=== PATIENT | male | born 1940 | race Caucasian/White ===

== ENCOUNTER 2017-05-06 12:13 | Inpatient (IN) | payer OTHER, MEDICARE ==
--- NOTE | 2017-05-06 12:37 | PDOC ---
History of Present Illness - General History Source: Patient Exam Limitations: No Limitations - History of Present Illness Initial Comments: 05/06/17 12:42 The patient is a 76 year old male with significant history of hypertension, hyperlipidemia, diet controlled diabetes, COPD, sleep apnea, atrial fibrillation several years ago, who presents to the ED complaining of approximately 1 month of intermittent palpitations with associated exertional dyspnea and lightheadedness. Today, his palpitations, shortness of breath, and lightheadedness became noticeably worse, prompting him to come to the ED for evaluation. The patient also reports left sided neck and shoulder discomfort and "numbness", which his reports has been extending to the left chest over the past month. No true chest pain, no chest pain today. No shortness of breath at rest. He also complains of chronic left lower extremity numbness which is unchanged. The patient denies any fever or chills. He denies nausea, vomiting, or diarrhea. He denies any acute visual changes, headache, or focal weakness. He denies any peripheral edema. Patient noted to be tachycardic to the 160s on evaluation. PCP: Dr. Herrera (retired) Air Brake Man: Dr. Butt Ham Sawyer: Dr. Schafer SH: Does endorse moderate alcohol consumption. States he drank coffee this morning prior to the onset of his symptoms today. NKDA <Mary Kenny - Last Filed: 05/06/17 13:58> <Pari Delacruz - Last Filed: 05/06/17 14:29> - General Chief Complaint: Palpitations Stated Complaint: PALPITATIONS Time Seen by Provider: 05/06/17 12:23 Past History <Mary Kenny - Last Filed: 05/06/17 13:58> - Past Medical History COPD: Yes Disorders: Yes (prostatic hypertrophy) HTN: Yes Hypercholesterolemia: Yes - Psycho/Social/Smoking Cessation Hx Anxiety: No Suicidal Ideation: No Smoking History: Unknown if ever smoked Have you smoked in the past 12 months: No If you are a former smoker, when did you quit?: MORE THAN 10 YEARS Information on smoking cessation initiated: No Hx Alcohol Use: No Drug/Substance Use Hx: No Substance Use Type: None <Pari Delacruz - Last Filed: 05/06/17 14:29> - Past Medical History Allergies/Adverse Reactions: Allergies Allergy/AdvReac Type Severity Reaction Status Date / Time No Known Allergies Allergy Verified 05/06/17 12:18 Home Medications: Ambulatory Orders Rosuvastatin Calcium [Crestor] 5 mg PO DAILY 05/12/15 Chlorthalidone 25 mg PO DAILY 05/06/17 Clonidine HCl 0.1 mg PO Q7D 05/06/17 Colchicine 0.6 mg PO BID 05/06/17 Doxazosin Mesylate 8 mg PO DAILY 05/06/17 Finasteride 5 mg PO DAILY 05/06/17 Finasteride 5 mg PO DAILY 05/06/17 Review of Systems - Review of Systems Able to Perform ROS?: Yes Comments:: 05/06/17 12:50 GENERAL/CONSTITUTIONAL: +Generalized malaise. No fever or chills. HEAD, EYES, EARS, NOSE AND THROAT: +"I can hear my heartbeat"x 6 months. No acutes change in vision. No ear pain or discharge. No sore throat. CARDIOVASCULAR: +Intermittent palpitations, exertional dyspnea x 1 month, lightheadedness. +L sided chest discomfort. No peripheral edema. RESPIRATORY: No cough, wheezing, or hemoptysis. GASTROINTESTINAL: No nausea, vomiting, diarrhea or constipation. GENITOURINARY: No dysuria, frequency, or change in urination. MUSCULOSKELETAL: +L neck and shoulder discomfort. +Chronic lower back pain. No muscle swelling or pain. SKIN: No rash NEUROLOGIC: +Numbness in left shoulder/chest x 1month. +chronic LLE numbness. No headache, vertigo, loss of consciousness, or change in strength. ENDOCRINE: No increased thirst. No abnormal weight change. HEMATOLOGIC/LYMPHATIC: No anemia, easy bleeding, or history of blood clots. ALLERGIC/IMMUNOLOGIC: No hives or skin allergy. <Mary Kenny - Last Filed: 05/06/17 13:58> *Physical Exam - Vital Signs Last Vital Signs Temp Pulse Resp BP Pulse Ox 98.4 F 150 H 18 152/101 100 05/06/17 12:18 05/06/17 12:18 05/06/17 12:18 05/06/17 12:18 05/06/17 12:18 - Physical Exam Comments: 05/06/17 12:53 GENERAL: Awake, alert, and fully oriented, in no acute distress HEAD: No signs of trauma EYES: PERRLA, EOMI, sclera anicteric, conjunctiva clear ENT: Auricles normal inspection, hearing grossly normal, nares patent, oropharynx clear without exudates. Moist mucosa NECK: Normal ROM, supple, no lymphadenopathy, JVD, or masses LUNGS: Lung sounds diminished at the bases. No wheezes, and no crackles HEART: Tachycardic, irregularly irregular, no murmurs, rubs or gallops ABDOMEN: Soft, obese abdomen. Nontender, normoactive bowel sounds. No guarding , no rebound. No masses EXTREMITIES: Normal range of motion, no edema. No clubbing or cyanosis. No cords, erythema, or tenderness NEUROLOGICAL: Cranial nerves II through XII grossly intact. Normal speech, normal gait. MS 5/5/ x 4 extremities. Sensation intact throughout. SKIN: Warm, Dry, normal turgor, no rashes or lesions noted. <Mary Kenny - Last Filed: 05/06/17 13:58> - Vital Signs Last Vital Signs Temp Pulse Resp BP Pulse Ox 98.4 F 150 H 18 152/101 100 05/06/17 12:18 05/06/17 12:18 05/06/17 12:18 05/06/17 12:18 05/06/17 12:18 <Pari Delacruz - Last Filed: 05/06/17 14:29> Heart Score/ECG Review - History History: Moderately suspicious - Electrocardiogram EKG: Significant ST-depression - Age Age: >/= 65 - Risk Factors Risk Factors Heart Score: Yes Hx Hypercholesterolemia, Yes Hx Hypertension, Yes Hx Diabetes Based on the list above the patient has:: >/=3 risk factors or Hx atherosclerotic disease - Troponin Troponin: </= normal limit - Score Heart Score - Total: 7 - ST and T Comment:: 05/06/17 14:28 afib at 152, st depression v3-v6, I, avl, abnl ekg <Pari Delacruz - Last Filed: 05/06/17 14:29> ED Treatment Course - LABORATORY CBC & Chemistry Diagram: 05/06/17 12:43 05/06/17 12:43 - RADIOLOGY Radiology Studies Ordered: 05/06/17 13:22 Chest x-ray, reviewed and interpreted by Dr. Manzo Radiograph Interpretation: 05/06/17 13:25 Impression: No evidence of airspace consolidation, pulmonary vascular congestion or pleural effusion. <Mary Kenny - Last Filed: 05/06/17 13:58> - LABORATORY CBC & Chemistry Diagram: 05/06/17 12:43 05/06/17 12:43 <Pari Delacruz - Last Filed: 05/06/17 14:29> Medical Decision Making - Medical Decision Making 05/06/17 12:[address] Carbajal, covering membership manager for patient's membership manager, Dr. Butt. States Dr. Butt will see the patient. 05/06/17 13:[address] Butt at [phone]. Awaiting callback. 05/06/17 13:[address] Butt who agreed to consult. Requested patient be started on Eliquis 5 BID with telemetry admission. <Mary Kenny - Last Filed: 05/06/17 13:58> - Critical Care Time Total Critical Care Time (minutes): 30 Critical Care Statement: The care of this patient involved high complexity decision making to prevent further life threatening deterioration of the patient 's condition and/or to evaluate & treat vital organ system(s) failure or risk of failure. - Medical Decision Making 05/06/17 13:10 a/p: 76yo male with afib w rvr. Given month long hx of palpitations concerns for PAF. Currently in RVR. -Will check labs, tsh, trop -cardizem iv -repeat ekg -cardiac monitoring -will discuss with cardiology -most likely will need inpt admission for further eval and workup for new onset afib 05/06/17 13:11 re-eval: HR 97. Pt currently asymptomatic. Still with afib but now with a CVR -will give PO cardizem -pt pending xray and lab results 05/06/17 14:[address] Butt requests elaquis 5mg BID Case discussed with Dr. Cardenas (covering for DR. Schafer) who will see the patient in consult Case discussed with DR. Lim (IM-hospitalist) who accepts pt to hospital. Admit under Dr. Stephenson to tele. 05/06/17 14:15 <Pari Delacruz - Last Filed: 05/06/17 14:29> *DC/Admit/Observation/Transfer - Attestations Scribe Attestion: 05/06/17 12:54 Documentation prepared by Mary Kenny, acting as medical records manager for Pari Delacruz DO. <Mary Kenny - Last Filed: 05/06/17 13:58> - Discharge Dispostion Admit: Yes - Attestations Scribe Attestion: 05/06/17 13:21 05/06/17 13:22 Physician Attestion: 05/06/17 14:27 A portion of this note was documented by scribe services under my direction. I have reviewed the details of the note, within reason, and agree with the documentation with the following case summary and management plan written by me. <Pari Delacruz - Last Filed: 05/06/17 14:29> Diagnosis at time of Disposition: Hypomagnesemia Atrial fibrillation Qualifiers: Atrial fibrillation type: unspecified Qualified Code(s): I48.91 - Unspecified atrial fibrillation - Referrals Referrals: Rudy Herrera MD [Primary Care Provider] -
[2017-05-06] MEDS ORDERED: dilTIAZem HCL 50 MG/10 ML - 10 ML VIAL IVPUSH ONE ×2 (12:39→16:13)
[2017-05-06 12:55] LABS: BASOPHIL 0.6 % (0-2.0); MCHC 34.4 g/dl (32.0-35.9); MEAN CELL VOLUME 87.3 fl (80-96); MEAN PLT VOLUME 8.3 fl (7.5-11.1); NEUTROPHILS 71.3 % (42.8-82.8); PLATELET COUNT 149 K/MM3 (134-434); RDW 13.2 % (11.9-15.9)
[2017-05-06] MEDS ORDERED: dilTIAZem HCL 30 MG TABLET (FP) PO ONE ×2 (13:08→16:03)
[2017-05-06 13:10] LABS: INR 1.18 (0.82-1.09)
[2017-05-06 13:13] LABS: ACTIVATED PTT 30.7 SECONDS (26.9-34.4)
[2017-05-06] MEDS ORDERED: dilTIAZem HCL 30 MG TABLET (FP) ONE ×2 (13:15→16:09)
[2017-05-06 13:28] LABS: ALBUMIN 3.8 g/dl (3.4-5.0); ALK PHOS 65 U/L (45-117); ANION GAP 7 (8-16); BILIRUBIN,TOTAL 0.5 mg/dL (0.2-1.0); CALCIUM 9.9 mg/dL (8.5-10.1); CO2 31 mmol/L (21-32); CPK 140 IU/L (39-308); CREATININE 0.8 mg/dL (0.7-1.3); GLUCOSE,RANDOM 181 mg/dL (74-106); MAGNESIUM 1.4 mg/dL (1.8-2.4); SGOT/AST 21 U/L (15-37); SGPT/ALT 35 U/L (12-78); TOT PROT 7.3 g/dl (6.4-8.2)
[2017-05-06] MEDS ORDERED: MAGNESIUM SULF 50% (8.12 MEQ/2 ML-1 GM VIAL) IVPB ONE (13:33)
[2017-05-06 13:36] LABS: THYROID STIMULATING HORMONE 0.43 uIU/ml (0.358-3.74); TROPONIN I 0.02 ng/ml (0.00-0.05)
[2017-05-06] MEDS ORDERED: MAGNESIUM SULF 50% (8.12 MEQ/2 ML-1 GM VIAL) ONE (13:43)
--- NOTE | 2017-05-06 14:28 | CON.CARD ---
Consult Consult Specialty:: cardio Referred by:: ER Reason for Consultation:: Afib - History of Present Illness Chief Complaint: palpitations History of Present Illness: 76 yo male presented to ER due to palpitations. noted to be in rapid Afib, given mult doses of po and iv diltiazem, and started on Eliquis. pt describes feeling his heart racing earlier this am. he also felt very sob with routine house chore (vacuuming the carpet). sat and rest, checked BP which was 100 diast, unusual for him so called my office and i advised come in. no definite heart racing feeling prior to today. has chronic pulsatile tinnutus waxes and wanes for few yrs (proven to be unrelated to any of his meds in past). has had PVC palpitations at times (skipped beats), none of late. but never rapid heart racing feeling. denies any cp/tightness/heaviness. has chronic sx of phlegm in airways as well as ears feeling clogged, with head pressure--stable/ongoing sx's. has had numbness in toes/feet for a while now, not yet worked up--recently referred to neuro but appt still pending. for few weeks he has been feeling numbness in L side of head/L shoulder and upper arm, and L axillary line--this is new. it is nonexertional, present every day pretty much. PMH: HTN HPL COPD BPH gout DM--diagnosed 2016, controlled with diet only - Alcohol/Substance Use Hx Alcohol Use: No - Smoking History Smoking history: Unknown if ever smoked Have you smoked in the past 12 months: No If you are a former smoker, when did you quit?: MORE THAN 10 YEARS Home Medications - Allergies Allergies/Adverse Reactions: Allergies Allergy/AdvReac Type Severity Reaction Status Date / Time No Known Allergies Allergy Verified 05/06/17 12:18 - Home Medications Home Medications: Ambulatory Orders Rosuvastatin Calcium [Crestor] 5 mg PO DAILY 05/12/15 Chlorthalidone 25 mg PO DAILY 05/06/17 Clonidine HCl 0.1 mg PO Q7D 05/06/17 Colchicine 0.6 mg PO BID 05/06/17 Doxazosin Mesylate 8 mg PO DAILY 05/06/17 Finasteride 5 mg PO DAILY 05/06/17 Finasteride 5 mg PO DAILY 05/06/17 Family Disease History - Family Disease History Family History: Denies (no cmp) Review of Systems - Review of Systems Constitutional: denies: Chills, Fever Eyes: denies: Eye Pain HENT: denies: Nasal Congestion Neck: denies: Stiffness Cardiovascular: denies: Edema Respiratory: denies: Orthopnea, PND Gastrointestinal: denies: Diarrhea, Rectal Bleeding Genitourinary: denies: Burning, Hematuria Musculoskeletal: denies: Muscle Pain Integumentary: denies: Rash Neurological: reports: Numbness. denies: Seizure, Syncope Endocrine: denies: Excessive Sweating Hematology/Lymphatic: denies: Excessive Bleeding Vital Signs: Vital Signs Temperature 98.4 F 05/06/17 12:18 Pulse Rate 90 05/06/17 13:04 Respiratory Rate 18 05/06/17 12:18 Blood Pressure 152/101 05/06/17 12:18 O2 Sat by Pulse Oximetry (%) 98 05/06/17 12:53 Constitutional: Yes: Well Nourished, No Distress Eyes: No: Sclera Icterus HENT: No: Nasal Congestion Neck: No: Decreased ROM Respiratory: Yes: CTA Bilaterally. No: Accessory Muscle Use, Rales, Wheezes Gastrointestinal: Yes: Normal Bowel Sounds. No: Distention, Hepatomegaly, Palpable Mass, Tenderness Cardiovascular: Yes: Pulse Irregular JVD: No Carotid Bruit: No PMI: Non-Displaced Heart Sounds: Yes: S1, S2. No: Gallop Murmur: No: Systolic Murmur, Diastolic Murmur Musculoskeletal: Yes: Other (No kyphosis) Extremities: No: Cool, Cyanosis Edema: No Peripheral Pulses: 2+ Left Carotid, 2+ Right Carotid, 2+ Left Doralis Pedis, 2+ Right Dorsalis Pedis Integumentary: No: Jaundice Neurological: Yes: Alert, Oriented (x3) Psychiatric: No: Agitated - Other Data Labs, Other Data: CBC, BMP 05/06/17 12:43 05/06/17 12:43 INR, PTT INR 1.18 (0.82-1.09) H 05/06/17 12:43 Troponin, BNP 05/06/17 12:43 Troponin I 0.02 B-Natriuretic Peptide 92.88 Troponin, BNP 05/06/17 12:43 Troponin I 0.02 B-Natriuretic Peptide 92.88 Laboratory Tests 05/06/17 05/06/17 12:43 12:43 WBC 6.0 Hgb 14.7 Plt Count 149 Sodium 135 L Potassium 3.8 D Carbon Dioxide 31 D BUN 16 D Creatinine 0.8 D AST 21 ALT 35 D Creatine Kinase 140 Troponin I 0.02 B-Natriuretic Peptide 92.88 TSH 0.43 Assessment/Plan Coronary Calcium Score 01/20: 1074, 83rd %ile MIBI 02/20 (lexiscan): no STs, no isch; nl EF; mild LVE w/o TID Echo 01/20: TDS; nl LV/EF; nl RV; nl LA; mild /AI; nl LAP (no RVSP) CXR: clear lungs/pleura ECG: tachy with HR 152 = afib vs atypical flutter with variable A:V conduction ( based on R-R intervals, regular at times); normal axis. ischemic ST depressions V3-V6, I/II/avF Afib-- -NEW DX, RAPID HR'S IN ER WITH TRANSIENT RESPONSE TO DOSES OF PO AND IV DILTIAZEM. -CHADS-VASC = 4, HENCE BENEFITS OF AC >> RISKS. CONT ELIQUIS 5MG BID -ischemic ST changes on ecg at HR 152, with significant coronary athero burden on coronary calcium score--rpt ECG at lower HR, monitor troponins. -will need nuclear stress test for risk stratification--ok as outpt if remains without angina and with negative enzymes, and ST segments normalize with HR control (repeat ecg ordered for AM) -received diltiazem 30mg po x2, 20mg IVP x2 over the past 4 hours or so in ER-- HRs improved but still suboptimal -admit to tele -unfortunately, his med s.e. history (including intolerable edema on diltiazem 240mg qd) and h/o chronic bronchitis with episodic wheezing, makes it fairly unlikely he will tolerate high doses of CCB or BB over the long-term. -will start with toprol 50 bid, add diltiazem CD 120mg qd if not controlled -if does not convert to sinus overnight, will plan HODAN-guided DCCV tomorrow Essential hypertension -WELL-DOCUMENTED W.C. HTN IN OFFICE, WITH SIGNIF ANXIETY ABOUT BP. -HE HAS LIKELY BEEN CHRONICALLY SUBOPTIMALLY CONTROLLED OUT OF OFFICE WELL-- FOR LONG TIME DID NOT DO HOME CHECKS DUE TO ANXIETY, RECENTLY HOME BP'S CONTROLLED ? DUE TO SIGNIFICANTLY IMPROVED DIET AND WT LOSS (? MACHINE ACCURATE- -NOT CHECKED). -BP MODERATELY ELEVATED HERE, LIKELY ANXIETY COMPONENT IN RAPID AFIB WITH SX'S -S.E.S SIGNIFICANTLY LIMIT MED OPTIONS HERE (PREVIOUSLY INTOLERANT OF HYDRALAZINE, AMLODIPINE, NIFEDIPINE, DILTIAZEM 240MG, BYSTOLIC 5MG, SPIRONO, EPLERENONE, LABETALOL 100MG). -URINARY FREQ AND GOUT LIMITS DIURETICS. -cont home benicar (valsartan while here), HCTZ--hold clonidine patch while observe BP trend with addition of BB +/- CCB here Edema -LE VEIN DUPLEX UNDERWHELMING FOR PLATINUM VENOUS INS'Y--1+ REFLUX ONLY -VERY SENSITIVE TO VENODILATING MEDS (MULT CCBS AND BYSTOLIC INTOLERABLE IN PAST ) COPD/Chronic bronchitis -IMPROVED ON CURRENT INHALER REGIMEN, PER DR ELLER Obstructive sleep apnea -COMPLIANT WITH CPAP; Pure hypercholesterolemia -PRIMARY PREVN; SUBCLINICAL ATHERO--COR CALCIUM SCORE HI (1074, 83RD %ILE) -CONTROLLED WITH CRESTOR 5MG QD AT HOME; CONT SAME (OR DOSE EQUIVALENT) HERE Type 2 diabetes mellitus without complication -RECENT NEW DX OF DM WITH A1C 6.7 -IMPROVED SIGNIFICANTLY WITH TLC'S--6.1 LAST.
[2017-05-06] MEDS: APIXABAN 5 MG TABLET PO SCH ×2 (14:38→21:36)
--- NOTE | 2017-05-06 15:49 | HP ---
CHIEF COMPLAINT: Palpitations and shortness of breath PCP: Previously Dr. Perdomo, Stencil Machine Operator Dr. Butt HISTORY OF PRESENT ILLNESS: Patient is a 76 yo M w/ PMH DM, HTN, HLD, COPD, EYAD, previous afib in the past comes to the ED c/o Palpitations and shortness of breath since this morning. Patient was in his baseline state of health until 1 month ago when he began to feel a "numbness and heaviness" along the left side of his body. The numbness was associated with a feeling of "pressure in his ears". This morning, the patient states that he was doing chores when he felt a sudden onset of fluttering in the chest accompanied by shortness of breath and lightheadedness. The patient took his blood pressure with a home wrist cuff which showed "a low number". The patient's new onset of symptoms prompted him to go to the ED. Patient has never had an episode like this in the past. Patient is also complaining of "numbness and tingling in the feet" Which has been present for several months. ER course was notable for: (1) Heart rate to 130 (2) Blood Pressure 122/92 (3) Patient received Cardizem 20mg IVPUSH, 30mg Cardizem PO two times. Patient' s rate responded to this medication, but then was back in the 130's (4) EKG reveals rapid afib with RVR and ST depressions Recent Travel: none PAST MEDICAL HISTORY: -see above PAST SURGICAL HISTORY: -no past surgeries Social History: Smoking: Patient smoked 2 packs per day for 50 years, quit 10 years ago Alcohol: social drinker Drugs: Family History: Mother- in her 70's due to a heart attack Father- of bladder cancer Brother- in his late 50's due to cardiac issues; he had had a valve replacement Allergies No Known Allergies Allergy (Verified 05/06/17 12:18) HOME MEDICATIONS: Home Medications Medication Instructions Recorded Rosuvastatin Calcium [Crestor] 5 mg PO DAILY 05/12/15 Chlorthalidone 25 mg PO DAILY 05/06/17 Clonidine HCl 0.1 mg PO Q7D 05/06/17 Colchicine 0.6 mg PO BID 05/06/17 Doxazosin Mesylate 8 mg PO DAILY 05/06/17 Finasteride 5 mg PO DAILY 05/06/17 Finasteride 5 mg PO DAILY 05/06/17 REVIEW OF SYSTEMS Negative except for above PHYSICAL EXAMINATION GENERAL: Awake, alert, and fully oriented, in no acute distress. HEAD: Normal with no signs of trauma. EYES: Pupils equal, round and reactive to light, extraocular movements intact, sclera anicteric, conjunctiva clear. No lid lag. NECK: Normal range of motion, supple without lymphadenopathy, JVD, or masses. LUNGS: Breath sounds equal, clear to auscultation bilaterally. No wheezes, and no crackles. No accessory muscle use. HEART: Regular rate and rhythm, normal S1 and S2 without murmur, rub or gallop. ABDOMEN: Soft, nontender, not distended, normoactive bowel sounds, no guarding, no rebound, no masses. MUSCULOSKELETAL: Normal range of motion at all joints. No bony deformities or tenderness. No CVA tenderness. UPPER EXTREMITIES: 2+ pulses, warm, well-perfused. No cyanosis. No clubbing. No peripheral edema. LOWER EXTREMITIES: 2+ pulses, warm, well-perfused. No calf tenderness. No peripheral edema. NEUROLOGICAL: Cranial nerves II-X intact. Normal speech. Gait not observed. PSYCHIATRIC: Cooperative. Good eye contact. Appropriate mood and affect. SKIN: Warm, dry, normal turgor, no rashes or lesions noted, normal capillary refill. ASSESSMENT/PLAN: 76 yo M w/ PMH DM, HTN, COPD, EYAD presents to the ED complaining of palpitations , lightheadedness. In the ED, patient was found to be in rapid afib with RVR with heart rates in the 150's and a stable blood pressure. Patient admitted to telemetry for rate and rhythm control. #Rapid a-fib with RVR -Patient received Cardizem IV and oral doses which controlled rate temporarily -cardizem GTT -Cardiology consulted: Dr. Butt; requests patient be placed on eliquis -TSH .43 -troponin negative x1, will repeat this PM -Echo in AM -CHADS VASC Score= 4 #Diabetes mellitus (uncontrolled) -HbA1c -daily sugars -diabetic diet -will hold off on insulin until A1C comes back #COPD/EYAD -Patient on Breo and Ventolin PRN at home -Spiriva daily and Nebs PRN -pulmonology consulted; Dr. Schafer -patient's son to bring his home CPAP machine to hospital #HTN -patient on chlorthalidone at home -continue home medications #HLD -continue home crestor #BPH -continue home flomax FEN -no indication for fluids at this time -monitor lytes -diabetic diet prophy -on eliquis 5mg -no indication for Gi prophylaxsis Dispo -admit to tele for rate control Problem List - Problem (1) Atrial fibrillation Code(s): I48.91 - UNSPECIFIED ATRIAL FIBRILLATION Qualifiers: Atrial fibrillation type: unspecified Qualified Code(s): I48.91 - Unspecified atrial fibrillation (2) Dependent edema Code(s): R60.9 - EDEMA, UNSPECIFIED (3) Diabetes mellitus Code(s): E11.9 - TYPE 2 DIABETES MELLITUS WITHOUT COMPLICATIONS (4) COPD (chronic obstructive pulmonary disease) Code(s): J44.9 - CHRONIC OBSTRUCTIVE PULMONARY DISEASE, UNSPECIFIED (5) EYAD (obstructive sleep apnea) Code(s): G47.33 - OBSTRUCTIVE SLEEP APNEA (ADULT) (PEDIATRIC) (6) BPH (benign prostatic hyperplasia) Code(s): N40.0 - BENIGN PROSTATIC HYPERPLASIA WITHOUT LOWER URINRY TRACT SYMP (7) HLD (hyperlipidemia) Code(s): E78.5 - HYPERLIPIDEMIA, UNSPECIFIED Visit type - Emergency Visit Emergency Visit: Yes ED Registration Date: 05/06/17 Care time: The patient presented to the Emergency Department on the above date and was hospitalized for further evaluation of their emergent condition. - New Patient This patient is new to me today: Yes Date on this admission: 05/06/17 - Critical Care Critical Care patient: No
--- NOTE | 2017-05-06 16:00 | CONSULT ---
Consultation: REQUESTING PROVIDER: Andrea CONSULT REQUEST: We have been asked to medically evaluate this patient for ( specify). HISTORY OF PRESENT ILLNESS: Pt is a 76 y/o M with PMH HTN, HLD, NIDDM, COPD, EYAD, AF who presented to the ED with sudden onset of palpitations at home. Pt has been having palpitations for the last month but states that today he suddenly felt constant and more intense palpitations unlike what he had been feeling. He denies SOB, lightheadedness, dizziness different from what he'd been experiencing previously. Pt states he has constant left sided numbness throughout his body. Pt not feeling palpitations in this moment. REVIEW OF SYSTEMS: CONSTITUTIONAL: Absent: fever, chills, diaphoresis, generalized weakness, malaise, loss of appetite, weight change HEENT: Absent: rhinorrhea, nasal congestion, throat pain, throat swelling, difficulty swallowing, mouth swelling, ear pain, eye pain, visual changes CARDIOVASCULAR: palpitations, irregular heart rate Absent: chest pain, syncope,, lightheadedness, peripheral edema RESPIRATORY: Absent: cough, shortness of breath, dyspnea with exertion, orthopnea, wheezing, stridor, hemoptysis GASTROINTESTINAL: Absent: abdominal pain, abdominal distension, nausea, vomiting, diarrhea, constipation, melena, hematochezia GENITOURINARY: Absent: dysuria, frequency, urgency, hesitancy, hematuria, flank pain, genital pain MUSCULOSKELETAL: Absent: myalgia, arthralgia, joint swelling, back pain, neck pain SKIN: Absent: rash, itching, pallor HEMATOLOGIC/IMMUNOLOGIC: Absent: easy bleeding, easy bruising, lymphadenopathy, frequent infections ENDOCRINE: Absent: unexplained weight gain, unexplained weight loss, heat intolerance, cold intolerance NEUROLOGIC: chronic L paresthesias, unchanged in current setting Absent: headache, focal weakness or , dizziness, unsteady gait, seizure, mental status changes, bladder or bowel incontinence PSYCHIATRIC: Absent: anxiety, depression, suicidal or homicidal ideation, hallucinations. PHYSICAL EXAMINATION GENERAL: Awake, alert, and fully oriented, in no acute distress. HEAD: Normal with no signs of trauma. EYES: Pupils equal, round and reactive to light, extraocular movements intact, sclera anicteric, conjunctiva clear. No lid lag. EARS, NOSE, THROAT: nares patent, oropharynx clear without exudates. Moist mucous membranes. NECK: Normal range of motion, supple without lymphadenopathy, JVD, or masses. No carotid bruits LUNGS: Slightly distant breath sounds. Breath sounds equal, clear to auscultation bilaterally. No wheezes, and no crackles. No accessory muscle use. HEART: Regular rate and rhythm, normal S1 and S2 without murmur, rub or gallop. ABDOMEN: Soft, nontender, not distended, normoactive bowel sounds, no guarding, no rebound, no masses. No hepatomegaly or splenomegaly. MUSCULOSKELETAL: Normal range of motion at all joints. No bony deformities or tenderness. No CVA tenderness. UPPER EXTREMITIES: 2+ pulses, warm, well-perfused. No cyanosis. No clubbing. Cap refill <2 seconds. No peripheral edema. LOWER EXTREMITIES: 2+ pulses, warm, well-perfused. No calf tenderness. No peripheral edema. NEUROLOGICAL: Cranial nerves II-XII intact. Normal speech. Normal gait. PSYCHIATRIC: Cooperative. Good eye contact. Appropriate mood and affect. SKIN: Warm, dry, normal turgor, no rashes or lesions noted. Active Medications Generic Name Dose Route Start Last Admin Trade Name Freq PRN Reason Stop Dose Admin Apixaban 5 mg 05/06/17 14:00 05/06/17 14:38 Eliquis - PO 5 mg BID JOSELUIS Administration ASSESSMENT/PLAN: 76M w/ PMH HTN, HLD, NIDDM, COPD, EYAD, AF who presented to ED with acute onset palpitations not associated with activity. Pt admitted for recurrence of Afib, acute onset. #Afib mgt per cardio -hx of COPD & EYAD -will likely need sleep study screening and possibly treatment for EYAD -If pt hasn't been tested for sleep apnea, will arrange for out pt testing -No bronchodilators at this time as they might precipitate fast heart rate and pt has no shortness of breath at this time #Pulm -CXR left lung base scarring -CT chest (09/2015) enlarged lymph node -Hx COPD w/ extensive smoking history -continue current management for now Dispo: We will continue to follow the patient. Thank you for this consultative opportunity. Visit type - Emergency Visit Emergency Visit: No - New Patient This patient is new to me today: No - Critical Care Critical Care patient: No
[2017-05-06] MEDS ORDERED: DILTIAZEM INJECTION 125 MG in DEXTROSE 5%-WATER - 100 ML IVPB SCH (16:15)
--- NOTE | 2017-05-06 16:51 | PN ---
Teaching Attending Note Name of Resident: Francisco Javier Antonio ATTENDING PHYSICIAN STATEMENT I saw and evaluated the patient. I reviewed the resident's note and discussed the case with the resident. I agree with the resident's findings and plan as documented. SUBJECTIVE: This is a 76-year-old man with a history of HTN, type 2 DM, COPD, EYAD, hyperlipidemia, BPH, gout who comes to the ER complaining of palpitations with SOB. He has been having palpitations and tingling of his left arm intermittently for the past month. This morning, he drank 3 espressos then started vacuuming when he felt palpitations with lightheadedness and SOB. He called Dr. Butt's office and was advised to go to the ER. OBJECTIVE: Vital Signs Period Temp Pulse Resp BP Sys/Berumen Pulse Ox Last 24 Hr 98.4 F 90-150 18 152/101 98-100 HEART: Irregularly irregular, tachycardic LUNGS: Clear ABDOMEN: Obese, soft, non-tender, non-distended, normal BS EXTREMITIES: Trace edema ASSESSMENT AND PLAN: This is a 76-year-old man with a history of HTN, type 2 DM, COPD, EYAD, hyperlipidemia, BPH, gout who presented to the ER with palpitations and SOB. 1. Atrial fibrillation with RVR - Patient given Cardizem 20 mg IVP x 2 and 30 mg PO x 2 in ER - Start Cardizem IV drip - Start Eliquis - Monitor on telemetry - Echocardiogram - Serial troponins - Cardiology consult 2. Ischemic changes on EKG - ST depressions present in V3-V6, I, II, aVF - ? rate-related - Serial troponins - Serial EKGs - Echocardiogram 3. HTN - Continue Clonidine, Chlorthalidone, Cardura 4. Hyperlipidemia - Continue Crestor 5. Type 2 DM - Diet-controlled - Fingersticks with Novolog sliding scale - Check HgbA1c 6. COPD - Stable 7. EYAD - Uses CPAP at night 8. BPH - Continue Proscar 9. History of gout - Continue Colchicine
[2017-05-06] MEDS ORDERED: METOPROLOL TARTRATE 5 MG/5 ML VIAL IVPUSH ONE (16:52)
--- NOTE | 2017-05-06 16:52 | EKG ---
Test Reason : Blood Pressure : / mmHG Vent. Rate : 152 BPM Atrial Rate : 150 BPM P-R Int : 000 ms QRS Dur : 162 ms QT Int : 294 ms P-R-T Axes : 000 042 069 degrees QTc Int : 467 ms ATRIAL FIBRILLATION WITH RAPID VENTRICULAR RESPONSE NON-SPECIFIC INTRA-VENTRICULAR CONDUCTION BLOCK ABNORMAL ECG WHEN COMPARED WITH ECG OF 29-NOV-2001 08:16, ATRIAL FIBRILLATION HAS REPLACED SINUS RHYTHM VENT. RATE HAS INCREASED BY 69 BPM QRS DURATION HAS INCREASED ST SEGMENT DEPRESSIONS IN BOTH LIMB AND PRECORDIAL LEADS COMPATIBLE WITH ISCHEMIA FOLLOW UP TRACINGS ARE RECOMMENDED. Confirmed by SAPPHIRE SEO MD ([id number]) on 05/06/2017 4:52:13 PM Referred By: Confirmed By:SAPPHIRE SEO MD
--- NOTE | 2017-05-06 17:02 | HP ---
CHIEF COMPLAINT: Shortness of breath with palpitations PCP: Dr. Smith Cardiology: Dr. Butt. HISTORY OF PRESENT ILLNESS: 76 yo M significant PMHx of HTN, HLD,DM, COPD, and EYAD presents to ED with palpitation and SOB. He states that for the past month he has had increased palpitations and SOB. Associated with numbness and heaviness for left side of body. He states that this morning he woke up and had 3 espresso drinks and started to vacuum his floors when he became light headed and felt his heart racing. He sat down in hopes that it would resolve. It did not so he called his singing waiter or waitress and subsequently presented to ER. In ER he was found to to be in rapid AFIB and started on Cardizem. He has a history of Afib in past but resolved on its own. He was not on any anticoagulation. No history of stroke or vascular disease. Denies CP,HOFFMAN,abd. pain, N/V. ER course was notable for: (1)EKG show afib with RVR rate of 130- given cardizem 20 IV and 60 PO (2)Troponin (-) x1 (3)CXR- No acute pathology Recent Travel: Denies PAST MEDICAL HISTORY: HTN, HLD,DM, COPD, EYAD, BPH and gout. PAST SURGICAL HISTORY: Cataract 2012 Social History: Smokin pack year history quit 17yrs ago Alcohol:socially Drugs: denies Family History: Allergies No Known Allergies Allergy (Verified 05/06/17 12:18) HOME MEDICATIONS: Home Medications Medication Instructions Recorded Rosuvastatin Calcium [Crestor] 5 mg PO DAILY 05/12/15 Chlorthalidone 25 mg PO DAILY 05/06/17 Clonidine HCl 0.1 mg PO Q7D 05/06/17 Colchicine 0.6 mg PO BID 05/06/17 Doxazosin Mesylate 8 mg PO DAILY 05/06/17 Finasteride 5 mg PO DAILY 05/06/17 Finasteride 5 mg PO DAILY 05/06/17 REVIEW OF SYSTEMS CONSTITUTIONAL: Absent: fever, chills, diaphoresis, generalized weakness, malaise, loss of appetite, weight change HEENT: Absent: rhinorrhea, nasal congestion, throat pain, throat swelling, difficulty swallowing, mouth swelling, ear pain, eye pain, visual changes CARDIOVASCULAR: palpitations, irregular heart rate, lightheadedness Absent: chest pain, syncope, peripheral edema RESPIRATORY: Absent: cough, shortness of breath, dyspnea with exertion, orthopnea, wheezing, stridor, hemoptysis GASTROINTESTINAL: Absent: abdominal pain, abdominal distension, nausea, vomiting, diarrhea, constipation, melena, hematochezia GENITOURINARY: Absent: dysuria, frequency, urgency, hesitancy, hematuria, flank pain, genital pain MUSCULOSKELETAL: Absent: myalgia, arthralgia, joint swelling, back pain, neck pain SKIN: Absent: rash, itching, pallor HEMATOLOGIC/IMMUNOLOGIC: Absent: easy bleeding, easy bruising, lymphadenopathy, frequent infections ENDOCRINE: Absent: unexplained weight gain, unexplained weight loss, heat intolerance, cold intolerance NEUROLOGIC: Absent: headache, focal weakness or paresthesias, dizziness, unsteady gait, seizure, mental status changes, bladder or bowel incontinence PSYCHIATRIC: Absent: anxiety, depression, suicidal or homicidal ideation, hallucinations. PHYSICAL EXAMINATION GENERAL: AAOx3 , NAD HEAD: NC/AT EYES: PERRLA, EOMI, sclera anicteric, conjunctiva clear. No lid lag. EARS, NOSE, THROAT: . Moist mucous membranes. NECK: Supple, No JVD LUNGS:CTAB. No wheezes, and no crackles. No accessory muscle use. HEART: Irregularly irregular , tachycardic , normal S1 and S2no m/g/r ABDOMEN: Soft, obese nontender, not distended, normoactive bowel sounds, no guarding, no rebound, no masses. No hepatomegaly or splenomegaly. MUSCULOSKELETAL: Normal range of motion at all joints. No bony deformities or tenderness. No CVA tenderness. UPPER EXTREMITIES: 2+ pulses, warm, well-perfused. No cyanosis. No clubbing. No peripheral edema. LOWER EXTREMITIES: 2+ pulses, warm, well-perfused. No calf tenderness. trace bilateral LE peripheral edema. NEUROLOGICAL: Cranial nerves II-XII intact. Normal speech. Normal gait. PSYCHIATRIC: Cooperative. Good eye contact. Appropriate mood and affect. SKIN: Warm, dry, normal turgor, no rashes or lesions noted, normal capillary refill. ASSESSMENT/PLAN: 76 yo M significant PMHx of HTN, HLD,DM, COPD, and EYAD admitted to telemetry for further management of new onset A-Fib with RVR. Problem List - Problem (1) Atrial fibrillation Assessment/Plan: * Admitted to telemetry. * [id number] - 4 ; started on Eliquis 5mg PO daily * Cardizem 20 IV and 60 PO given in ED; rate then continued to go up to 140's - started no cardizem drip * consulted Receiver/Laborer Dr. Butt * Troponin (-) x1 will continue to trend because initial EKG showed some st depressions in inferior lateral leads. * Echo pending to assess LV function. * TSH WNL (2) Hypomagnesemia Assessment/Plan: * Will repleat with 800mg PO * Repeat Mg in AM Visit type - Emergency Visit Emergency Visit: Yes ED Registration Date: 05/06/17 Care time: The patient presented to the Emergency Department on the above date and was hospitalized for further evaluation of their emergent condition. - New Patient This patient is new to me today: Yes Date on this admission: 05/06/17 - Critical Care Critical Care patient: No
[2017-05-06] MEDS ORDERED: METOPROLOL SUCCINATE 50 MG TAB.SR.24H (FP) ONE (17:06)
[2017-05-06] MEDS ORDERED: METOPROLOL TARTRATE 5 MG/5 ML VIAL ONE (17:06)
--- NOTE | 2017-05-06 17:09 | PN ---
Teaching Attending Note Name of Resident: Troy Pollack ATTENDING PHYSICIAN STATEMENT I saw and evaluated the patient. I reviewed the resident's note and discussed the case with the resident. I agree with the resident's findings and plan as documented. Js Mendez MD
[2017-05-06] MEDS: METOPROLOL SUCCINATE 50 MG TAB.SR.24H (FP) PO SCH ×2 (17:13→21:32)
[2017-05-06] MEDS ORDERED: FUROSEMIDE 40 MG/4 ML INJECTABLE VIAL ONE (17:32)
[2017-05-06 18:07] VITALS: BMI 33.9
[2017-05-06] MEDS ORDERED: ALBUTEROL SO4 0.083% IH SOL 2.5 MG/3 ML VIAL.NEB. NEB PRN (18:10)
[2017-05-06] MEDS: ACLIDINIUM BROMIDE 400 MCG/INH AERO.POWD IH SCH (21:28)
[2017-05-06] MEDS: ROSUVASTATIN CA 10 MG TABLET (FP) PO SCH (21:36)
[2017-05-06] MEDS ORDERED: ASPIRIN 325 MG ENTERIC COATED TABLET (FP) PO ONE (23:38)
[2017-05-06] MEDS ORDERED: HEPARIN NA (PORCINE) 5,000 UNITS/ML 1ML VIAL IVPUSH PRN ×2 (23:40)
--- NOTE | 2017-05-06 23:43 | HOSP ---
Subjective - Review of Symptoms Events since last encounter: Call placed to Hospitalist pager for elevated Troponin. Pt was admitted for Afib w/ RVR is currently rate controlled w/ Metoprolol 50 BID. First troponin was <0.02. Repeat troponin drawn 6 hours later was 3.01. Pt seen and examined. Pt states he is asymptomatic. No active chest pain. Patient was resting comfortably when notified of the elevated troponin, became mildly anxious upon receiving news. Physical Examination Vital Signs: Vital Signs Temperature 97.4 F L 05/06/17 21:37 Pulse Rate 85 05/06/17 21:37 Respiratory Rate 20 05/06/17 21:37 Blood Pressure 106/57 05/06/17 21:37 O2 Sat by Pulse Oximetry (%) 96 05/06/17 20:10 PHYSICAL EXAM: GEN: AAOx3, anxious HEENT: EOMi CV: S1, S2, irregularly irregular rhythm, regular rate LUNG: CTABL ABD: Soft, NT Hospitalist Encounter Assessment: Rising troponins, NSTEMI vs demand ischemia. RN placed call to Dr. Butt, awaiting response. Prior EKG when pt was in Afib w/ RVR showed ST depressions. Stat EKG ordered at 11:59PM. EKG reviewed. Irregularly irregular rhythm consistent with Afib. No ST or T wave changes. Repeat cardiac profile ordered in 6 hours. ASA 325mg PO loading dose given. Heparin drip was ordered, not given. Pt is anxious about the news, but aware of the plan. Update: Resident Dr. Dsouza spoke with Dr. Treviño (space operations officer for Dr. Butt). Dr. Treviño agreed with ASA loading dose. Requested continuation of Eliquis and no heparin drip. Hep drip d/c'd. Requested CKMB stat, ordered, value 13.663. Repeat cardiac profile in 6 hours. Update: Repeat Cardiac Profile shows Troponin 2.97. Both Troponin and CKMB are downtrending. Pt continues to be asymptomatic. Repeat cardiac profile ordered for 7:00AM. Visit type - Emergency Visit Emergency Visit: No - New Patient This patient is new to me today: Yes Date on this admission: 05/07/17 - Critical Care Critical Care patient: No
[2017-05-06] MEDS ORDERED: HEPARIN - 25,000 UNIT in SODIUM CHLORIDE 495 ML IV SCH (23:45)
[2017-05-07 02:44] LABS: TROPONIN I 2.97 ng/ml (0.00-0.05)
[2017-05-07 07:45] LABS: BASOPHIL 0.7 % (0-2.0); MCH 30.3 pg (25.7-33.7); MCHC 35.1 g/dl (32.0-35.9); MEAN CELL VOLUME 86.3 fl (80-96); NEUTROPHILS 53.4 % (42.8-82.8); PLATELET COUNT 181 K/MM3 (134-434); RDW 13.2 % (11.9-15.9); WHITE BLOOD COUNT 6.9 K/mm3 (4.0-10.0)
[2017-05-07 08:08] LABS: ALBUMIN 3.8 g/dl (3.4-5.0); ANION GAP 9 (8-16); BILIRUBIN,TOTAL 0.5 mg/dL (0.2-1.0); CALCIUM 9.1 mg/dL (8.5-10.1); CO2 33 mmol/L (21-32); CREATININE 0.9 mg/dL (0.7-1.3); GLUCOSE,RANDOM 108 mg/dL (74-106); MAGNESIUM 1.9 mg/dL (1.8-2.4); PHOSPHOROUS 3.5 mg/dL (2.5-4.9); SGOT/AST 30 U/L (15-37); SGPT/ALT 34 U/L (12-78)
[2017-05-07 08:09] LABS: ALK PHOS 62 U/L (45-117)
[2017-05-07] MEDS ORDERED: HYDROCHLOROTHIAZIDE 25 MG TABLET (FP) PO SCH (10:00)
[2017-05-07] MEDS ORDERED: APIXABAN 5 MG TABLET PO SCH (10:00)
[2017-05-07] MEDS ORDERED: CHLORTHALIDONE 25 MG TABLET PO SCH (10:00)
[2017-05-07] MEDS ORDERED: VALSARTAN 160 MG TABLET (UD) PO SCH (10:00)
[2017-05-07] MEDS ORDERED: PT OWN MED DRAWER 7, Y5N ONE ×2 (10:30→22:39)
[2017-05-07] MEDS: VALSARTAN 160 MG TABLET (UD) PO SCH (10:33)
[2017-05-07] MEDS: METOPROLOL SUCCINATE 50 MG TAB.SR.24H (FP) PO SCH ×2 (10:34→22:36)
[2017-05-07] MEDS: FINASTERIDE 5 MG TABLET (FP) PO SCH (10:34)
[2017-05-07] MEDS: CHLORTHALIDONE 25 MG TABLET PO SCH (10:34)
[2017-05-07] MEDS: ACLIDINIUM BROMIDE 400 MCG/INH AERO.POWD IH SCH ×2 (10:38→22:39)
--- NOTE | 2017-05-07 10:52 | PN ---
Physical Exam: SUBJECTIVE: Patient seen and examined at bedside. Pt had elevated troponins overnight and was seen by hospitalist. Did not have chest pain. EKG was abnormal , but unclear if demand ischemia vs NSTEMI. Pt has not had any shortness of breath since being in the hospital. Denies headache, cp, sob, abd pain, nausea, diaphoresis, fever. OBJECTIVE: Vital Signs Period Temp Pulse Resp BP Sys/Breumen Pulse Ox Last 24 Hr 97.4 F-98.1 F 77-121 17-20 106-124/57-100 96-99 GENERAL: The patient is awake, alert, and fully oriented, in no acute distress. HEAD: Normal with no signs of trauma. EYES: sclera anicteric, conjunctiva clear. No ptosis. ENT: oropharynx clear without exudates, moist mucous membranes. NECK: Trachea midline, full range of motion, supple. LUNGS: Breath sounds equal, clear to auscultation bilaterally, no wheezes, no crackles, no accessory muscle use. HEART: slightly distant heart sounds. Regular rate and rhythm, S1, S2 without murmur, rub or gallop. ABDOMEN: obese Soft, nontender, nondistended, normoactive bowel sounds, no guarding, no rebound, no hepatosplenomegaly, no masses. EXTREMITIES: 2+ pulses, warm, well-perfused, no edema. NEUROLOGICAL: Cranial nerves II through XII grossly intact. Normal speech, gait not observed. PSYCH: Normal mood, normal affect. SKIN: Warm, dry, normal turgor, no rashes or lesions noted Laboratory Results - last 24 hr 05/06/17 05/06/17 05/07/17 19:20 19:20 01:00 WBC RBC Hgb Hct MCV MCH MCHC RDW Plt Count MPV Neutrophils % Lymphocytes % Monocytes % Eosinophils % Basophils % Sodium Potassium Chloride Carbon Dioxide Anion Gap BUN Creatinine Creat Clearance w eGFR Random Glucose Calcium Phosphorus Magnesium Total Bilirubin AST ALT Alkaline Phosphatase Creatine Kinase 536 H Creatine Kinase Index 2.0 CK-MB (CK-2) 13.663 H 10.895 H Troponin I 3.01 H* D 2.97 H* Total Protein Albumin 05/07/17 05/07/17 05:50 05:50 WBC 6.9 RBC 5.11 Hgb 15.5 Hct 44.1 MCV 86.3 MCH 30.3 MCHC 35.1 RDW 13.2 Plt Count 181 D MPV 9.0 Neutrophils % 53.4 D Lymphocytes % 33.8 D Monocytes % 9.1 Eosinophils % 3.0 Basophils % 0.7 Sodium 137 Potassium 3.4 L Chloride 95 L Carbon Dioxide 33 H Anion Gap 9 BUN 16 Creatinine 0.9 Creat Clearance w eGFR > 60 Random Glucose 108 H D Calcium 9.1 Phosphorus 3.5 Magnesium 1.9 D Total Bilirubin 0.5 AST 30 D ALT 34 Alkaline Phosphatase 62 Creatine Kinase Creatine Kinase Index CK-MB (CK-2) Troponin I Total Protein 7.0 Albumin 3.8 Active Medications Generic Name Dose Route Start Last Admin Trade Name Freq PRN Reason Stop Dose Admin Aclidinium [place] 1 puff 05/06/17 22:00 05/07/17 10:38 Tudorza - IH 1 inh BID JOSELUIS Administration Albuterol Sulfate 1 amp 05/06/17 18:10 Ventolin 0.083% Nebulizer Soln - NEB Q4H PRN SHORT OF BREATH/WHEEZING Chlorthalidone 25 mg 05/07/17 10:00 05/07/17 10:34 [place] - PO 25 mg DAILY JOSELUIS Administration Diltiazem HCl 120 mg 05/07/17 10:45 Cardizem Cd - PO DAILY JOSELUIS Enoxaparin Sodium 100 mg 05/07/17 10:45 Lovenox - SQ Q12H JOSELUIS Finasteride 5 mg 05/07/17 10:00 05/07/17 10:34 Proscar - PO 5 mg DAILY JOSELUIS Administration Metoprolol Succinate 50 mg 05/06/17 17:00 05/07/17 10:34 Toprol Xl - PO 50 mg BID JOSELUIS Administration Rosuvastatin Calcium 10 mg 05/06/17 22:00 05/06/17 21:36 Crestor - PO 10 mg HS JOSELUIS Administration Valsartan 320 mg 05/07/17 10:00 05/07/17 10:33 Diovan - PO 320 mg DAILY JOSELUIS Administration ASSESSMENT/PLAN: 76M w/ PMH HTN, HLD, NIDDM, COPD, EYAD, AF who presented to ED with acute onset palpitations not associated with activity. Pt admitted for recurrence of Afib, acute onset. #elevated troponin -demand ischemia vs NSTEMI -EKG shows ST depressions. Possibly 2/2 fast HR vs ischemia -mgt by primary team and cardio -pt to go for cath #Afib mgt per cardio -hx of COPD & YEAD -pt has diagnosis of EYAD -No bronchodilators at this time as they might precipitate fast heart rate and pt has no shortness of breath at this time #Pulm -CXR left lung base scarring -CT chest (09/2015) enlarged lymph node -Hx COPD w/ extensive smoking history -continue current management for now Dispo: We will continue to follow the patient. Thank you for this consultative opportunity. Troy Pollack MD PGY-1 Visit type - Emergency Visit Emergency Visit: No - New Patient This patient is new to me today: No - Critical Care Critical Care patient: No - Discharge Referral Referred to [facility] Med P.C.: No
--- NOTE | 2017-05-07 11:07 | PN ---
Teaching Attending Note Name of Resident: Troy Pollack ATTENDING PHYSICIAN STATEMENT I saw and evaluated the patient. I reviewed the resident's note and discussed the case with the resident. I agree with the resident's findings and plan as documented. PULMONARY ALERT,NAD,-CP,-SOB IMP CP AFIB COPD EYAD PLAN HOLD ELIQUIS CARDIAC CATH INHALED BRONCHODILATORS CPAP RATE CONTROL DR ELLER Problem List - Problems (1) Atrial fibrillation Code(s): I48.91 - UNSPECIFIED ATRIAL FIBRILLATION Qualifiers: Atrial fibrillation type: unspecified Qualified Code(s): I48.91 - Unspecified atrial fibrillation (2) BPH (benign prostatic hyperplasia) Code(s): N40.0 - BENIGN PROSTATIC HYPERPLASIA WITHOUT LOWER URINRY TRACT SYMP (3) COPD (chronic obstructive pulmonary disease) Code(s): J44.9 - CHRONIC OBSTRUCTIVE PULMONARY DISEASE, UNSPECIFIED (4) Diabetes mellitus Code(s): E11.9 - TYPE 2 DIABETES MELLITUS WITHOUT COMPLICATIONS (5) EYAD (obstructive sleep apnea) Code(s): G47.33 - OBSTRUCTIVE SLEEP APNEA (ADULT) (PEDIATRIC)
[2017-05-07] MEDS: ENOXAPARIN NA (PORCINE) 100 MG/1 ML DISP.SYRIN SQ SCH ×2 (11:15→22:36)
--- NOTE | 2017-05-07 11:54 | PN ---
Progress Note (short form) - Note Progress Note: cc: afib with rvr s: no cp sob palps dizzy; still with rvr when walking. overnight trop became positive, no cp sxs. no cigs Current Medications Generic Name Dose Route Start Last Admin Trade Name Freq PRN Reason Stop Dose Admin Aclidinium [place] 1 puff 05/06/17 22:00 05/07/17 10:38 Tudorza - IH 1 inh BID JOSELUIS Administration Albuterol Sulfate 1 amp 05/06/17 18:10 Ventolin 0.083% Nebulizer Soln - NEB Q4H PRN SHORT OF BREATH/WHEEZING Chlorthalidone 25 mg 05/07/17 10:00 05/07/17 10:34 [place] - PO 25 mg DAILY JOSELUIS Administration Diltiazem HCl 120 mg 05/07/17 10:45 05/07/17 11:15 Cardizem Cd - PO 120 mg DAILY JOSELUIS Administration Enoxaparin Sodium 100 mg 05/07/17 10:45 05/07/17 11:15 Lovenox - SQ 100 mg BID JOSELUIS Administration Finasteride 5 mg 05/07/17 10:00 05/07/17 10:34 Proscar - PO 5 mg DAILY JOSELUIS Administration Metoprolol Succinate 50 mg 05/06/17 17:00 05/07/17 10:34 Toprol Xl - PO 50 mg BID JOSELUIS Administration Rosuvastatin Calcium 10 mg 05/06/17 22:00 05/06/17 21:36 Crestor - PO 10 mg HS JOSELUIS Administration Valsartan 320 mg 05/07/17 10:00 05/07/17 10:33 Diovan - PO 320 mg DAILY JOSELUIS Administration Vital Signs Temp 97.8 F 05/07/17 06:00 Pulse 121 H 05/07/17 06:00 Resp 20 05/07/17 06:00 BP 109/65 05/07/17 06:00 Pulse Ox 97 05/07/17 09:00 Intake & Output 05/06/17 05/06/17 05/07/17 11:59 23:59 11:59 Intake Total 240 Balance 240 Weight 220 lb 223 lb 6 oz Intake: Oral 240 Other: Voiding Method Toilet Toilet # Unmeasured Voids Void 2 3 Height 5 ft 8 in Body Mass Index (BMI) 33.9 Weight Measurement Method Standing Scale Standing Scale Weight Measurement Method Est/Stated by Patient Constitutional: Yes: Well Nourished, No Distress Eyes: No: Sclera Icterus HENT: No: Nasal Congestion Neck: No: Decreased ROM Respiratory: Yes: CTA Bilaterally. No: Accessory Muscle Use, Rales, Wheezes Gastrointestinal: Yes: Normal Bowel Sounds. No: Distention, Hepatomegaly, Palpable Mass, Tenderness Cardiovascular: Yes: Pulse Irregular JVD: No Carotid Bruit: No PMI: Non-Displaced Heart Sounds: Yes: S1, S2. No: Gallop Murmur: No: Systolic Murmur, Diastolic Murmur Extremities: No: Cool, Cyanosis Edema: No Integumentary: No: Jaundice diaphoresis Neurological: Yes: Alert, Oriented (x3) Psychiatric: No: Agitated - Other Data Labs, Other Data: Laboratory Last Values WBC 6.9 K/mm3 (4.0-10.0) 05/07/17 05:50 RBC 5.11 M/mm3 (4.00-5.60) 05/07/17 05:50 Hgb 15.5 GM/dL (11.7-16.9) 05/07/17 05:50 Hct 44.1 % (35.4-49) 05/07/17 05:50 MCV 86.3 fl (80-96) 05/07/17 05:50 MCH 30.3 pg (25.7-33.7) 05/07/17 05:50 MCHC 35.1 g/dl (32.0-35.9) 05/07/17 05:50 RDW 13.2 % (11.9-15.9) 05/07/17 05:50 Plt Count 181 K/MM3 (134-434) D 05/07/17 05:50 MPV 9.0 fl (7.5-11.1) 05/07/17 05:50 Neutrophils % 53.4 % (42.8-82.8) D 05/07/17 05:50 Lymphocytes % 33.8 % (8-40) D 05/07/17 05:50 Monocytes % 9.1 % (3.8-10.2) 05/07/17 05:50 Eosinophils % 3.0 % (0-4.5) 05/07/17 05:50 Basophils % 0.7 % (0-2.0) 05/07/17 05:50 INR 1.18 (0.82-1.09) H 05/06/17 12:43 PTT (Actin FS) 30.7 SECONDS (26.9-34.4) 05/06/17 12:43 Sodium 137 mmol/L (136-145) 05/07/17 05:50 Potassium 3.4 mmol/L (3.5-5.1) L 05/07/17 05:50 Chloride 95 mmol/L (98-107) L 05/07/17 05:50 Carbon Dioxide 33 mmol/L (21-32) H 05/07/17 05:50 Anion Gap 9 (8-16) 05/07/17 05:50 BUN 16 mg/dL (7-18) 05/07/17 05:50 Creatinine 0.9 mg/dL (0.7-1.3) 05/07/17 05:50 Creat Clearance w eGFR > 60 (>60) 05/07/17 05:50 Random Glucose 108 mg/dL (74-106) H D 05/07/17 05:50 Hemoglobin A1c % 6.3 % (4.8-6.0) H 05/06/17 12:41 Calcium 9.1 mg/dL (8.5-10.1) 05/07/17 05:50 Phosphorus 3.5 mg/dL (2.5-4.9) 05/07/17 05:50 Magnesium 1.9 mg/dL (1.8-2.4) D 05/07/17 05:50 Total Bilirubin 0.5 mg/dL (0.2-1.0) 05/07/17 05:50 AST 30 U/L (15-37) D 05/07/17 05:50 ALT 34 U/L (12-78) 05/07/17 05:50 Alkaline Phosphatase 62 U/L (45-117) 05/07/17 05:50 Creatine Kinase 536 IU/L (39-308) H 05/07/17 01:00 Creatine Kinase Index 2.0 % (0.0-5.0) 05/07/17 01:00 CK-MB (CK-2) 10.895 ng/mL (0.5-3.6) H 05/07/17 01:00 Troponin I 2.97 ng/ml (0.00-0.05) H* 05/07/17 01:00 B-Natriuretic Peptide 92.88 pg/ml (5-450) 05/06/17 12:43 Total Protein 7.0 g/dl (6.4-8.2) 05/07/17 05:50 Albumin 3.8 g/dl (3.4-5.0) 05/07/17 05:50 TSH 0.43 uIU/ml (0.358-3.74) 05/06/17 12:43 Coronary Calcium Score 01/20: 1074, 83rd %ile MIBI 02/20 (lexiscan): no STs, no isch; nl EF; mild LVE w/o TID Echo 01/20: TDS; nl LV/EF; nl RV; nl LA; mild /AI; nl LAP (no RVSP) CXR: clear lungs/pleura ECG: tachy with HR 152 = afib vs atypical flutter with variable A:V conduction ( based on R-R intervals, regular at times); normal axis. ischemic ST depressions V3-V6, I/II/avF tele: afib with rvr when walking a/p: positive trop: -mild trop elevation likely from demand ischemia due to RVR, not ACS -given his outpt high calcium score, st depressions on ecg with rvr, and mild trop elevation, will pursue cardiac cath to see if any high risk lesions are present -echo pending -cont rate control -cont bb, statin, ac -cath planned for later this week to allow eliquis to wear off, last dose was pm. Afib: -NEW DX, RAPID HR'S IN ER WITH TRANSIENT RESPONSE TO DOSES OF PO AND IV DILTIAZEM. -CHADS-VASC = 4, HENCE BENEFITS OF AC >> RISKS. CONT AC (was on eliquis but changed to lovenox now in anticipation for cath later this week) -unfortunately, his med s.e. history (including intolerable edema on diltiazem 240mg qd) and h/o chronic bronchitis with episodic wheezing, makes it fairly unlikely he will tolerate high doses of CCB or BB over the long-term. -cont toprol 50 bid, will now add diltiazem CD 120mg qd due to persistent rvr -may need dccv after cath if rate not controlled -cont tele Essential hypertension -stable on current meds COPD/Chronic bronchitis -IMPROVED ON CURRENT INHALER REGIMEN, PER DR ELLER Obstructive sleep apnea -COMPLIANT WITH CPAP; Pure hypercholesterolemia -PRIMARY PREVN; SUBCLINICAL ATHERO--COR CALCIUM SCORE HI (1074, 83RD %ILE) -CONTROLLED WITH CRESTOR 5MG QD AT HOME; CONT SAME (OR DOSE EQUIVALENT) HERE Type 2 diabetes mellitus without complication -RECENT NEW DX OF DM WITH A1C 6.7 -IMPROVED SIGNIFICANTLY WITH TLC'S--6.1 LAST.
[2017-05-07] MEDS ORDERED: POTASSIUM CHLORIDE TABS 20 MEQ TABLET.ER (FP) PO ONE (16:36)
--- NOTE | 2017-05-07 17:33 | PN ---
Teaching Attending Note Name of Resident: Francisco Javier Antonio ATTENDING PHYSICIAN STATEMENT I saw and evaluated the patient. I reviewed the resident's note and discussed the case with the resident. I agree with the resident's findings and plan as documented. SUBJECTIVE: Patient denies chest pain, SOB, palpitations. OBJECTIVE: Vital Signs Period Temp Pulse Resp BP Sys/Berumen Pulse Ox Last 24 Hr 97.4 F-98.1 F 77-121 17-20 106-139/57-89 96-99 HEART: Irregularly irregular, tachycardic LUNGS: Clear ABDOMEN: Obese, soft, non-tender, non-distended, normal BS EXTREMITIES: No edema Current Medications Generic Name Dose Route Start Last Admin Trade Name Freq PRN Reason Stop Dose Admin Aclidinium [place] 1 puff 05/06/17 22:00 05/07/17 10:38 Tudorza - IH 1 inh BID JOSELUIS Administration Albuterol Sulfate 1 amp 05/06/17 18:10 Ventolin 0.083% Nebulizer Soln - NEB Q4H PRN SHORT OF BREATH/WHEEZING Chlorthalidone 25 mg 05/07/17 10:00 05/07/17 10:34 [place] - PO 25 mg DAILY JOSELUIS Administration Diltiazem HCl 120 mg 05/07/17 10:45 05/07/17 11:15 Cardizem Cd - PO 120 mg DAILY JOSELUIS Administration Enoxaparin Sodium 100 mg 05/07/17 10:45 05/07/17 11:15 Lovenox - SQ 100 mg BID JOSELUIS Administration Finasteride 5 mg 05/07/17 10:00 05/07/17 10:34 Proscar - PO 5 mg DAILY JOSELUIS Administration Metoprolol Succinate 50 mg 05/06/17 17:00 05/07/17 10:34 Toprol Xl - PO 50 mg BID JOSELUIS Administration Rosuvastatin Calcium 10 mg 05/06/17 22:00 05/06/17 21:36 Crestor - PO 10 mg HS JOSELUIS Administration Valsartan 320 mg 05/07/17 10:00 05/07/17 10:33 Diovan - PO 320 mg DAILY JOSELUIS Administration ASSESSMENT AND PLAN: This is a 76-year-old man with a history of HTN, type 2 DM, COPD, EYAD, hyperlipidemia, BPH, gout who presented to the ER with palpitations and SOB. 1. Atrial fibrillation with RVR - Cardizem CD, Toprol XL started - Eliquis held for cardiac cath and Lovenox started - Echocardiogram shows normal LV, normal LVEF, moderate to severe MR, moderate TR, mild AR 2. Demand ischemia with troponin 3.0, ischemic changes on EKG - Continue Lovenox, Toprol XL, Crestor - Plan for cardiac cath tomorrow 3. HTN - Continue Cardizem CD, Toprol XL, Diovan, Chlorthalidone 4. Hyperlipidemia - Continue Crestor 5. Type 2 DM - Diet-controlled - HgbA1c 6.3 6. COPD - Stable - Continue Tudorza 7. EYAD - Uses CPAP at night 8. BPH - Continue Proscar 9. History of gout
--- NOTE | 2017-05-07 20:10 | PN ---
Physical Exam: SUBJECTIVE: Patient seen and examined at bedside. Patient has no new complaints. PVC's on monitor. Patient had elevated troponins overnight. Remains in a-fib. OBJECTIVE: Vital Signs Period Temp Pulse Resp BP Sys/Berumen Pulse Ox Last 24 Hr 97.4 F-97.9 F 77-121 18-20 106-139/57-81 96-97 GENERAL: The patient is awake, alert, and fully oriented, in no acute distress. HEAD: Normal with no signs of trauma. NECK: Trachea midline, full range of motion, supple. LUNGS: Breath sounds equal, clear to auscultation bilaterally, no wheezes, no crackles, no accessory muscle use. HEART: Tachycardic with irregular rhythm, S1, S2 heard without murmur, rub or gallop. ABDOMEN: Soft, nontender, nondistended, normoactive bowel sounds, no guarding, no rebound. EXTREMITIES: 2+ pulses, warm, well-perfused, no edema. NEUROLOGICAL: Cranial nerves II through X grossly intact. Normal speech, gait not observed. PSYCH: Normal mood, normal affect. SKIN: Warm, dry, normal turgor, no rashes or lesions noted Laboratory Results - last 24 hr 05/06/17 05/06/17 05/07/17 19:20 19:20 01:00 WBC RBC Hgb Hct MCV MCH MCHC RDW Plt Count MPV Neutrophils % Lymphocytes % Monocytes % Eosinophils % Basophils % Sodium Potassium Chloride Carbon Dioxide Anion Gap BUN Creatinine Creat Clearance w eGFR Random Glucose Calcium Phosphorus Magnesium Total Bilirubin AST ALT Alkaline Phosphatase Creatine Kinase 536 H Creatine Kinase Index 2.0 CK-MB (CK-2) 13.663 H 10.895 H Troponin I 3.01 H* D 2.97 H* Total Protein Albumin 05/07/17 05/07/17 05:50 05:50 WBC 6.9 RBC 5.11 Hgb 15.5 Hct 44.1 MCV 86.3 MCH 30.3 MCHC 35.1 RDW 13.2 Plt Count 181 D MPV 9.0 Neutrophils % 53.4 D Lymphocytes % 33.8 D Monocytes % 9.1 Eosinophils % 3.0 Basophils % 0.7 Sodium 137 Potassium 3.4 L Chloride 95 L Carbon Dioxide 33 H Anion Gap 9 BUN 16 Creatinine 0.9 Creat Clearance w eGFR > 60 Random Glucose 108 H D Calcium 9.1 Phosphorus 3.5 Magnesium 1.9 D Total Bilirubin 0.5 AST 30 D ALT 34 Alkaline Phosphatase 62 Creatine Kinase Creatine Kinase Index CK-MB (CK-2) Troponin I Total Protein 7.0 Albumin 3.8 Active Medications Generic Name Dose Route Start Last Admin Trade Name Freq PRN Reason Stop Dose Admin Aclidinium [place] 1 puff 05/06/17 22:00 05/07/17 10:38 Tudorza - IH 1 inh BID JOSELUIS Administration Albuterol Sulfate 1 amp 05/06/17 18:10 Ventolin 0.083% Nebulizer Soln - NEB Q4H PRN SHORT OF BREATH/WHEEZING Chlorthalidone 25 mg 05/07/17 10:00 05/07/17 10:34 [place] - PO 25 mg DAILY JOSELUIS Administration Diltiazem HCl 120 mg 05/07/17 10:45 05/07/17 11:15 Cardizem Cd - PO 120 mg DAILY JOSELUIS Administration Enoxaparin Sodium 100 mg 05/07/17 10:45 05/07/17 11:15 Lovenox - SQ 100 mg BID JOSELUIS Administration Finasteride 5 mg 05/07/17 10:00 05/07/17 10:34 Proscar - PO 5 mg DAILY JOSELUIS Administration Metoprolol Succinate 50 mg 05/06/17 17:00 05/07/17 10:34 Toprol Xl - PO 50 mg BID JOSELUIS Administration Rosuvastatin Calcium 10 mg 05/06/17 22:00 05/06/17 21:36 Crestor - PO 10 mg HS JOSELUIS Administration Valsartan 320 mg 05/07/17 10:00 05/07/17 10:33 Diovan - PO 320 mg DAILY JOSELUIS Administration ASSESSMENT/PLAN: 76 yo M w/ PMH DM, HTN, COPD, EYAD presents to the ED complaining of palpitations , lightheadedness. Patient admitted to telemetry for rate and rhythm control of afib w/ RVR. #Rapid a-fib with RVR -cardizem GTT d/c by cardiology -cardiology: Patient for transfer to [place] for cardiac cath in AM following positive tropes overnight -eliquis 5mg held today; switched to lovenox in anticipation of cath -toprolol xl 50 mg BID -cardizen 120mg PO daily -troponin 3.01 -> 2.97 -Echo shows 50% ejection fraction and moderate mitral regurg -CHADS VASC Score= 4 #Diabetes mellitus -HbA1c 6.5 -daily sugars -diabetic diet #COPD/EYAD -Patient on Breo and Ventolin PRN at home -Spiriva daily and Nebs PRN -pulmonology consulted; Dr. Schafer -patient's son to bring his home CPAP machine to hospital #HTN- controlled -chlorthalidone 25mg -valsartan 320mg -continue home medications #HLD -continue home crestor #BPH -continue home flomax FEN -no indication for fluids at this time -monitor lytes -diabetic diet prophy -on lovenox 100 SQ BID -no indication for Gi prophylaxsis Dispo -For transfer to [place] tomorrow for cardiac catheterization. Problem List - Problems (1) Atrial fibrillation Code(s): I48.91 - UNSPECIFIED ATRIAL FIBRILLATION Qualifiers: Atrial fibrillation type: unspecified Qualified Code(s): I48.91 - Unspecified atrial fibrillation (2) Dependent edema Code(s): R60.9 - EDEMA, UNSPECIFIED (3) Diabetes mellitus Code(s): E11.9 - TYPE 2 DIABETES MELLITUS WITHOUT COMPLICATIONS (4) COPD (chronic obstructive pulmonary disease) Code(s): J44.9 - CHRONIC OBSTRUCTIVE PULMONARY DISEASE, UNSPECIFIED (5) EYAD (obstructive sleep apnea) Code(s): G47.33 - OBSTRUCTIVE SLEEP APNEA (ADULT) (PEDIATRIC) (6) BPH (benign prostatic hyperplasia) Code(s): N40.0 - BENIGN PROSTATIC HYPERPLASIA WITHOUT LOWER URINRY TRACT SYMP (7) HLD (hyperlipidemia) Code(s): E78.5 - HYPERLIPIDEMIA, UNSPECIFIED Visit type - Emergency Visit Emergency Visit: Yes ED Registration Date: 05/06/17 Care time: The patient presented to the Emergency Department on the above date and was hospitalized for further evaluation of their emergent condition. - New Patient This patient is new to me today: No - Critical Care Critical Care patient: No
[2017-05-07] MEDS: ROSUVASTATIN CA 10 MG TABLET (FP) PO SCH (22:36)
[2017-05-08 08:10] LABS: MCH 30.2 pg (25.7-33.7); MCHC 34.7 g/dl (32.0-35.9); MEAN PLT VOLUME 8.6 fl (7.5-11.1); PLATELET COUNT 184 K/MM3 (134-434); RDW 13.2 % (11.9-15.9); WHITE BLOOD COUNT 6.7 K/mm3 (4.0-10.0)
[2017-05-08 08:55] LABS: ANION GAP 8 (8-16); CALCIUM 9.4 mg/dL (8.5-10.1); CO2 31 mmol/L (21-32); GLUCOSE,RANDOM 117 mg/dL (74-106)
[2017-05-08 09:12] LABS: CPK 301 IU/L (39-308); CREATININE 0.9 mg/dL (0.7-1.3)
[2017-05-08 09:29] LABS: TROPONIN I 0.85 ng/ml (0.00-0.05)
[2017-05-08] MEDS: ACLIDINIUM BROMIDE 400 MCG/INH AERO.POWD IH SCH (10:16)
[2017-05-08] MEDS: FINASTERIDE 5 MG TABLET (FP) PO SCH (10:18)
[2017-05-08] MEDS: VALSARTAN 160 MG TABLET (UD) PO SCH (10:18)
[2017-05-08] MEDS: METOPROLOL SUCCINATE 50 MG TAB.SR.24H (FP) PO SCH (10:18)
[2017-05-08] MEDS: ENOXAPARIN NA (PORCINE) 100 MG/1 ML DISP.SYRIN SQ SCH (10:19)
[2017-05-08] MEDS ORDERED: PT OWN MED DRAWER 7, Y5N ONE (10:23)
[2017-05-08] MEDS: CHLORTHALIDONE 25 MG TABLET PO SCH (10:26)
--- NOTE | 2017-05-08 10:33 | PN ---
Progress Note (short form) - Note Progress Note: cc: afib with rvr s: no cp sob palps dizzy; HR improved. no cigs Current Medications Generic Name Dose Route Start Last Admin Trade Name Freq PRN Reason Stop Dose Admin Aclidinium [place] 1 puff 05/06/17 22:00 05/08/17 10:16 Tudorza - IH 1 inh BID JOSELUIS Administration Albuterol Sulfate 1 amp 05/06/17 18:10 Ventolin 0.083% Nebulizer Soln - NEB Q4H PRN SHORT OF BREATH/WHEEZING Chlorthalidone 25 mg 05/07/17 10:00 05/08/17 10:26 [place] - PO 25 mg DAILY JOSELUIS Administration Diltiazem HCl 120 mg 05/07/17 10:45 05/08/17 10:20 Cardizem Cd - PO 120 mg DAILY JOSELUIS Administration Enoxaparin Sodium 100 mg 05/07/17 10:45 05/08/17 10:19 Lovenox - SQ 100 mg BID JOSELUIS Administration Finasteride 5 mg 05/07/17 10:00 05/08/17 10:18 Proscar - PO 5 mg DAILY JOSELUIS Administration Metoprolol Succinate 50 mg 05/06/17 17:00 05/08/17 10:18 Toprol Xl - PO 50 mg BID JOSELUIS Administration Rosuvastatin Calcium 10 mg 05/06/17 22:00 05/07/17 22:36 Crestor - PO 10 mg HS JOSELUIS Administration Valsartan 320 mg 05/07/17 10:00 05/08/17 10:18 Diovan - PO 320 mg DAILY JOSELUIS Administration Vital Signs Temp 97.8 F 05/07/17 21:00 Pulse 85 05/08/17 05:00 Resp 18 05/08/17 05:00 BP 118/63 05/08/17 05:00 Pulse Ox 97 05/07/17 21:00 Intake & Output 05/07/17 05/07/17 05/08/17 11:59 23:59 11:59 Intake Total 480 Balance 480 Weight 223 lb 6 oz 224 lb 6.4 oz Intake: Oral 480 Other: Voiding Method Toilet Toilet # Unmeasured Voids Void 3 2 1 Weight Measurement Method Standing Scale Standing Scale Constitutional: Yes: Well Nourished, No Distress Eyes: No: Sclera Icterus HENT: No: Nasal Congestion Neck: No: Decreased ROM Respiratory: Yes: CTA Bilaterally. No: Accessory Muscle Use, Rales, Wheezes Gastrointestinal: Yes: Normal Bowel Sounds. No: Distention, Hepatomegaly, Palpable Mass, Tenderness Cardiovascular: Yes: Pulse Irregular JVD: No Carotid Bruit: No PMI: Non-Displaced Heart Sounds: Yes: S1, S2. No: Gallop Murmur: No: Systolic Murmur, Diastolic Murmur Extremities: No: Cool, Cyanosis Edema: No Integumentary: No: Jaundice diaphoresis Neurological: Yes: Alert, Oriented (x3) Psychiatric: No: Agitated - Other Data Labs, Other Data: Laboratory Last Values WBC 6.7 K/mm3 (4.0-10.0) 05/08/17 06:10 RBC 5.11 M/mm3 (4.00-5.60) 05/08/17 06:10 Hgb 15.4 GM/dL (11.7-16.9) 05/08/17 06:10 Hct 44.5 % (35.4-49) 05/08/17 06:10 MCV 87.0 fl (80-96) 05/08/17 06:10 MCH 30.2 pg (25.7-33.7) 05/08/17 06:10 MCHC 34.7 g/dl (32.0-35.9) 05/08/17 06:10 RDW 13.2 % (11.9-15.9) 05/08/17 06:10 Plt Count 184 K/MM3 (134-434) 05/08/17 06:10 MPV 8.6 fl (7.5-11.1) 05/08/17 06:10 Neutrophils % 53.4 % (42.8-82.8) D 05/07/17 05:50 Lymphocytes % 33.8 % (8-40) D 05/07/17 05:50 Monocytes % 9.1 % (3.8-10.2) 05/07/17 05:50 Eosinophils % 3.0 % (0-4.5) 05/07/17 05:50 Basophils % 0.7 % (0-2.0) 05/07/17 05:50 INR 1.18 (0.82-1.09) H 05/06/17 12:43 PTT (Actin FS) 38.9 SECONDS (26.9-34.4) H 05/08/17 06:10 Sodium 135 mmol/L (136-145) L 05/08/17 06:10 Potassium 4.0 mmol/L (3.5-5.1) 05/08/17 06:10 Chloride 96 mmol/L (98-107) L 05/08/17 06:10 Carbon Dioxide 31 mmol/L (21-32) 05/08/17 06:10 Anion Gap 8 (8-16) 05/08/17 06:10 BUN 22 mg/dL (7-18) H D 05/08/17 06:10 Creatinine 0.9 mg/dL (0.7-1.3) 05/08/17 06:10 Creat Clearance w eGFR > 60 (>60) 05/07/17 05:50 Random Glucose 117 mg/dL (74-106) H 05/08/17 06:10 Hemoglobin A1c % 6.3 % (4.8-6.0) H 05/06/17 12:41 Calcium 9.4 mg/dL (8.5-10.1) 05/08/17 06:10 Phosphorus 3.5 mg/dL (2.5-4.9) 05/07/17 05:50 Magnesium 1.9 mg/dL (1.8-2.4) D 05/07/17 05:50 Total Bilirubin 0.5 mg/dL (0.2-1.0) 05/07/17 05:50 AST 30 U/L (15-37) D 05/07/17 05:50 ALT 34 U/L (12-78) 05/07/17 05:50 Alkaline Phosphatase 62 U/L (45-117) 05/07/17 05:50 Creatine Kinase 301 IU/L (39-308) 05/08/17 06:10 Creatine Kinase Index 2.0 % (0.0-5.0) 05/07/17 01:00 CK-MB (CK-2) 10.895 ng/mL (0.5-3.6) H 05/07/17 01:00 Troponin I 0.85 ng/ml (0.00-0.05) H* D 05/08/17 06:10 B-Natriuretic Peptide 92.88 pg/ml (5-450) 05/06/17 12:43 Total Protein 7.0 g/dl (6.4-8.2) 05/07/17 05:50 Albumin 3.8 g/dl (3.4-5.0) 05/07/17 05:50 TSH 0.43 uIU/ml (0.358-3.74) 05/06/17 12:43 Coronary Calcium Score 01/20: 1074, 83rd %ile MIBI 02/20 (lexiscan): no STs, no isch; nl EF; mild LVE w/o TID Echo 01/20: TDS; nl LV/EF; nl RV; nl LA; mild /AI; nl LAP (no RVSP) CXR: clear lungs/pleura ECG: tachy with HR 152 = afib vs atypical flutter with variable A:V conduction ( based on R-R intervals, regular at times); normal axis. ischemic ST depressions V3-V6, I/II/avF tele: afib, rate acceptable echo 04/2017: tds, nl lv, rv tds, mod-sev mr, mod tr, mild ar, nl rvsp, mild ao root dil a/p: positive trop: -mild trop elevation likely from demand ischemia due to RVR, not ACS -given his outpt high calcium score, st depressions on ecg with rvr, and mild trop elevation, will pursue cardiac cath to see if any high risk lesions are present -echo w/o WMAs -cont rate control -cont bb, statin, ac -cath planned for today/tomorrow to allow eliquis to wear off, last dose was pm. Afib: -NEW DX, RAPID HR'S IN ER WITH TRANSIENT RESPONSE TO DOSES OF PO AND IV DILTIAZEM. -CHADS-VASC = 4, HENCE BENEFITS OF AC >> RISKS. CONT AC (was on eliquis but changed to lovenox now in anticipation for cath this week) -unfortunately, his med s.e. history (including intolerable edema on diltiazem 240mg qd) and h/o chronic bronchitis with episodic wheezing, makes it fairly unlikely he will tolerate high doses of CCB or BB over the long-term. -on current toprol 50 bid and dilt 120 qd his HR is better controlled and he has no palps. Cont same for now. Could consider outpt dccv if became symptomatic or rate fast or couldn't tolerate meds. MR: -possibly seemed worse due to afib/rvr. No clinical chf. Can repeat echo as outpt to monitor. Essential hypertension -stable on current meds COPD/Chronic bronchitis -IMPROVED ON CURRENT INHALER REGIMEN, PER DR ELLER Obstructive sleep apnea -COMPLIANT WITH CPAP; Pure hypercholesterolemia -PRIMARY PREVN; SUBCLINICAL ATHERO--COR CALCIUM SCORE HI (1074, 83RD %ILE) -CONTROLLED WITH CRESTOR 5MG QD AT HOME; CONT SAME (OR DOSE EQUIVALENT) HERE Type 2 diabetes mellitus without complication -RECENT NEW DX OF DM WITH A1C 6.7 -IMPROVED SIGNIFICANTLY WITH TLC'S--6.1 LAST.
--- NOTE | 2017-05-08 11:29 | EKG ---
Test Reason : Blood Pressure : / mmHG Vent. Rate : 101 BPM Atrial Rate : 312 BPM P-R Int : 000 ms QRS Dur : 098 ms QT Int : 340 ms P-R-T Axes : 000 041 005 degrees QTc Int : 440 ms ATRIAL FIBRILLATION WITH RAPID VENTRICULAR RESPONSE WITH PREMATURE VENTRICULAR OR ABERRANTLY CONDUCTED COMPLEXES NONSPECIFIC ST ABNORMALITY ABNORMAL ECG WHEN COMPARED WITH ECG OF 06-MAY-2017 23:59, NO SIGNIFICANT CHANGE WAS FOUND Confirmed by AGSTON VERA, CHERYL ([id number]) on 05/08/2017 11:29:19 AM Referred By: MARTIN GRECO Confirmed By:CHERYL FELDMAN MD
--- NOTE | 2017-05-08 11:31 | EKG ---
Test Reason : Blood Pressure : / mmHG Vent. Rate : 082 BPM Atrial Rate : 277 BPM P-R Int : 000 ms QRS Dur : 090 ms QT Int : 370 ms P-R-T Axes : 000 026 017 degrees QTc Int : 432 ms ATRIAL FIBRILLATION ABNORMAL ECG WHEN COMPARED WITH ECG OF 06-MAY-2017 12:18, VENT. RATE HAS DECREASED BY 70 BPM QRS DURATION HAS DECREASED ST NO LONGER DEPRESSED IN INFERIOR LEADS ST NO LONGER DEPRESSED IN LATERAL LEADS NONSPECIFIC T WAVE ABNORMALITY NO LONGER EVIDENT IN LATERAL LEADS Confirmed by CHERYL FELDMAN MD ([id number]) on 05/08/2017 11:31:22 AM Referred By: Confirmed By:CHERYL FELDMAN MD
--- NOTE | 2017-05-08 13:05 | PN ---
Progress Note, Physician History of Present Illness: pulmonary alert,no distress,-sob,-cp - Current Medication List Current Medications: Active Medications Aclidinium Cameron (Tudorza -) 1 puff IH BID [facility] Last Admin: 05/08/17 10:16 Dose: 1 inh Albuterol Sulfate (Ventolin 0.083% Nebulizer Soln -) 1 amp NEB Q4H PRN PRN Reason: SHORT OF BREATH/WHEEZING Chlorthalidone (Hygroton -) 25 mg PO DAILY [facility] Last Admin: 05/08/17 10:26 Dose: 25 mg Diltiazem HCl (Cardizem Cd -) 120 mg PO DAILY [facility] Last Admin: 05/08/17 10:20 Dose: 120 mg Enoxaparin Sodium (Lovenox -) 100 mg SQ BID [facility] Last Admin: 05/08/17 10:19 Dose: 100 mg Finasteride (Proscar -) 5 mg PO DAILY [facility] Last Admin: 05/08/17 10:18 Dose: 5 mg Metoprolol Succinate (Toprol Xl -) 50 mg PO BID [facility] Last Admin: 05/08/17 10:18 Dose: 50 mg Rosuvastatin Calcium (Crestor -) 10 mg PO HS [facility] Last Admin: 05/07/17 22:36 Dose: 10 mg Valsartan (Diovan -) 320 mg PO DAILY [facility] Last Admin: 05/08/17 10:18 Dose: 320 mg - Objective Vital Signs: Vital Signs Temperature 97.8 F 05/07/17 21:00 Pulse Rate 85 05/08/17 05:00 Respiratory Rate 18 05/08/17 05:00 Blood Pressure 118/63 05/08/17 05:00 O2 Sat by Pulse Oximetry (%) 97 05/07/17 21:00 Constitutional: Yes: Well Nourished, Calm Eyes: Yes: WNL HENT: Yes: WNL Neck: Yes: WNL Cardiovascular: Yes: Pulse Irregular, S1, S2 Respiratory: Yes: CTA Bilaterally Gastrointestinal: Yes: Normal Bowel Sounds, Soft Extremities: Yes: WNL Edema: No Labs: CBC, BMP 05/08/17 06:10 05/08/17 06:10 INR, PTT INR 1.18 (0.82-1.09) H 05/06/17 12:43 Problem List - Problems (1) Atrial fibrillation Code(s): I48.91 - UNSPECIFIED ATRIAL FIBRILLATION Qualifiers: Atrial fibrillation type: unspecified Qualified Code(s): I48.91 - Unspecified atrial fibrillation (2) BPH (benign prostatic hyperplasia) Code(s): N40.0 - BENIGN PROSTATIC HYPERPLASIA WITHOUT LOWER URINRY TRACT SYMP (3) COPD (chronic obstructive pulmonary disease) Code(s): J44.9 - CHRONIC OBSTRUCTIVE PULMONARY DISEASE, UNSPECIFIED (4) Diabetes mellitus Code(s): E11.9 - TYPE 2 DIABETES MELLITUS WITHOUT COMPLICATIONS (5) EYAD (obstructive sleep apnea) Code(s): G47.33 - OBSTRUCTIVE SLEEP APNEA (ADULT) (PEDIATRIC) Assessment/Plan IMP CP AFIB COPD EYAD PLAN HOLD ELIQUIS CARDIAC CATH PER CARDIOLOGY INHALED BRONCHODILATORS CPAP RATE CONTROL DR ELLER Problem List - Problems (1) Atrial fibrillation Code(s): I48.91 - UNSPECIFIED ATRIAL FIBRILLATION Qualifiers: Atrial fibrillation type: unspecified Qualified Code(s): I48.91 - Unspecified atrial fibrillation (2) BPH (benign prostatic hyperplasia) Code(s): N40.0 - BENIGN PROSTATIC HYPERPLASIA WITHOUT LOWER URINRY TRACT SYMP (3) COPD (chronic obstructive pulmonary disease) Code(s): J44.9 - CHRONIC OBSTRUCTIVE PULMONARY DISEASE, UNSPECIFIED (4) Diabetes mellitus Code(s): E11.9 - TYPE 2 DIABETES MELLITUS WITHOUT COMPLICATIONS (5) EYAD (obstructive sleep apnea) Code(s): G47.33 - OBSTRUCTIVE SLEEP APNEA (ADULT) (PEDIATRIC)
--- NOTE | 2017-05-08 15:03 | PN ---
Teaching Attending Note Name of Resident: Francisco Javier Antonio ATTENDING PHYSICIAN STATEMENT I saw and evaluated the patient. I reviewed the resident's note and discussed the case with the resident. I agree with the resident's findings and plan as documented. SUBJECTIVE: No chest pain, SOB. OBJECTIVE: Vital Signs Period Temp Pulse Resp BP Sys/Berumen Pulse Ox Last 24 Hr 97.8 F-98.0 F 85-93 18-18 103-138/42-79 97 HEART: Irregularly irregular LUNGS: Clear ABDOMEN: Obese, soft, non-tender, non-distended, normal BS EXTREMITIES: No edema Current Medications Generic Name Dose Route Start Last Admin Trade Name Freq PRN Reason Stop Dose Admin Aclidinium [place] 1 puff 05/06/17 22:00 05/08/17 10:16 Tudorza - IH 1 inh BID JOSELUIS Administration Albuterol Sulfate 1 amp 05/06/17 18:10 Ventolin 0.083% Nebulizer Soln - NEB Q4H PRN SHORT OF BREATH/WHEEZING Chlorthalidone 25 mg 05/07/17 10:00 05/08/17 10:26 Hygroton - PO 25 mg DAILY JOSELUIS Administration Diltiazem HCl 120 mg 05/07/17 10:45 05/08/17 10:20 Cardizem Cd - PO 120 mg DAILY JOSELUIS Administration Enoxaparin Sodium 100 mg 05/07/17 10:45 05/08/17 10:19 Lovenox - SQ 100 mg BID JOSELUIS Administration Finasteride 5 mg 05/07/17 10:00 05/08/17 10:18 Proscar - PO 5 mg DAILY JOSELUIS Administration Metoprolol Succinate 50 mg 05/06/17 17:00 05/08/17 10:18 Toprol Xl - PO 50 mg BID JOSELUIS Administration Rosuvastatin Calcium 10 mg 05/06/17 22:00 05/07/17 22:36 Crestor - PO 10 mg HS JOSELUIS Administration Valsartan 320 mg 05/07/17 10:00 05/08/17 10:18 Diovan - PO 320 mg DAILY JOSELUIS Administration ASSESSMENT AND PLAN: This is a 76-year-old man with a history of HTN, type 2 DM, COPD, EYAD, hyperlipidemia, BPH, gout who presented to the ER with palpitations and SOB. 1. Atrial fibrillation with RVR - Rate controlled with Cardizem CD, Toprol XL - Continue Lovenox - Echocardiogram shows normal LV, normal LVEF, moderate to severe MR, moderate TR, mild AR 2. Demand ischemia with troponin 3.0, ischemic changes on EKG - Continue Lovenox, Toprol XL, Crestor - Plan for cardiac cath 3. HTN - Continue Cardizem CD, Toprol XL, Diovan, Chlorthalidone 4. Hyperlipidemia - Continue Crestor 5. Type 2 DM - Diet-controlled - HgbA1c 6.3 6. COPD - Stable - Continue Tudorza 7. EYAD - Uses CPAP at night 8. BPH - Continue Proscar 9. History of gout
[2017-05-08 15:12] VITALS: BP 137/89; PULSE 63; TEMP 98.1
--- NOTE | 2017-05-08 18:24 | DS ---
Physical Exam: SUBJECTIVE: Patient seen and examined. No new complaints. No events on the monitor. Patient is for transfer to [place] for cardiac cath. OBJECTIVE: Vital Signs Period Temp Pulse Resp BP Sys/Berumen Pulse Ox Last 24 Hr 97.8 F-98.1 F 63-93 18-18 106-138/42-89 97-98 PHYSICAL EXAM GENERAL: The patient is awake, alert, and fully oriented, in no acute distress. HEAD: Normal with no signs of trauma. NECK: Trachea midline, full range of motion, supple. LUNGS: Breath sounds equal, clear to auscultation bilaterally, no wheezes, no crackles, no accessory muscle use. HEART: Regular rate and rhythm, S1, S2 without murmur, rub or gallop. ABDOMEN: Soft, nontender, nondistended, normoactive bowel sounds, no guarding, no rebound. EXTREMITIES: 2+ pulses, warm, well-perfused, no edema. NEUROLOGICAL: Cranial nerves II through X grossly intact. Normal speech, gait not observed. PSYCH: Normal mood, normal affect. SKIN: Warm, dry, normal turgor, no rashes or lesions noted. LABS Laboratory Results - last 24 hr 05/08/17 05/08/17 05/08/17 06:10 06:10 06:10 WBC 6.7 RBC 5.11 Hgb 15.4 Hct 44.5 MCV 87.0 MCH 30.2 MCHC 34.7 RDW 13.2 Plt Count 184 MPV 8.6 PTT (Actin FS) 38.9 H Sodium 135 L Potassium 4.0 Chloride 96 L Carbon Dioxide 31 Anion Gap 8 BUN 22 H D Creatinine 0.9 Random Glucose 117 H Calcium 9.4 Creatine Kinase 301 Creatine Kinase Index 1.5 CK-MB (CK-2) 4.643 H Troponin I 0.85 H* D HOSPITAL COURSE: Date of Admission:05/06/17 The patient is a 76 yo m with a PMH DM (diet controlled), HTN, COPD who presents to the ED complaining of an episode of palpitations, shortness of breath and lightheadedness. In the ED, the patient was found to be in afib with RVR on the monitor which was later confirmed by ECG. The patient states that he had episodes of a-fib in the past, but never had any symptoms from it. The patient was admitted to telemetry and rate controlled with Cardizem and Metoprolol. The patient was also placed on anticoagulation with Eliquis. Dr. Butt with cardiology was consulted and Dr. Schafer with Pulmonology was consulted. The patient's hospital stay was complicated by a positive Troponin peaking at 3.01. Cardiology belived that this was secondary to demand ischemia vs CAD. They elected to have the patient transferred to [place] for cardiac catheterization and further treatment. Date of Discharge: 05/08/17 Minutes to complete discharge: 40 Discharge Summary Reason For Visit: ATRIAL FIBRILLATION Condition: Improved - Instructions Diet, Activity, Other Instructions: Patient has been transferred. Referrals: Rudy Herrera MD [Primary Care Provider] - Romario Butt MD [Staff Physician] - Beck Mendez MD [Staff Physician] - Disposition: TRANSFER ACUTE CARE/OTHER HOSP - Home Medications Comprehensive Discharge Medication List: Ambulatory Orders Rosuvastatin Calcium [Crestor] 5 mg PO DAILY 05/12/15 Chlorthalidone 25 mg PO DAILY 05/06/17 Clonidine HCl 0.1 mg PO Q7D 05/06/17 Colchicine 0.6 mg PO BID 05/06/17 Doxazosin Mesylate 8 mg PO DAILY 05/06/17 Finasteride 5 mg PO DAILY 05/06/17 Problem List - Problems (1) Atrial fibrillation Code(s): I48.91 - UNSPECIFIED ATRIAL FIBRILLATION Qualifiers: Atrial fibrillation type: unspecified Qualified Code(s): I48.91 - Unspecified atrial fibrillation (2) Dependent edema Code(s): R60.9 - EDEMA, UNSPECIFIED (3) Diabetes mellitus Code(s): E11.9 - TYPE 2 DIABETES MELLITUS WITHOUT COMPLICATIONS (4) COPD (chronic obstructive pulmonary disease) Code(s): J44.9 - CHRONIC OBSTRUCTIVE PULMONARY DISEASE, UNSPECIFIED (5) EYAD (obstructive sleep apnea) Code(s): G47.33 - OBSTRUCTIVE SLEEP APNEA (ADULT) (PEDIATRIC) (6) BPH (benign prostatic hyperplasia) Code(s): N40.0 - BENIGN PROSTATIC HYPERPLASIA WITHOUT LOWER URINRY TRACT SYMP (7) HLD (hyperlipidemia) Code(s): E78.5 - HYPERLIPIDEMIA, UNSPECIFIED This patient is new to me today: No Emergency Visit: Yes ED Registration Date: 05/06/17 Care time: The patient presented to the Emergency Department on the above date and was hospitalized for further evaluation of their emergent condition. Critical Care patient: No - Discharge Referral Referred to [facility] No
[2017-05-13] MEDS ORDERED: cloNIDine-TTS 0.1 MG/24 HRS PATCH.TDWK TD SCH (10:00)
== END 2017-05-08 17:12 | disposition short-term general hospital (02) | DRG 309 ==
LOC: JER 12:13 → JERBED 14:14 → J4W 18:54
PROVIDERS: ADMIT Internal Medicine; ATTEND Internal Medicine
DX: I48.91 Unspecified atrial fibrillation (principal); I24.8 Other forms of acute ischemic heart disease; E11.65 Type 2 diabetes mellitus with hyperglycemia; I10 Essential (primary) hypertension; J44.9 Chronic obstructive pulmonary disease, unspecified; E78.00 Pure hypercholesterolemia, unspecified; G47.33 Obstructive sleep apnea (adult) (pediatric); Z99.89 Dependence on other enabling machines and devices; Z87.891 Personal history of nicotine dependence; N40.0 Benign prostatic hyperplasia without lower urinary tract symptoms; E83.42 Hypomagnesemia; M10.9 Gout, unspecified
CPT/HCPCS: 36415; 70450-TC; 71010-TC; 80048; 80053; 82553; 83036; 83735; 83880; 84100; 84443; 84484; 85025; 85027; 85610; 85730; 93005; 93010; 93306-TC; 99285-25

== ENCOUNTER 2017-06-21 18:49 | Inpatient (IN) | payer OTHER, MEDICARE ==
--- NOTE | 2017-06-21 19:08 | PDOC ---
History of Present Illness - General History Source: Patient Exam Limitations: No Limitations <Bella Leon - Last Filed: 06/21/17 21:50> <Shahram Rothman - Last Filed: 06/22/17 01:45> - General Chief Complaint: Irregular Heart Beat Stated Complaint: PALPITATIONS Time Seen by Provider: 06/21/17 19:07 - History of Present Illness Initial Comments: 06/21/17 20:24 The patient is a 76 year old male living with his son, with significant history of hypertension, hyperlipidemia, diet controlled diabetes, COPD, sleep apnea, atrial fibrillation several years ago, who presents to the ED with palpitations that began today. Pt has a hx of irregular heartbeat and is followed by his Snaker Tractor Driver, Dr. Butt. He states that the palpitations came on today as he was sitting down watching TV. The palpitations were accompanied by shortness of breath, but he denies any experiencing any diaphoresis or lightheadedness. The pts son was not home at the time so the pt called an ambulance and was transported over to the ED for further evaluation. Pt reports that he is compliant with his all his medications. Pt received his nighttime dose of diltiazem while in the ambulance (takes 30 mg 3x a day). The patient denies any chest pain. He denies any fever, chills, nausea, vomiting , diarrhea, or abdominal pain. PCP: Dr. Herrera Snaker Tractor Driver: Dr. Butt Circulation Crew Leader: Dr. Schafer Social Hx: former cigarette smoker, drinks 1 glass of scotch a day but denies having any alcohol in the past couple of days. (Bella Leon) Past History <Bella Leon - Last Filed: 06/21/17 21:50> - Past Medical History Cardiac Disorders: Yes (atrial fibrillation) COPD: Yes Diabetes: Yes Disorders: Yes (prostatic hypertrophy) HTN: Yes Hypercholesterolemia: Yes - Suicide/Smoking/Psychosocial Hx Smoking History: Former smoker Have you smoked in the past 12 months: No If you are a former smoker, when did you quit?: MORE THAN 10 YEARS Information on smoking cessation initiated: No Hx Alcohol Use: No Drug/Substance Use Hx: No Substance Use Type: None <Shahram Rothman - Last Filed: 06/22/17 01:45> - Past Medical History Allergies/Adverse Reactions: Allergies Allergy/AdvReac Type Severity Reaction Status Date / Time No Known Allergies Allergy Verified 05/06/17 12:18 Home Medications: Ambulatory Orders Rosuvastatin Calcium [Crestor] 5 mg PO DAILY 05/12/15 Colchicine 0.6 mg PO BID 05/06/17 Doxazosin Mesylate 8 mg PO DAILY 05/06/17 Finasteride 5 mg PO DAILY 05/06/17 Albuterol Sulfate [Proair Respiclick] 90 mcg IH QID 06/21/17 Apixaban [Eliquis] 5 mg PO BID 06/21/17 Chlorthalidone 25 mg PO DAILY 06/21/17 Clonidine HCl [Clonidine HCl ER] 0.1 mg PO ASDIR 06/21/17 Diltiazem [Cardizem -] 30 mg PO TID 06/21/17 Fluticasone/Vilanterol [Breo Ellipta 100-25 Mcg INH] 1 each IH DAILY 06/21/17 Ipratropium/Albuterol Sulfate [Iprat-Albut 0.5-3(2.5) mg/3 ml] 3 ml IH DAILY Metoprolol Succinate [Toprol Xl] 50 mg PO BID 06/21/17 Olmesartan Medoxomil [Benicar (Nf)] 40 mg PO DAILY 06/21/17 Review of Systems - Review of Systems Able to Perform ROS?: Yes <Bella Leon - Last Filed: 06/21/17 21:50> <Shahram Rothman - Last Filed: 06/22/17 01:45> - Review of Systems Comments:: 06/21/17 20:26 CONSTITUTIONAL: No fever, no chills, no fatigue EYES: No visual changes ENT: No ear pain, no sore throat CARDIOVASCULAR: (+)palpitations. No chest pain. RESPIRATORY: (+)SOB. No cough. GI: No abdominal pain, no nausea, no vomiting, no constipation, no diarrhea GENITOURINARY: No dysuria, no frequency, no hematuria MUSKULOSKELETAL: No backpain, no joint pain, no myalgias SKIN: No rash NEURO: No headache (Bella Leon) *Physical Exam <Bella Leon - Last Filed: 06/21/17 21:50> <Shahram Rothman - Last Filed: 06/22/17 01:45> - Vital Signs Last Vital Signs Temp Pulse Resp BP Pulse Ox 97.6 F 82 16 128/72 95 06/21/17 18:58 06/21/17 23:26 06/21/17 18:58 06/21/17 23:26 06/21/17 18:58 - Physical Exam Comments: 06/21/17 20:28 CONSTITUTIONAL: Well-appearing; well-nourished; in no apparent distress. Obese. HEAD: Normocephalic; atraumatic EYES: PERRL; EOM intact ENMT: External appears normal; normal oropharynx NECK: Supple; non-tender; no cervical lymphadenopathy CARD: (+)Irregularly irregular. Normal S1, S2; no murmurs, rubs, or gallops RESP: Normal chest excursion with respiration; breath sounds clear and equal bilaterally; no wheezes, rhonchi, or rales ABD: Soft, non-distended; non-tender; no palpable organomegaly, no palpable hernias EXT: Normal ROM in all four extremities; non-tender to palpation; distal pulses intact SKIN: Warm, dry, no rash NEURO: No focal neurological deficiencies. (Bella Leon) ED Treatment Course - LABORATORY CBC & Chemistry Diagram: 06/21/17 19:35 06/21/17 19:35 <Bella Leon - Last Filed: 06/21/17 21:50> - LABORATORY CBC & Chemistry Diagram: 06/21/17 19:35 06/21/17 19:35 <Shahram Rothman - Last Filed: 06/22/17 01:45> - ADDITIONAL ORDERS Additional order review: Laboratory Results 06/22/17 06/21/17 06/21/17 00:36 19:35 19:35 PT with INR 14.40 H INR 1.27 H Sodium 141 Potassium 4.0 Chloride 101 Carbon Dioxide 34 H Anion Gap 6 L BUN 32 H D Creatinine 1.1 D Creat Clearance w eGFR > 60 Random Glucose 153 H D Calcium 9.0 Magnesium 2.0 Total Bilirubin 0.3 D AST 20 D ALT 31 Alkaline Phosphatase 56 Creatine Kinase 177 141 Troponin I 0.95 H* D 0.06 H D Total Protein 7.0 Albumin 3.7 06/21/17 19:35 RBC 4.61 MCV 88.6 MCHC 34.3 RDW 13.1 MPV 8.7 Neutrophils % 60.6 Lymphocytes % 27.6 Monocytes % 8.4 Eosinophils % 2.5 Basophils % 0.9 - RADIOLOGY Radiology Studies Ordered: Category Date Time Status CHEST X-RAY PORTABLE* [RAD] Stat Radiology 06/21/17 19:22 Taken - Medications Given in the ED: ED Medications Discontinued Medications Generic Name Dose Route Start Last Admin Trade Name Daphne PRN Reason Stop Dose Admin Aspirin 162 mg 06/22/17 01:36 06/22/17 01:44 Asa - PO 06/22/17 01:37 162 mg ONCE ONE Administration Diltiazem HCl 30 mg 06/21/17 19:29 06/21/17 19:38 Cardizem - PO 06/21/17 19:30 30 mg ONCE ONE Administration Sodium Chloride 500 mls @ 500 mls/hr 06/21/17 21:34 06/21/17 22:00 Normal Saline - IV 06/21/17 22:33 500 mls/hr ASDIR STA Administration Medical Decision Making <Bella Leon - Last Filed: 06/21/17 21:50> <Shahram Rothman - Last Filed: 06/22/17 01:45> - Medical Decision Making 06/21/17 21:50 Dr. Treviño was paged and notified via phone service. (Bella Leon) 06/21/17 22:12 Patient is well-appearing 76-year-old male with history of A. fib on aliquots, hypertension, diabetes who presented to the ER with palpitations likely related to atrial fibrillation with rapid ventricular response. Patient had received 20 were grams of IV Cardizem by EMS with resolution of palpitations and tachycardia. On initial evaluation, patient appears in no distress; heart rate is noted to vary between 90 and 105. EKG reveals atrial fibrillation with infrequent PVCs. No evidence of acute ischemia is noted. Chest x-ray reveals no evidence of infiltrate or effusion. Borderline cardiomegaly is noted. Will rule out LA with serial cardiac enzymes. Discussed the case with Dr. Treviño of cardiology. He agrees with the plan of discharge of serial cardiac enzymes show a downward trend. I do not suspect PE or ACS at this time. 06/22/17 01:36 Patient reassessed. Patient is resting comfortably. Patient's pain free. Heart rate is noted to be between 95 and 102. Second set of cardiac enzymes reveals increasing CPK 177 and troponin of 0.95 consistent with acute non-ST elevation myocardial infarction. We'll administer aspirin. We'll admit to telemetry with cardiology consultation. (Shahram Rothman) *DC/Admit/Observation/Transfer <Bella Leon - Last Filed: 06/21/17 21:50> - Discharge Dispostion Admit: Yes <Shahram Rothman - Last Filed: 06/22/17 01:45> Diagnosis at time of Disposition: Atrial fibrillation with rapid ventricular response Acute myocardial infarction Qualifiers: Myocardial infarction ST status: non-ST elevation myocardial infarction Qualified Code(s): I21.4 - Non-ST elevation (NSTEMI) myocardial infarction; I21.4 - Non-ST elevation (NSTEMI) myocardial infarction; I21.4 - Non-ST elevation (NSTEMI) myocardial infarction; I21.4 - Non-ST elevation (NSTEMI) myocardial infarction - Discharge Dispostion Condition at time of disposition: Fair - Attestations Physician Attestion: 06/21/17 22:12 The documentation was prepared by the scribe under my direct supervision. I have reviewed the documentation which correctly represents the findings, medical decision-making and critical action taken by me. (Shahram Rothman)
[2017-06-21] MEDS ORDERED: dilTIAZem HCL 30 MG TABLET (FP) PO ONE (19:29)
[2017-06-21] MEDS ORDERED: dilTIAZem HCL 30 MG TABLET (FP) ONE (19:33)
[2017-06-21 19:42] LABS: BASOPHIL 0.9 % (0-2.0); EOSINOPHIL 2.5 % (0-4.5); MCH 30.4 pg (25.7-33.7); MCHC 34.3 g/dl (32.0-35.9); MEAN CELL VOLUME 88.6 fl (80-96); MEAN PLT VOLUME 8.7 fl (7.5-11.1); NEUTROPHILS 60.6 % (42.8-82.8); PLATELET COUNT 169 K/MM3 (134-434); RDW 13.1 % (11.9-15.9); WHITE BLOOD COUNT 5.7 K/mm3 (4.0-10.0)
[2017-06-21 20:06] LABS: INR 1.27 (0.82-1.09); PROTHROMBIN TIME (PATIENT) 14.4 SEC (9.98-11.88)
[2017-06-21 20:16] LABS: ALBUMIN 3.7 g/dl (3.4-5.0); ANION GAP 6 (8-16); BILIRUBIN,TOTAL 0.3 mg/dL (0.2-1.0); CO2 34 mmol/L (21-32); CREATININE 1.1 mg/dL (0.7-1.3); GLUCOSE,RANDOM 153 mg/dL (74-106); SGOT/AST 20 U/L (15-37); SGPT/ALT 31 U/L (12-78)
[2017-06-21 20:19] LABS: ALK PHOS 56 U/L (45-117); CPK 141 IU/L (39-308); TROPONIN I 0.06 ng/ml (0.00-0.05)
[2017-06-21] MEDS ORDERED: SODIUM CHLORIDE 500 ML IV STA (21:34)
[2017-06-22 01:27] LABS: TROPONIN I 0.95 ng/ml (0.00-0.05)
[2017-06-22] MEDS ORDERED: ASPIRIN 81 MG CHEWABLE TABLETS PO ONE (01:36)
[2017-06-22] MEDS ORDERED: ASPIRIN 81 MG CHEWABLE TABLETS ONE (01:42)
[2017-06-22] MEDS ORDERED: PATIENT'S OWN MEDICATION (NON-FORMULARY) (Clonidine Hcl [Clonidine Hcl Er] 0.1 MG) PO SCH (03:00)
[2017-06-22] MEDS ORDERED: VALSARTAN 160 MG TABLET (UD) PO SCH (03:30)
[2017-06-22 03:33] VITALS: BMI 36.1
--- NOTE | 2017-06-22 03:47 | HP ---
CHIEF COMPLAINT: palpitations PCP: Dr Cardenas HISTORY OF PRESENT ILLNESS: The patient is a 76 yo m w/ PMH HTN, HLD, afib who comes into the ED c/o palpitations that began today. The patient states he was lying down at home watching TV when he began to feel a sudden onset of "his heart beating fast" as well as shortness of breath and a sense of anxiety. Upon feeling this, the patient called 911 and was brought to the ED for evaluation. Patient denies chest pain, nausea or vomiting. ER course was notable for: (1) troponin .6 -> .95 (2) (3) Recent Travel: none PAST MEDICAL HISTORY: COPD diet controlled DM sleep apnea PAST SURGICAL HISTORY: none Social History: Smoking: smoked 2ppd x 50 years, quit 10 years ago Alcohol: social drinker Drugs: denies Family History: Mother- in her 70's due to a heart attack Father- of bladder cancer Brother- in his late 50's due to cardiac issues; he had had a valve replacement Allergies No Known Allergies Allergy (Verified 05/06/17 12:18) HOME MEDICATIONS: Home Medications Medication Instructions Recorded Rosuvastatin Calcium [Crestor] 5 mg PO DAILY 05/12/15 Colchicine 0.6 mg PO BID 05/06/17 Doxazosin Mesylate 8 mg PO DAILY 05/06/17 Finasteride 5 mg PO DAILY 05/06/17 Albuterol Sulfate [Proair 90 mcg IH QID 06/21/17 Respiclick] Apixaban [Eliquis] 5 mg PO BID 06/21/17 Chlorthalidone 25 mg PO DAILY 06/21/17 Clonidine HCl [Clonidine HCl ER] 0.1 mg PO ASDIR 06/21/17 Diltiazem [Cardizem -] 30 mg PO TID 06/21/17 Fluticasone/Vilanterol [Breo 1 each IH DAILY 06/21/17 Ellipta 100-25 Mcg INH] Ipratropium/Albuterol Sulfate 3 ml IH DAILY 06/21/17 [Iprat-Albut 0.5-3(2.5) mg/3 ml] Metoprolol Succinate [Toprol Xl] 50 mg PO BID 06/21/17 Olmesartan Medoxomil [Benicar (Nf)] 40 mg PO DAILY 06/21/17 REVIEW OF SYSTEMS CONSTITUTIONAL: Absent: fever, chills, diaphoresis, generalized weakness, malaise, loss of appetite, weight change HEENT: Absent: rhinorrhea, nasal congestion, throat pain, throat swelling, difficulty swallowing, mouth swelling, ear pain, eye pain, visual changes CARDIOVASCULAR: Absent: chest pain, syncope, irregular heart rate, lightheadedness, peripheral edema RESPIRATORY: Absent: cough, dyspnea with exertion, orthopnea, wheezing, stridor, hemoptysis GASTROINTESTINAL: Absent: abdominal pain, abdominal distension, nausea, vomiting, diarrhea, constipation, melena, hematochezia GENITOURINARY: Absent: dysuria, frequency, urgency, hesitancy, hematuria, flank pain, genital pain MUSCULOSKELETAL: Absent: myalgia, arthralgia, joint swelling, back pain, neck pain SKIN: Absent: rash, itching, pallor HEMATOLOGIC/IMMUNOLOGIC: Absent: easy bleeding, easy bruising, lymphadenopathy, frequent infections ENDOCRINE: Absent: unexplained weight gain, unexplained weight loss, heat intolerance, cold intolerance NEUROLOGIC: Absent: headache, focal weakness or paresthesias, dizziness, unsteady gait, seizure, mental status changes, bladder or bowel incontinence PSYCHIATRIC: Absent: depression, suicidal or homicidal ideation, hallucinations. PHYSICAL EXAMINATION Vital Signs - 24 hr 06/22/17 06/22/17 02:36 03:02 Temperature 97.5 F L Pulse Rate 91 H Pulse Rate [ 99 H Apical] Respiratory 19 19 Rate Blood Pressure 123/72 Blood Pressure 143/86 [Right Arm] O2 Sat by Pulse 94 L 96 Oximetry (%) GENERAL: Awake, alert, and fully oriented, in no acute distress. HEAD: Normal with no signs of trauma. EYES: extraocular movements intact, sclera anicteric, conjunctiva clear. No lid lag. NECK: Normal range of motion, supple without lymphadenopathy, JVD, or masses. LUNGS: Breath sounds equal, clear to auscultation bilaterally. No wheezes, and no crackles. No accessory muscle use. HEART: irregularly irregular, normal S1 and S2 without murmur, rub or gallop. ABDOMEN: Soft, nontender, not distended, normoactive bowel sounds, no guarding, no rebound, no masses. UPPER EXTREMITIES: 2+ pulses, warm, well-perfused. No cyanosis. No clubbing. No peripheral edema. LOWER EXTREMITIES: 2+ pulses, warm, well-perfused. No calf tenderness. No peripheral edema. NEUROLOGICAL: Cranial nerves II-X intact. Normal speech. gait observed. PSYCHIATRIC: Cooperative. Good eye contact. Appropriate mood and affect. SKIN: Warm, dry, normal turgor, no rashes or lesions noted, normal capillary refill. ASSESSMENT/PLAN: The patient is a 76 yo m w/ PMH afib, HTN, HLD who comes into the ED c/o palpitations. Found to have elevated troponins in the ED and was admitted for NSTEMI. #NSTEMI -cardiology aware, will see the patient in the AM -c/w home eliquis -c/w home toprolol -c/w home cardizem -load patient w/ 180mg brillina, then 90mg daily -ASA 325mg -TSH -utox -echo -rpt EKG in AM -f/u cardio recs -trend tropes #HTN -c/w home toprolol, cardizem #Diabetes mellitus -monitor sugar through BMPs -in add BGM/ISS if remains uncontrolled #COPD/EYAD -Patient on Breo and Ventolin PRN at home -Spiriva daily #HLD -continue home crestor #BPH -continue home flomax #FEN -no fluids indicated -monitor lytes -diabetic diet #prophylaxsis -SCDs -no gi prophy indicated #dispo -admitted to tele for NSTEMI Visit type - Emergency Visit Emergency Visit: Yes ED Registration Date: 06/22/17 Care time: The patient presented to the Emergency Department on the above date and was hospitalized for further evaluation of their emergent condition. - New Patient This patient is new to me today: Yes Date on this admission: 06/22/17 - Critical Care Critical Care patient: No
--- NOTE | 2017-06-22 05:57 | PN ---
Teaching Attending Note Name of Resident: Francisco Javier Antonio ATTENDING PHYSICIAN STATEMENT I saw and evaluated the patient. Chart, data, and imaging reviewed. I reviewed the resident's note and discussed the case with the resident. I agree with the resident's findings and plan as documented with modifications below. SUBJECTIVE: 76 year old male living with his son, with significant history of hypertension, hyperlipidemia, diet controlled diabetes, COPD, sleep apnea, atrial fibrillation several years ago, presented to the ED c/o palpitations which started last night when he was watching TV. Palpitations were associated with shortness of breath but patient denied any chest pain. PCP: Dr. Herrera Registered Sales Assistant: Dr. Butt Chip Silo Tender: Dr. Schafer OBJECTIVE: Last Vital Signs Temp Pulse Resp BP Pulse Ox 97.7 F 88 18 148/75 96 06/22/17 05:31 06/22/17 05:31 06/22/17 05:31 06/22/17 05:31 06/22/17 03:02 General -appears comfortable, NAD, nontoxic HEENT - no sinus tenderness, moist oral mucosa Neck -supple, no masses CV -s1+s2+ irregularly irregular rhythm, no murmurs Chest - CTA b/l Abdomen- soft, nt, BS+ ext - no pedal edema skin - no rashes Abnormal Lab Results 06/21/17 06/21/17 06/22/17 19:35 19:35 00:36 PT with INR 14.40 H INR 1.27 H Carbon Dioxide 34 H Anion Gap 6 L BUN 32 H D Random Glucose 153 H D Creatine Kinase Index 6.3 H* CK-MB (CK-2) 11.158 H Troponin I 0.06 H D 0.95 H* D EKG - Afib w/ PVCs. Normal rate. CXR- wnl ASSESSMENT AND PLAN: #NSTEMI vs troponin leak 2/2 arrthymia (most likely A fib w/ RVR). Troponin has increased from 0.06 to 0.95. EKG showing afib with/ PVCs. -Admit to telemetry -trend troponin -repeat EKG -transthoracic echo -TSH -cardiology consult -load with ASA 324mg stat and then 81mg daily -load with ticagrelor 180 mg stat and then 90mg daily -already on anticoagulation with apixaban 5mg bid -restart diltiazem for rate control restart medications for other chronic medical problems (please refer to resident note for details) #Diet -2g Na, low fat diet #DVT ppx -on Eliquis
[2017-06-22] MEDS ORDERED: TICAGRELOR 90 MG TABLET PO ONE ×2 (06:00→06:15)
[2017-06-22] MEDS ORDERED: dilTIAZem HCL 30 MG TABLET (FP) PO SCH (06:00)
[2017-06-22 07:39] LABS: BASOPHIL 0.9 % (0-2.0); EOSINOPHIL 3.4 % (0-4.5); MCHC 34.2 g/dl (32.0-35.9); MEAN CELL VOLUME 87.6 fl (80-96); MEAN PLT VOLUME 8.3 fl (7.5-11.1); NEUTROPHILS 55.3 % (42.8-82.8); PLATELET COUNT 154 K/MM3 (134-434); RDW 13.6 % (11.9-15.9); WHITE BLOOD COUNT 5.2 K/mm3 (4.0-10.0)
[2017-06-22 07:58] LABS: ALBUMIN 3.4 g/dl (3.4-5.0); ANION GAP 8 (8-16); CO2 31 mmol/L (21-32); GLUCOSE,RANDOM 134 mg/dL (74-106); MAGNESIUM 1.9 mg/dL (1.8-2.4); PHOSPHOROUS 2.8 mg/dL (2.5-4.9); SGOT/AST 25 U/L (15-37); SGPT/ALT 29 U/L (12-78)
[2017-06-22 08:00] LABS: ALK PHOS 52 U/L (45-117); BILIRUBIN,TOTAL 0.6 mg/dL (0.2-1.0); CREATININE 0.8 mg/dL (0.7-1.3); TOT PROT 6.6 g/dl (6.4-8.2)
[2017-06-22 08:43] LABS: THYROID STIMULATING HORMONE 0.89 uIU/ml (0.358-3.74)
[2017-06-22 08:50] LABS: TROPONIN I 1.55 ng/ml (0.00-0.05)
[2017-06-22] MEDS ORDERED: PT OWN MED DRAWER 7, Y5N ONE ×2 (09:39→13:50)
[2017-06-22] MEDS: ROSUVASTATIN CA 10 MG TABLET (FP) PO SCH (09:41)
[2017-06-22] MEDS: VALSARTAN 160 MG TABLET (UD) PO SCH (09:41)
[2017-06-22] MEDS: COLCHICINE 0.6 MG TABLET (FP) PO SCH ×2 (09:41→21:25)
[2017-06-22] MEDS: CHLORTHALIDONE 25 MG TABLET PO SCH (09:42)
[2017-06-22] MEDS: FINASTERIDE 5 MG TABLET (FP) PO SCH (09:42)
[2017-06-22] MEDS: APIXABAN 5 MG TABLET PO SCH ×2 (09:42→21:25)
--- NOTE | 2017-06-22 09:59 | CON.CARD ---
Cardiology Consult (text) - Consultation Consultation Note: Consult Consult Specialty:: cardio Referred by:: ER Reason for Consultation:: Afib - History of Present Illness Chief Complaint: palpitations History of Present Illness: 76 yo male presented to ER due to palpitations. Pt has hx afib diagnosed 04/2017 when presented similarly with palps and rvr. Was rate controlled then and discharged and went back into sr on own then. While outpt has had recurrence of afib with rvr and meds have been titrated up. Was on dilt 30 tid and toprol 50 bid but then yesterday was sitting watching tv and started having palps (heart racing). He called ems and was in afib with rvr and brought to ER. Given iv dilt and hr improved and palps resolved. No cp , sob, dizzy, loc, pnd, orthopnea, le edema. Now he has no palps at rest but when he walks his hr increases to 120s-130s and he has palps. Sees dr lara for cardio. PMH: CAD (no pci) HTN HPL COPD BPH gout DM--diagnosed 2016, controlled with diet only - Alcohol/Substance Use Hx Alcohol Use: No - Smoking History Have you smoked in the past 12 months: No If you are a former smoker, when did you quit?: MORE THAN 10 YEARS Home Medications - Allergies Allergies/Adverse Reactions: Allergies Allergy/AdvReac Type Severity Reaction Status Date / Time No Known Allergies Allergy Verified 05/06/17 12:18 - Home Medications Home Medications: Ambulatory Orders Home Medications Medication Instructions Recorded Rosuvastatin Calcium [Crestor] 5 mg PO DAILY 05/12/15 Colchicine 0.6 mg PO BID 05/06/17 Doxazosin Mesylate 8 mg PO DAILY 05/06/17 Finasteride 5 mg PO DAILY 05/06/17 Albuterol Sulfate [Proair 90 mcg IH QID 06/21/17 Respiclick] Apixaban [Eliquis] 5 mg PO BID 06/21/17 Chlorthalidone 25 mg PO DAILY 06/21/17 Clonidine HCl [Clonidine HCl ER] 0.1 mg PO ASDIR 06/21/17 Diltiazem [Cardizem -] 30 mg PO TID 06/21/17 Fluticasone/Vilanterol [Breo 1 each IH DAILY 06/21/17 Ellipta 100-25 Mcg INH] Ipratropium/Albuterol Sulfate 3 ml IH DAILY 06/21/17 [Iprat-Albut 0.5-3(2.5) mg/3 ml] Metoprolol Succinate [Toprol Xl] 50 mg PO BID 06/21/17 Olmesartan Medoxomil [Benicar (Nf)] 40 mg PO DAILY 06/21/17 Family Disease History - Family Disease History Family History: Denies (no cmp) Review of Systems - Review of Systems Constitutional: denies: Chills, Fever Eyes: denies: Eye Pain HENT: denies: Nasal Congestion Neck: denies: Stiffness Cardiovascular: denies: Edema Respiratory: denies: Orthopnea, PND Gastrointestinal: denies: Diarrhea, Rectal Bleeding Genitourinary: denies: Burning, Hematuria Musculoskeletal: denies: Muscle Pain Integumentary: denies: Rash Neurological: denies: Seizure, Syncope Endocrine: denies: Excessive Sweating Hematology/Lymphatic: denies: Excessive Bleeding Vital Signs: Vital Signs Period Temp Pulse Resp BP Sys/Berumen Pulse Ox Last 24 Hr 97.5 F-97.7 F 82-102 16-20 121-148/67-86 94-96 Constitutional: Yes: Well Nourished, No Distress Eyes: No: Sclera Icterus HENT: No: Nasal Congestion Neck: No: Decreased ROM Respiratory: Yes: CTA Bilaterally. No: Accessory Muscle Use, Rales, Wheezes Gastrointestinal: Yes: Normal Bowel Sounds. No: Distention, Hepatomegaly, Palpable Mass, Tenderness Cardiovascular: Yes: Pulse Irregular JVD: No Carotid Bruit: No PMI: Non-Displaced Heart Sounds: Yes: S1, S2. No: Gallop Murmur: No: Systolic Murmur, Diastolic Murmur Musculoskeletal: Yes: Other (No kyphosis) Extremities: No: Cool, Cyanosis Edema: No Peripheral Pulses: 2+ Left Carotid, 2+ Right Carotid, 2+ Left Doralis Pedis, 2+ Right Dorsalis Pedis Integumentary: No: Jaundice Neurological: Yes: Alert, Oriented (x3) Psychiatric: No: Agitated - Other Data Labs, Other Data: Laboratory Last Values WBC 5.2 K/mm3 (4.0-10.0) 06/22/17 06:40 RBC 4.74 M/mm3 (4.00-5.60) 06/22/17 06:40 Hgb 14.2 GM/dL (11.7-16.9) 06/22/17 06:40 Hct 41.5 % (35.4-49) 06/22/17 06:40 MCV 87.6 fl (80-96) 06/22/17 06:40 MCH 30.0 pg (25.7-33.7) 06/22/17 06:40 MCHC 34.2 g/dl (32.0-35.9) 06/22/17 06:40 RDW 13.6 % (11.9-15.9) 06/22/17 06:40 Plt Count 154 K/MM3 (134-434) 06/22/17 06:40 MPV 8.3 fl (7.5-11.1) 06/22/17 06:40 Neutrophils % 55.3 % (42.8-82.8) 06/22/17 06:40 Lymphocytes % 31.7 % (8-40) 06/22/17 06:40 Monocytes % 8.7 % (3.8-10.2) 06/22/17 06:40 Eosinophils % 3.4 % (0-4.5) 06/22/17 06:40 Basophils % 0.9 % (0-2.0) 06/22/17 06:40 PT with INR 14.40 SEC (9.98-11.88) H 06/21/17 19:35 INR 1.27 (0.82-1.09) H 06/21/17 19:35 Sodium 140 mmol/L (136-145) 06/22/17 06:40 Potassium 3.7 mmol/L (3.5-5.1) 06/22/17 06:40 Chloride 101 mmol/L (98-107) 06/22/17 06:40 Carbon Dioxide 31 mmol/L (21-32) 06/22/17 06:40 Anion Gap 8 (8-16) 06/22/17 06:40 BUN 25 mg/dL (7-18) H D 06/22/17 06:40 Creatinine 0.8 mg/dL (0.7-1.3) D 06/22/17 06:40 Creat Clearance w eGFR > 60 (>60) 06/22/17 06:40 Random Glucose 134 mg/dL (74-106) H 06/22/17 06:40 Calcium 9.0 mg/dL (8.5-10.1) 06/22/17 06:40 Phosphorus 2.8 mg/dL (2.5-4.9) 06/22/17 06:40 Magnesium 1.9 mg/dL (1.8-2.4) 06/22/17 06:40 Total Bilirubin 0.6 mg/dL (0.2-1.0) D 06/22/17 06:40 AST 25 U/L (15-37) D 06/22/17 06:40 ALT 29 U/L (12-78) 06/22/17 06:40 Alkaline Phosphatase 52 U/L (45-117) 06/22/17 06:40 Creatine Kinase 183 IU/L (39-308) 06/22/17 06:40 Creatine Kinase Index 6.3 % (0.0-5.0) H* 06/22/17 00:36 CK-MB (CK-2) 11.158 ng/mL (0.5-3.6) H 06/22/17 00:36 Troponin I 1.55 ng/ml (0.00-0.05) H* D 06/22/17 06:40 Total Protein 6.6 g/dl (6.4-8.2) 06/22/17 06:40 Albumin 3.4 g/dl (3.4-5.0) 06/22/17 06:40 TSH 0.89 uIU/ml (0.358-3.74) D 06/22/17 06:40 MIBI 02/20 (lexiscan): no STs, no isch; nl EF; mild LVE w/o TID Echo 01/20: TDS; nl LV/EF; nl RV; nl LA; mild /AI; nl LAP (no RVSP) echo 04/2017: tds; nl lv, rv tds, mod-sev mr, mod tr, nl rvsp, mild ar, mild ao root dil CXR: clear lungs ecg 06/22/17: afib, vr 90s, pvc/aberrancy, no ischemic changes a/p: positive trop, hx cad: -mild trop elevation with nl ck, most likely from demand ischemia due to RVR, not ACS. Continue to trend ce's for now. -had similar presentation 04/2017 with similarly elevated trops. Was attributed to demand ischemia then. 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 -for now will cont to improve rate control -cont bb, arb, statin, ac -check echo for wma's pAfib: -Pt has hx pafib diagnosed 04/2017 when presented similarly with palps and rvr. Was rate controlled then and discharged and went back into sr on own then. While outpt has had recurrence of afib with rvr and meds have been titrated up. Was on dilt 30 tid and toprol 50 bid but again had afib with rvr leading to this admit. -currently hr controlled at rest but elevated with minimal activity so will cont dilt 30 tid (unable to tolerate higher due to le edema) but will increase toprol from 50 bid to 75 bid. Cont to monitor hr on tele. Next step would be to increase toprol to 100 bid if tolerates (no wheezing) or add digoxin. -CHADS-VASC = 4, HENCE BENEFITS OF AC >> RISKS. CONT AC with eliquis. MR: -possibly seemed worse due to afib/rvr at time of echo. No clinical chf. Can repeat echo when HR improved to monitor. Essential hypertension -cont home meds COPD/Chronic bronchitis -IMPROVED ON CURRENT INHALER REGIMEN, PER DR ELLER Obstructive sleep apnea -COMPLIANT WITH CPAP Pure hypercholesterolemia -cont statin
[2017-06-22] MEDS ORDERED: PATIENT'S OWN MEDICATION (NON-FORMULARY) (Albuterol Sulfate [Proair Respiclick] 90 MCG) IH SCH (10:00)
[2017-06-22] MEDS ORDERED: METOPROLOL SUCCINATE 50 MG TAB.SR.24H (FP) PO SCH ×2 (10:00→22:00)
[2017-06-22] MEDS ORDERED: DOXAZOSIN MESYLATE 8 MG TABLET PO SCH (10:00)
[2017-06-22] MEDS ORDERED: ASPIRIN 325 MG TABLET PO SCH (10:00)
[2017-06-22] MEDS ORDERED: cloNIDine-TTS 0.1 MG/24 HRS PATCH.TDWK TD SCH ×2 (10:00→16:15)
[2017-06-22] MEDS: ALBUTEROL SO4 2.5/IPRATROPIUM 0.5 INH SOL 3 ML VIAL.NEB. NEB SCH (10:55)
--- NOTE | 2017-06-22 11:01 | EKG ---
Test Reason : Blood Pressure : / mmHG Vent. Rate : 091 BPM Atrial Rate : 115 BPM P-R Int : 000 ms QRS Dur : 094 ms QT Int : 350 ms P-R-T Axes : 000 039 -05 degrees QTc Int : 430 ms ATRIAL FIBRILLATION WITH PREMATURE VENTRICULAR OR ABERRANTLY CONDUCTED COMPLEXES NONSPECIFIC ST ABNORMALITY ABNORMAL ECG WHEN COMPARED WITH ECG OF 21-JUN-2017 18:56, T WAVE INVERSION NO LONGER EVIDENT IN INFERIOR LEADS Confirmed by DENZEL FISCHER MD ([id number]) on 06/22/2017 11:01:10 AM Referred By: Confirmed By:DENZEL FISCHER MD
--- NOTE | 2017-06-22 11:04 | EKG ---
Test Reason : Blood Pressure : / mmHG Vent. Rate : 098 BPM Atrial Rate : 093 BPM P-R Int : 000 ms QRS Dur : 092 ms QT Int : 338 ms P-R-T Axes : 000 039 -34 degrees QTc Int : 431 ms ATRIAL FIBRILLATION WITH PREMATURE VENTRICULAR OR ABERRANTLY CONDUCTED COMPLEXES CANNOT RULE OUT INFERIOR INFARCT , AGE UNDETERMINED ABNORMAL ECG WHEN COMPARED WITH ECG OF 07-MAY-2017 09:30, ST NOW DEPRESSED IN ANTEROLATERAL LEADS T WAVE INVERSION NOW EVIDENT IN INFERIOR LEADS Confirmed by DENZEL FISCHER MD ([id number]) on 06/22/2017 11:04:04 AM Referred By: Confirmed By:DENZEL FISCHER MD
--- NOTE | 2017-06-22 12:42 | PN ---
Physical Exam: SUBJECTIVE: Patient seen and examined. He denies chest pain. He has palpitations while ambulating when his HR is noted to increase. OBJECTIVE: Vital Signs Period Temp Pulse Resp BP Sys/Berumen Pulse Ox Last 24 Hr 97.5 F-98.3 F 88-105 18-20 123-148/67-86 94-97 GENERAL: The patient is awake, alert, and fully oriented, in no acute distress. LUNGS: Breath sounds equal, clear to auscultation bilaterally, no wheezes, no crackles, no accessory muscle use. HEART: Irregularly irregular. ABDOMEN: Obese, soft, nontender, nondistended, normoactive bowel sounds, no guarding, no rebound, no hepatosplenomegaly, no masses. EXTREMITIES: 2+ pulses, warm, well-perfused, no edema. Laboratory Results - last 24 hr 06/22/17 06/22/17 06/22/17 06:40 06:40 06:40 WBC 5.2 RBC 4.74 Hgb 14.2 Hct 41.5 MCV 87.6 MCH 30.0 MCHC 34.2 RDW 13.6 Plt Count 154 MPV 8.3 Neutrophils % 55.3 Lymphocytes % 31.7 Monocytes % 8.7 Eosinophils % 3.4 Basophils % 0.9 Sodium 140 Potassium 3.7 Chloride 101 Carbon Dioxide 31 Anion Gap 8 BUN 25 H D Creatinine 0.8 D Creat Clearance w eGFR > 60 Random Glucose 134 H Calcium 9.0 Phosphorus 2.8 Magnesium 1.9 Total Bilirubin 0.6 D AST 25 D ALT 29 Alkaline Phosphatase 52 Creatine Kinase 183 Creatine Kinase Index 7.2 H* CK-MB (CK-2) 13.185 H Troponin I 1.55 H* D Total Protein 6.6 Albumin 3.4 TSH 0.89 D Active Medications Generic Name Dose Route Start Last Admin Trade Name Freq PRN Reason Stop Dose Admin Albuterol/Ipratropium 1 amp 06/22/17 10:00 06/22/17 10:55 Duoneb - NEB 1 amp DAILY JOSELUIS Administration Apixaban 5 mg 06/22/17 10:00 06/22/17 09:42 Eliquis - PO 5 mg BID JOSELUIS Administration Chlorthalidone 25 mg 06/22/17 10:00 06/22/17 09:42 Hygroton - PO 25 mg DAILY JOSELUIS Administration Clonidine HCl 0.1 mg 06/22/17 10:00 Catapres Tts Patch - TD Q7D@1000 [facility] Colchicine 0.6 mg 06/22/17 10:00 06/22/17 09:41 Colcrys - PO 0.6 mg BID JOSELUIS Administration Diltiazem HCl 30 mg 06/22/17 06:00 06/22/17 05:30 Cardizem - PO 30 mg TID JOSELUIS Administration Doxazosin Mesylate 8 mg 06/22/17 10:00 Cardura - PO DAILY [facility] Finasteride 5 mg 06/22/17 10:00 06/22/17 09:42 Proscar - PO 5 mg DAILY JOSELUIS Administration Metoprolol Succinate 25 mg 06/22/17 09:57 Toprol Xl - PO 06/22/17 09:58 ONCE ONE Metoprolol Succinate 75 mg 06/22/17 22:00 Toprol Xl - PO BID [facility] Non-Formulary Medication 1 each 06/22/17 10:00 Fluticasone/Vilanterol [Breo Ellipta 100-25 Mcg Inh] IH DAILY [facility] Non-Formulary Medication 90 mcg 06/22/17 10:00 Albuterol Sulfate [Proair Respiclick] IH QID JOSELUIS Rosuvastatin Calcium 5 mg 06/22/17 10:00 06/22/17 09:41 Crestor - PO 5 mg DAILY JOSELUIS Administration Ticagrelor 180 mg 06/22/17 06:15 Brilinta - PO 06/22/17 06:16 ONCE ONE Valsartan 320 mg 06/22/17 10:00 06/22/17 09:41 Diovan - PO 320 mg DAILY [facility] Administration ASSESSMENT/PLAN: This is a 76-year-old man with a history of PAF, CAD, HTN, type 2 DM, COPD, EYAD , hyperlipidemia, BPH, gout who presented to the ER with palpitations and SOB. 1. Paroxysmal atrial fibrillation with RVR - Continue Cardizem CD, Eliquis - Toprol XL increased 2. Demand ischemia secondary to RVR - Troponin increasing - continue to monitor - Brilinta started - Continue Toprol XL, Crestor - Echocardiogram 3. CAD - Medical management - Continue Toprol XL, Brilinta, Crestor 4. HTN - Continue Cardizem CD, Toprol XL, Diovan, Chlorthalidone, Catapres patch 5. Hyperlipidemia - Continue Crestor 6. Type 2 DM - Diet-controlled 7. COPD - Stable - Continue Breo Ellipta, Albuterol, DuoNeb 8. EYAD - Uses CPAP at night 9. BPH - Continue Proscar, Cardura 10. History of gout - Continue Colchicine Visit type - Emergency Visit Emergency Visit: Yes ED Registration Date: 06/22/17 Care time: The patient presented to the Emergency Department on the above date and was hospitalized for further evaluation of their emergent condition. - New Patient This patient is new to me today: Yes Date on this admission: 06/22/17 - Critical Care Critical Care patient: No - Discharge Referral Referred to [facility] Med P.C.: No
[2017-06-22] MEDS ORDERED: METOPROLOL SUCCINATE 25 MG TAB.SR.24H (FP) PO ONE (13:00)
[2017-06-22] MEDS: dilTIAZem HCL 30 MG TABLET (FP) PO SCH ×2 (14:30→21:25)
[2017-06-22 14:55] LABS: TROPONIN I 2.08 ng/ml (0.00-0.05)
[2017-06-22 15:13] LABS: URINE MARIJUANA THC NEGATIVE ng/ml (CUTOFF=50)
[2017-06-22] MEDS: METOPROLOL SUCCINATE 50 MG TAB.SR.24H (FP) PO SCH (21:25)
[2017-06-23] MEDS: dilTIAZem HCL 30 MG TABLET (FP) PO SCH ×3 (05:37→22:32)
[2017-06-23 08:03] LABS: TROPONIN I 0.9 ng/ml (0.00-0.05)
--- NOTE | 2017-06-23 08:50 | PN ---
Progress Note, Physician Chief Complaint: palpitations, sob History of Present Illness: developed palpitations and sob at rest watching TV at home. noted to be in AF here, HR 90s-100s in ER. HR rises to 120s when gets up to use bathroom--at those times he feels palpitations and sob but no longer feeling it at rest. toprol 50 bid incr'd to 75 bid here. never had cp/pressure, etc. no wheezing or incr chronic bronchitis congestion he reports he has had decr ET with sob requiring rest when cleaning his house for 6-12 mo or so, maybe more--stable. this happens every time consistently, even when in sinus as outpt and when not feeling palpitations no presyncope/syncope PMH: PAF CAD HTN EYAD COPD/chronic bronchitis - Current Medication List Current Medications: Active Medications Albuterol/Ipratropium (Duoneb -) 1 amp NEB DAILY [facility] Last Admin: 06/22/17 10:55 Dose: 1 amp Apixaban (Eliquis -) 5 mg PO BID [facility] Last Admin: 06/22/17 21:25 Dose: 5 mg Chlorthalidone (Hygroton -) 25 mg PO DAILY [facility] Last Admin: 06/22/17 09:42 Dose: 25 mg Clonidine HCl (Catapres Tts Patch -) 0.1 mg TD Q7D@1000 [facility] Last Admin: 06/22/17 16:48 Dose: 0.1 mg Colchicine (Colcrys -) 0.6 mg PO BID [facility] Last Admin: 06/22/17 21:25 Dose: 0.6 mg Diltiazem HCl (Cardizem -) 30 mg PO TID [facility] Last Admin: 06/23/17 05:37 Dose: 30 mg Doxazosin Mesylate (Cardura -) 8 mg PO DAILY [facility] Finasteride (Proscar -) 5 mg PO DAILY [facility] Last Admin: 06/22/17 09:42 Dose: 5 mg Metoprolol Succinate (Toprol Xl -) 75 mg PO BID [facility] Last Admin: 06/22/17 21:25 Dose: 75 mg Non-Formulary Medication (Fluticasone/Vilanterol [Breo Ellipta 100-25 Mcg Inh]) 1 each IH DAILY [facility] Last Admin: 06/22/17 18:43 Dose: Not Given Non-Formulary Medication (Albuterol Sulfate [Proair Respiclick]) 90 mcg IH QID [facility] Rosuvastatin Calcium (Crestor -) 5 mg PO DAILY [facility] Last Admin: 06/22/17 09:41 Dose: 5 mg Ticagrelor (Brilinta -) 180 mg PO ONCE ONE Stop: 06/22/17 06:16 Valsartan (Diovan -) 320 mg PO DAILY [facility] Last Admin: 06/22/17 09:41 Dose: 320 mg - Objective Vital Signs: Vital Signs Temperature 97.4 F L 06/23/17 05:39 Pulse Rate 90 06/23/17 05:39 Respiratory Rate 18 06/23/17 05:39 Blood Pressure 114/71 06/23/17 05:39 O2 Sat by Pulse Oximetry (%) 97 06/22/17 20:51 Constitutional: Yes: No Distress, Calm Eyes: No: Sclera Icterus HENT: No: Nasal Congestion Cardiovascular: Yes: Pulse Irregular, S1, S2, Other (PMI non diplaced). No: Gallop, Murmur Respiratory: Yes: CTA Bilaterally (decr sounds diffusely). No: Accessory Muscle Use, Rales, Wheezes Gastrointestinal: Yes: Normal Bowel Sounds, Soft. No: Tenderness Musculoskeletal: Yes: Other (No kyphosis) Extremities: No: Cold Edema: No Integumentary: No: Jaundice Neurological: Yes: Alert, Oriented (x3) Psychiatric: No: Agitated Labs: CBC, BMP 06/22/17 06:40 06/22/17 06:40 INR, PTT INR 1.27 (0.82-1.09) H 06/21/17 19:35 - ....Imaging EKG: Other (tele: AF 80s-90s, up to 120s briefly at times) Assessment/Plan MIBI 02/20 (lexiscan): no STs, no isch; nl EF; mild LVE w/o TID Echo 01/20: TDS; nl LV/EF; nl RV; nl LA; mild /AI; nl LAP (no RVSP) echo 04/2017: tds; nl lv, rv tds, mod-sev mr, mod tr, nl rvsp, mild ar, mild ao root dil CXR: clear lungs ecg 06/22/17: afib, vr 90s, pvc/aberrancy, no ischemic changes a/p: Type II OR (NSTEMI), hx cad: -peak trop here 2 -had similar presentation 04/2017 with trop to >3 then, clinical picture clearly c/w demand ischemia at that time. 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 -remains with no angina as outpt or currently, no concerning ischemic ECG changes -likely demand ischemia again this time with Type II OR (note: though max HR here 90s-100s, he has been 120s at rest in office recently, and suspect HR was higher at home prior to EMS giving diltiazem) -given the signif trop rise without marked rapid HR this time, and the fact that he has had similar (or faster) HRs noted mult times as outpt, i am concerned he is repeatedly infarcting his inferior wall and may develop LV dysfunction with med mgmt trial of AF as outpt. -he also now clearly reports a new MONTALVO with decr ET from usual copd baseline, and the consistency of this sx even when he is in sinus rhythm suggests it may be due to myocardial ischemia -i rec'd we revascularize his RCA system to minimize risk of hemody signif OR or LV dysfunction, and try to optimize his functional status/sx's which is of paramount importance to him--pt agreeable; will arrange transfer to [place] cath today or tomorrow -cont AF control as doing -cont bb, arb, statin, ac pAfib: -new pafib diagnosed 04/2017 when presented similarly with palps and rvr (to 150s ). 2 self-limited episodes in hospital then, and then again recurred at home but converted with addition of toprol 50 bid (diltiazem CD 120 reduced to 30 tid due to intolerable edema (which he has had with ccb's in past for htn tx)). -again here with highly symptomatic afib. -hr controlled at rest but elevated to 120s with minimal activity--toprol incr' d to 75 bid, continued dilt 30 tid (note: has not had signif wheezing hx with his copd, which is mainly chronic bronchitis with mucous) -he no longer has sx's at rest, only when HR goes up--of note, there have been no rapid HRs yet on tele this am so 75 bid may be helping. -for now, i suggest incr toprol to 100 bid and add digoxin given pt strongly desires to be free of sx's and back to baseline functional status, and he strongly prefers to defer anti-arrhythmics or ablation if can control sx's with AVN blockers alone (i disc'd with him again here in hosp) -observe tele with ambulation, and sx's on above regimen (if s.e. to toprol 100 bid will go back down to 75 bid) -if symptomatic AF continues once fully revascularized on the above med regimen , will refer to EP for sotalol/dofetalide vs ablation options -CHADS-VASC = 4, HENCE BENEFITS OF AC >> RISKS. CONT AC with ti. MR: -no signif MR on recent office study or on repeat echo in [place]. no murmur --suspect mod-severe MR reported on echo was likely due to very rapid AF then resulting in visual overestimation EYAD: -pt very compliant with home cpap, continuing here as well Essential hypertension -cont home meds COPD/Chronic bronchitis -IMPROVED ON CURRENT INHALER REGIMEN, PER DR ELLER Obstructive sleep apnea -COMPLIANT WITH CPAP Pure hypercholesterolemia -cont statin
[2017-06-23] MEDS: ROSUVASTATIN CA 10 MG TABLET (FP) PO SCH (09:34)
[2017-06-23] MEDS: COLCHICINE 0.6 MG TABLET (FP) PO SCH ×2 (09:34→22:32)
[2017-06-23] MEDS: DOXAZOSIN MESYLATE 4 MG TABLET PO SCH (09:34)
[2017-06-23] MEDS: CHLORTHALIDONE 25 MG TABLET PO SCH (09:36)
[2017-06-23] MEDS: APIXABAN 5 MG TABLET PO SCH (09:36)
[2017-06-23] MEDS: VALSARTAN 160 MG TABLET (UD) PO SCH (09:36)
[2017-06-23] MEDS: FINASTERIDE 5 MG TABLET (FP) PO SCH (09:36)
[2017-06-23] MEDS: METOPROLOL SUCCINATE 50 MG TAB.SR.24H (FP) PO SCH ×2 (09:38→22:32)
[2017-06-23] MEDS ORDERED: TICAGRELOR 60 MG TABLET PO SCH (10:00)
[2017-06-23] MEDS: ALBUTEROL SO4 2.5/IPRATROPIUM 0.5 INH SOL 3 ML VIAL.NEB. NEB SCH (10:35)
--- NOTE | 2017-06-23 12:26 | PN ---
Progress Note (short form) - Note Progress Note: PULMONARY CONSULTATION DICTATED 06/23/17 IMP AFIB WITH RVR DYSPNEA SECONDARY TO ABOVE + TROPONINS LIKELY DEMAND ISCHEMIA ASHD COPD EYAD HTN GOUT BPH DM PLAN RATE CONTROL PER CARDIOLOGY INHALED BRONCHODILATORS PRN CPAP AT NIGHT CARDIAC CATH PER CARDIOLOGY Problem List - Problems (1) Atrial fibrillation with rapid ventricular response Code(s): I48.91 - UNSPECIFIED ATRIAL FIBRILLATION (2) BPH (benign prostatic hyperplasia) Code(s): N40.0 - BENIGN PROSTATIC HYPERPLASIA WITHOUT LOWER URINRY TRACT SYMP (3) COPD (chronic obstructive pulmonary disease) Code(s): J44.9 - CHRONIC OBSTRUCTIVE PULMONARY DISEASE, UNSPECIFIED (4) Dependent edema Code(s): R60.9 - EDEMA, UNSPECIFIED (5) Diabetes mellitus Code(s): E11.9 - TYPE 2 DIABETES MELLITUS WITHOUT COMPLICATIONS (6) EYAD (obstructive sleep apnea) Code(s): G47.33 - OBSTRUCTIVE SLEEP APNEA (ADULT) (PEDIATRIC) (7) Troponin level elevated Code(s): R74.8 - ABNORMAL LEVELS OF OTHER SERUM ENZYMES
[2017-06-23] MEDS ORDERED: METOPROLOL SUCCINATE 25 MG TAB.SR.24H (FP) PO ONE (12:30)
[2017-06-23] MEDS ORDERED: DIGOXIN 0.25 MG TABLET (FP) PO ONE (12:30)
--- NOTE | 2017-06-23 15:12 | PN ---
Physical Exam: SUBJECTIVE: Patient seen and examined at bedside. Patient states that he experiences palpitations with minimal exertion such as getting up to go to the bathroom. afib with pvcs on tele. OBJECTIVE: Vital Signs Period Temp Pulse Resp BP Sys/Berumen Pulse Ox Last 24 Hr 97.4 F-97.7 F 82-101 18-20 102-154/51-73 94-97 GENERAL: The patient is awake, alert, and fully oriented, in no acute distress. HEAD: Normal with no signs of trauma. EYES: extraocular movements intact, sclera anicteric, conjunctiva clear. No ptosis. ENT: Ears normal, nares patent, oropharynx clear without exudates, moist mucous membranes. NECK: Trachea midline, full range of motion, supple. LUNGS: Breath sounds equal, clear to auscultation bilaterally, no wheezes, no crackles, no accessory muscle use. HEART: irregularly irregular rhythm, normal rate, S1, S2 without murmur, rub or gallop. ABDOMEN: Soft, nontender, nondistended, normoactive bowel sounds, no guarding, no rebound. EXTREMITIES: 2+ pulses, warm, well-perfused, no edema. NEUROLOGICAL: Cranial nerves II through X grossly intact. Normal speech, gait not observed. PSYCH: Normal mood, normal affect. SKIN: Warm, dry, normal turgor, no rashes or lesions noted Laboratory Results - last 24 hr 06/22/17 06/22/17 06/22/17 13:49 14:05 16:19 POC Glucometer 156 Creatine Kinase 170 Creatine Kinase Index 6.2 H* CK-MB (CK-2) 10.702 H Troponin I 2.08 H* Opiates Screen Negative Methadone Screen Negative Barbiturate Screen Negative Phencyclidine Screen Negative Ur Amphetamines Screen Negative MDMA (Ecstasy) Screen Negative Benzodiazepines Screen Negative Cocaine Screen Negative U Marijuana (THC) Screen Negative 06/22/17 06/23/17 20:20 06:25 POC Glucometer Creatine Kinase 108 Creatine Kinase Index CK-MB (CK-2) Troponin I 1.55 H* 0.90 H* D Opiates Screen Methadone Screen Barbiturate Screen Phencyclidine Screen Ur Amphetamines Screen MDMA (Ecstasy) Screen Benzodiazepines Screen Cocaine Screen U Marijuana (THC) Screen Active Medications Generic Name Dose Route Start Last Admin Trade Name Freq PRN Reason Stop Dose Admin Albuterol/Ipratropium 1 amp 06/22/17 10:00 06/23/17 10:35 Duoneb - NEB 1 amp DAILY JOSELUIS Administration Chlorthalidone 25 mg 06/22/17 10:00 06/23/17 09:36 Hygroton - PO 25 mg DAILY JOSELUIS Administration Clonidine HCl 0.1 mg 06/22/17 16:15 06/22/17 16:48 Catapres Tts Patch - TD 0.1 mg Q7D@1000 JOSELUIS Administration Colchicine 0.6 mg 06/22/17 10:00 06/23/17 09:34 Colcrys - PO 0.6 mg BID JOSELUIS Administration Digoxin 0.125 mg 06/24/17 10:00 Lanoxin - PO DAILY JOSELUIS Diltiazem HCl 30 mg 06/22/17 13:34 06/23/17 13:24 Cardizem - PO 30 mg TID JOSELUIS Administration Doxazosin Mesylate 8 mg 06/22/17 13:05 06/23/17 09:34 Cardura - PO 8 mg DAILY JOSELUIS Administration Finasteride 5 mg 06/22/17 10:00 06/23/17 09:36 Proscar - PO 5 mg DAILY JOSELUIS Administration Metoprolol Succinate 100 mg 06/23/17 22:00 Toprol Xl - PO BID [facility] Non-Formulary Medication 1 each 06/22/17 10:00 06/23/17 09:39 Fluticasone/Vilanterol [Breo Ellipta 100-25 Mcg Inh] IH Not Given DAILY [facility] Non-Formulary Medication 90 mcg 06/22/17 10:00 Albuterol Sulfate [Proair Respiclick] IH QID [facility] Rosuvastatin Calcium 5 mg 06/22/17 10:00 06/23/17 09:34 Crestor - PO 5 mg DAILY JOSELUIS Administration Ticagrelor 180 mg 06/22/17 06:15 Brilinta - PO 06/22/17 06:16 ONCE ONE Valsartan 320 mg 06/22/17 10:00 06/23/17 09:36 Diovan - PO 320 mg DAILY JOSELUIS Administration ASSESSMENT/PLAN: The patient is a 76 yo m w/ PMH afib, HTN, HLD who comes into the ED c/o palpitations. Found to have elevated troponins in the ED and was admitted for NSTEMI. #NSTEMI -pt for transfer to [place] for cath tomorrow -d/c home eliquis 5mg; will administer last dose this AM for cath tomorrow. -toprolol 100mg PO BID -cardizem 30mg PO TID -TSH WNL -utox negative -f/u echo -rpt EKG in AM shows a fib w/ PVCs -trop peak at 2 documented -added digoxin .125mg #HTN -c/w toprolol, cardizem -chlorthalidone 25mg PO daily #Diabetes mellitus -monitor sugar through BMPs -in add BGM/ISS if uncontrolled #COPD/EYAD -Patient on Breo and Ventolin PRN at home -Spiriva daily #HLD -continue home crestor 5mg HS #BPH -continue home flomax #FEN -no fluids indicated -monitor lytes -diabetic diet #prophylaxsis -SCDs -no gi prophy indicated #dispo -admitted to tele for NSTEMI -patient for transfer to [place] for cath Visit type - Emergency Visit Emergency Visit: Yes ED Registration Date: 06/22/17 Care time: The patient presented to the Emergency Department on the above date and was hospitalized for further evaluation of their emergent condition. - New Patient This patient is new to me today: No - Critical Care Critical Care patient: No
--- NOTE | 2017-06-23 16:50 | CONS ---
DATE OF CONSULTATION: 06/23/2017 PULMONARY CONSULTATION REFERRING PHYSICIAN: Saroj Townsend M.D. HISTORY OF PRESENT ILLNESS: The patient is a 76-year-old white male with no previous hospitalizations or office followup. Past medical history of atrial fibrillation diagnosed in 04/2017. History of COPD, obstructive sleep apnea on CPAP. Hypertension, hyperlipidemia, diabetes controlled with diet, gout, BPH, admitted to [facility] with a complaint of shortness of breath and palpitations and chest heaviness. Patient apparently was at home sitting watching TV when he started having palpitations. He also complains of chest heaviness and shortness of breath. He called EMS. EMS noted the patient was found to be in atrial fibrillation with fast ventricular response. He was sent to the emergency room as above. In the ER, he was given IV diltiazem. Heart rate and palpitations improved. Patient denies any fevers, weight loss, night sweats, nausea, hemoptysis. Denies any chest pain. He has history smoking years ago. There is no history of occupational exposure to chemicals or fumes. Of note is patient is to be transferred today for cardiac catheterization at , with possible stent placement to RCA. Of note is he underwent a cardiac catheterization in April which revealed some mild obstruction in the RCA, 50% to 60% in some areas, and 90% occlusion. The patient denies any history of DVT or PE in the past. PAST MEDICAL HISTORY: Again includes atrial fibrillation, ASHD, hypertension, hyperlipidemia, COPD, BPH, gout, diabetes diet-controlled. REVIEW OF SYSTEMS: No orthopnea, no PND. Positive palpitations. Positive chest heaviness. No nausea, no vomiting, no diaphoresis, no abdominal pain. Positive mild lower extremity edema. CURRENT MEDICATIONS: Include Breo, Ellipta, albuterol, Cardura, Diovan, Colcrys, DuoNeb, Toprol XL, Cardizem, Lanoxin, Catapres, Crestor, Brilinta, Proscar, and . PHYSICAL EXAMINATION: General: The patient is a well-developed, well-nourished male awake, alert, in no acute distress. Vital signs: He is afebrile. Heart rate is 82. Blood pressure is 139/72, respiratory rate is 20, O2 saturation is 97% on room air. HEENT: Head is normocephalic, atraumatic. Neck: Supple. Heart: Regular. S1, S2. Chest: Clear. Abdomen: Soft. Bowel sounds positive. Extremities: No cyanosis, edema. LABORATORY: WBC 5.2, hemoglobin 14.2, hematocrit 41.5, platelet count of 154,000, INR is 1.27. Troponin 1.55, currently 0.9. Chemistries: BUN 25, creatinine 0.8. IMPRESSION: 1. Rapid atrial fibrillation. Dyspnea secondary to rapid atrial fibrillation. 2. Likely demand ischemia. Positive troponins, likely due to demand ischemia. 3. Atherosclerotic heart disease . 4. Chronic obstructive pulmonary disease. 5. Obstructive sleep apnea. 6. Hypertension. 7. Diabetes, diet controlled. 8. Gout. PLAN: Continue rate control as per cardiology. Inhaled bronchodilators p.r.n. Cardiac catheterization, cardiology. KELLI ELLER M.D. [id number]
--- NOTE | 2017-06-23 18:23 | PN ---
Teaching Attending Note Name of Resident: Francisco Javier Antonio ATTENDING PHYSICIAN STATEMENT I saw and evaluated the patient. I reviewed the resident's note and discussed the case with the resident. I agree with the resident's findings and plan as documented. SUBJECTIVE: OBJECTIVE: Vital Signs Period Temp Pulse Resp BP Sys/Berumen Pulse Ox Last 24 Hr 97.4 F-98.9 F 82-101 18-20 97-139/49-73 94-97 Current Medications Generic Name Dose Route Start Last Admin Trade Name Freq PRN Reason Stop Dose Admin Albuterol/Ipratropium 1 amp 06/22/17 10:00 06/23/17 10:35 Duoneb - NEB 1 amp DAILY JOSELUIS Administration Chlorthalidone 25 mg 06/22/17 10:00 06/23/17 09:36 Hygroton - PO 25 mg DAILY JOSELUIS Administration Clonidine HCl 0.1 mg 06/22/17 16:15 06/22/17 16:48 Catapres Tts Patch - TD 0.1 mg Q7D@1000 JOSELUIS Administration Colchicine 0.6 mg 06/22/17 10:00 06/23/17 09:34 Colcrys - PO 0.6 mg BID JOSELUIS Administration Digoxin 0.125 mg 06/24/17 10:00 Lanoxin - PO DAILY JOSELUIS Diltiazem HCl 30 mg 06/22/17 13:34 06/23/17 13:24 Cardizem - PO 30 mg TID JOSELUIS Administration Doxazosin Mesylate 8 mg 06/22/17 13:05 06/23/17 09:34 Cardura - PO 8 mg DAILY JOSELUIS Administration Finasteride 5 mg 06/22/17 10:00 06/23/17 09:36 Proscar - PO 5 mg DAILY JOSELUIS Administration Metoprolol Succinate 100 mg 06/23/17 22:00 Toprol Xl - PO BID JOSELUIS Non-Formulary Medication 1 each 06/22/17 10:00 06/23/17 09:39 Fluticasone/Vilanterol [Breo Ellipta 100-25 Mcg Inh] IH Not Given DAILY JOSELUIS Non-Formulary Medication 90 mcg 06/22/17 10:00 Albuterol Sulfate [Proair Respiclick] IH QID JOSELUIS Rosuvastatin Calcium 5 mg 06/22/17 10:00 06/23/17 09:34 Crestor - PO 5 mg DAILY JOSELUIS Administration Ticagrelor 180 mg 06/22/17 06:15 Brilinta - PO 06/22/17 06:16 ONCE ONE Valsartan 320 mg 06/22/17 10:00 06/23/17 09:36 Diovan - PO 320 mg DAILY JOSELUIS Administration ASSESSMENT AND PLAN:
[2017-06-24] MEDS: dilTIAZem HCL 30 MG TABLET (FP) PO SCH (05:25)
--- NOTE | 2017-06-24 09:54 | PN ---
Progress Note (short form) - Note Progress Note: CC: S: Digoxin added yesterday, first dose this am. Toprol increased to 100 mg bid yesterday PMH: PAF CAD HTN EYAD COPD/chronic bronchitis Current Medications Albuterol/Ipratropium (Duoneb -) 1 amp NEB DAILY [facility] Last Admin: 06/23/17 10:35 Dose: 1 amp Chlorthalidone (Hygroton -) 25 mg PO DAILY [facility] Last Admin: 06/23/17 09:36 Dose: 25 mg Clonidine HCl (Catapres Tts Patch -) 0.1 mg TD Q7D@1000 [facility] Last Admin: 06/22/17 16:48 Dose: 0.1 mg Colchicine (Colcrys -) 0.6 mg PO BID [facility] Last Admin: 06/23/17 22:32 Dose: 0.6 mg Digoxin (Lanoxin -) 0.125 mg PO DAILY [facility] Diltiazem HCl (Cardizem -) 30 mg PO TID [facility] Last Admin: 06/24/17 05:25 Dose: 30 mg Doxazosin Mesylate (Cardura -) 8 mg PO DAILY [facility] Last Admin: 06/23/17 09:34 Dose: 8 mg Finasteride (Proscar -) 5 mg PO DAILY [facility] Last Admin: 06/23/17 09:36 Dose: 5 mg Metoprolol Succinate (Toprol Xl -) 100 mg PO BID [facility] Last Admin: 06/23/17 22:32 Dose: 100 mg Non-Formulary Medication (Fluticasone/Vilanterol [Breo Ellipta 100-25 Mcg Inh]) 1 each IH DAILY [facility] Last Admin: 06/23/17 09:39 Dose: Not Given Non-Formulary Medication (Albuterol Sulfate [Proair Respiclick]) 90 mcg IH QID [facility] Rosuvastatin Calcium (Crestor -) 5 mg PO DAILY [facility] Last Admin: 06/23/17 09:34 Dose: 5 mg Ticagrelor (Brilinta -) 180 mg PO ONCE ONE Stop: 06/22/17 06:16 Valsartan (Diovan -) 320 mg PO DAILY [facility] Last Admin: 06/23/17 09:36 Dose: 320 mg Vital Signs - 24 hr 06/23/17 06/23/17 06/23/17 10:00 10:20 13:21 Temperature 97.7 F Pulse Rate 101 H 82 89 Respiratory 20 Rate Blood Pressure 139/73 O2 Sat by Pulse 97 Oximetry (%) 06/23/17 06/23/17 06/23/17 13:48 15:10 18:00 Temperature 97.6 F 98.9 F 97.8 F Pulse Rate 89 96 H 92 H Respiratory 20 20 20 Rate Blood Pressure 102/51 97/49 131/62 O2 Sat by Pulse Oximetry (%) 06/23/17 06/23/17 06/24/17 21:00 22:35 02:00 Temperature 98.3 F 98.0 F Pulse Rate 99 H 89 Respiratory 16 16 16 Rate Blood Pressure 124/59 108/78 O2 Sat by Pulse 98 Oximetry (%) 06/24/17 05:25 Temperature 97.9 F Pulse Rate 91 H Respiratory 20 Rate Blood Pressure 133/68 O2 Sat by Pulse Oximetry (%) Intake & Output 06/22/17 06/23/17 06/24/17 06/25/17 07:59 07:59 07:59 07:59 Intake Total 500 320 Output Total 200 625 500 Balance -200 -125 -180 Weight 230 lb 6.4 oz Constitutional: Yes: No Distress, Calm Eyes: No: Sclera Icterus HENT: No: Nasal Congestion Cardiovascular: Yes: Pulse Irregular, S1, S2, Other (PMI non diplaced). No: Gallop, Murmur Respiratory: Yes: CTA Bilaterally (decr sounds diffusely). No: Accessory Muscle Use, Rales, Wheezes Gastrointestinal: Yes: Normal Bowel Sounds, Soft. No: Tenderness Musculoskeletal: Yes: Other (No kyphosis) Extremities: No: Cold Edema: No Integumentary: No: Jaundice Neurological: Yes: Alert, Oriented (x3) Psychiatric: No: Agitated Labs: no CBC, BMP - ....Imaging EKG: Other (tele: AF 80s-90s, up to 120s briefly at times) Assessment/Plan MIBI 02/20 (lexiscan): no STs, no isch; nl EF; mild LVE w/o TID Echo 01/20: TDS; nl LV/EF; nl RV; nl LA; mild /AI; nl LAP (no RVSP) echo 04/2017: tds; nl lv, rv tds, mod-sev mr, mod tr, nl rvsp, mild ar, mild ao root dil CXR: clear lungs ecg 06/22/17: afib, vr 90s, pvc/aberrancy, no ischemic changes a/p: - 06/24 transfer to [facility] today for cath. Holding eliquis for cath. Type II UT (NSTEMI), hx cad: -peak trop here 2 -had similar presentation 04/2017 with trop to >3 then, clinical picture clearly c/w demand ischemia at that time. 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 -remains with no angina as outpt or currently, no concerning ischemic ECG changes -likely demand ischemia again this time with Type II UT (note: though max HR here 90s-100s, he has been 120s at rest in office recently, and suspect HR was higher at home prior to EMS giving diltiazem) -given the signif trop rise without marked rapid HR this time, and the fact that he has had similar (or faster) HRs noted mult times as outpt, i am concerned he is repeatedly infarcting his inferior wall and may develop LV dysfunction with med mgmt trial of AF as outpt. -he also now clearly reports a new MONTALVO with decr ET from usual copd baseline, and the consistency of this sx even when he is in sinus rhythm suggests it may be due to myocardial ischemia -i rec'd we revascularize his RCA system to minimize risk of hemody signif UT or LV dysfunction, and try to optimize his functional status/sx's which is of paramount importance to him--pt agreeable; will arrange transfer to [place] for cath today or tomorrow -cont AF control as doing -cont bb, arb, statin, ac pAfib: -new pafib diagnosed 04/2017 when presented similarly with palps and rvr (to 150s ). 2 self-limited episodes in hospital then, and then again recurred at home but converted with addition of toprol 50 bid (diltiazem CD 120 reduced to 30 tid due to intolerable edema (which he has had with ccb's in past for htn tx)). -again here with highly symptomatic afib. -hr controlled at rest but elevated to 120s with minimal activity--toprol incr' d to 75 bid, continued dilt 30 tid (note: has not had signif wheezing hx with his copd, which is mainly chronic bronchitis with mucous) -he no longer has sx's at rest, only when HR goes up--of note, there have been no rapid HRs yet on tele this am so 75 bid may be helping. -for now, i suggest incr toprol to 100 bid and add digoxin given pt strongly desires to be free of sx's and back to baseline functional status, and he strongly prefers to defer anti-arrhythmics or ablation if can control sx's with AVN blockers alone (i disc'd with him again here in hosp) -observe tele with ambulation, and sx's on above regimen (if s.e. to toprol 100 bid will go back down to 75 bid) -if symptomatic AF continues once fully revascularized on the above med regimen , will refer to EP for sotalol/dofetalide vs ablation options -CHADS-VASC = 4, HENCE BENEFITS OF AC >> RISKS. CONT AC with eliquis. MR: -no signif MR on recent office study or on repeat echo in [place]. no murmur --suspect mod-severe MR reported on echo was likely due to very rapid AF then resulting in visual overestimation EYAD: -pt very compliant with home cpap, continuing here as well Essential hypertension -cont home meds COPD/Chronic bronchitis -IMPROVED ON CURRENT INHALER REGIMEN, PER DR ELLER Obstructive sleep apnea -COMPLIANT WITH CPAP Pure hypercholesterolemia -cont statin
[2017-06-24] MEDS ORDERED: DIGOXIN 0.125 MG TABLET (FP) PO SCH (10:00)
[2017-06-24] MEDS: VALSARTAN 160 MG TABLET (UD) PO SCH (10:13)
[2017-06-24] MEDS: COLCHICINE 0.6 MG TABLET (FP) PO SCH (10:13)
[2017-06-24] MEDS: DOXAZOSIN MESYLATE 4 MG TABLET PO SCH (10:13)
[2017-06-24] MEDS: METOPROLOL SUCCINATE 50 MG TAB.SR.24H (FP) PO SCH (10:13)
[2017-06-24] MEDS: CHLORTHALIDONE 25 MG TABLET PO SCH (10:13)
[2017-06-24] MEDS: FINASTERIDE 5 MG TABLET (FP) PO SCH (10:13)
[2017-06-24] MEDS: ROSUVASTATIN CA 10 MG TABLET (FP) PO SCH (10:13)
[2017-06-24] MEDS ORDERED: PT OWN MED DRAWER 7, Y5N ONE ×2 (11:20→12:17)
--- NOTE | 2017-06-24 12:34 | PN ---
Progress Note, Physician History of Present Illness: PULMONARY ALERT,COMFORTABLE AT REST +MONTALVO,-CP - Current Medication List Current Medications: Active Medications Albuterol/Ipratropium (Duoneb -) 1 amp NEB DAILY [facility] Last Admin: 06/23/17 10:35 Dose: 1 amp Chlorthalidone (Hygroton -) 25 mg PO DAILY [facility] Last Admin: 06/24/17 10:13 Dose: 25 mg Clonidine HCl (Catapres Tts Patch -) 0.1 mg TD Q7D@1000 [facility] Last Admin: 06/22/17 16:48 Dose: 0.1 mg Colchicine (Colcrys -) 0.6 mg PO BID [facility] Last Admin: 06/24/17 10:13 Dose: 0.6 mg Digoxin (Lanoxin -) 0.125 mg PO DAILY [facility] Last Admin: 06/24/17 10:14 Dose: 0.125 mg Diltiazem HCl (Cardizem -) 60 mg PO TID [facility] Doxazosin Mesylate (Cardura -) 8 mg PO DAILY [facility] Last Admin: 06/24/17 10:13 Dose: 8 mg Finasteride (Proscar -) 5 mg PO DAILY [facility] Last Admin: 06/24/17 10:13 Dose: 5 mg Metoprolol Succinate (Toprol Xl -) 100 mg PO BID [facility] Last Admin: 06/24/17 10:13 Dose: 100 mg Non-Formulary Medication (Fluticasone/Vilanterol [Breo Ellipta 100-25 Mcg Inh]) 1 each IH DAILY [facility] Last Admin: 06/24/17 11:56 Dose: Not Given Non-Formulary Medication (Albuterol Sulfate [Proair Respiclick]) 90 mcg IH QID [facility] Rosuvastatin Calcium (Crestor -) 5 mg PO DAILY [facility] Last Admin: 06/24/17 10:13 Dose: 5 mg Ticagrelor (Brilinta -) 180 mg PO ONCE ONE Stop: 06/22/17 06:16 Valsartan (Diovan -) 320 mg PO DAILY [facility] Last Admin: 06/24/17 10:13 Dose: 320 mg - Objective Vital Signs: Vital Signs Temperature 97.9 F 06/24/17 05:25 Pulse Rate 96 H 06/24/17 10:14 Respiratory Rate 20 06/24/17 05:25 Blood Pressure 133/68 06/24/17 05:25 O2 Sat by Pulse Oximetry (%) 98 06/23/17 21:00 Constitutional: Yes: Well Nourished, Calm Eyes: Yes: WNL HENT: Yes: WNL Neck: Yes: WNL Cardiovascular: Yes: Pulse Irregular, S1, S2 Respiratory: Yes: CTA Bilaterally Gastrointestinal: Yes: Normal Bowel Sounds, Soft Extremities: Yes: WNL Edema: No Labs: CBC, BMP Problem List - Problems (1) Atrial fibrillation with rapid ventricular response Code(s): I48.91 - UNSPECIFIED ATRIAL FIBRILLATION (2) BPH (benign prostatic hyperplasia) Code(s): N40.0 - BENIGN PROSTATIC HYPERPLASIA WITHOUT LOWER URINRY TRACT SYMP (3) COPD (chronic obstructive pulmonary disease) Code(s): J44.9 - CHRONIC OBSTRUCTIVE PULMONARY DISEASE, UNSPECIFIED (4) Dependent edema Code(s): R60.9 - EDEMA, UNSPECIFIED (5) Diabetes mellitus Code(s): E11.9 - TYPE 2 DIABETES MELLITUS WITHOUT COMPLICATIONS (6) EYAD (obstructive sleep apnea) Code(s): G47.33 - OBSTRUCTIVE SLEEP APNEA (ADULT) (PEDIATRIC) (7) Troponin level elevated Code(s): R74.8 - ABNORMAL LEVELS OF OTHER SERUM ENZYMES Assessment/Plan IMP AFIB WITH RVR DYSPNEA SECONDARY TO ABOVE + TROPONINS LIKELY DEMAND ISCHEMIA ASHD COPD EYAD HTN GOUT BPH DM PLAN RATE CONTROL PER CARDIOLOGY INHALED BRONCHODILATORS PRN CPAP AT NIGHT CARDIAC CATH PER CARDIOLOGY Problem List - Problems (1) Atrial fibrillation with rapid ventricular response Code(s): I48.91 - UNSPECIFIED ATRIAL FIBRILLATION (2) BPH (benign prostatic hyperplasia) Code(s): N40.0 - BENIGN PROSTATIC HYPERPLASIA WITHOUT LOWER URINRY TRACT SYMP (3) COPD (chronic obstructive pulmonary disease) Code(s): J44.9 - CHRONIC OBSTRUCTIVE PULMONARY DISEASE, UNSPECIFIED (4) Dependent edema Code(s): R60.9 - EDEMA, UNSPECIFIED (5) Diabetes mellitus Code(s): E11.9 - TYPE 2 DIABETES MELLITUS WITHOUT COMPLICATIONS (6) EYAD (obstructive sleep apnea) Code(s): G47.33 - OBSTRUCTIVE SLEEP APNEA (ADULT) (PEDIATRIC) (7) Troponin level elevated Code(s): R74.8 - ABNORMAL LEVELS OF OTHER SERUM ENZYMES
[2017-06-24] MEDS ORDERED: dilTIAZem HCL 60 MG TABLET (FP) PO SCH (14:00)
--- NOTE | 2017-06-24 14:24 | PN ---
Teaching Attending Note Name of Resident: Francisco Javier Antonio ATTENDING PHYSICIAN STATEMENT I saw and evaluated the patient. I reviewed the resident's note and discussed the case with the resident. I agree with the resident's findings and plan as documented. SUBJECTIVE:c/o SOB on exertion which resolved with rest. denies Cp, fever, chills, cough, N/V/C/D OBJECTIVE: Last Vital Signs Temp Pulse Resp BP Pulse Ox 98.3 F 96 H 20 123/64 96 06/24/17 09:00 06/24/17 10:14 06/24/17 09:00 06/24/17 09:00 06/24/17 09:00 General NAD CV S1 S2 irregular, tachy no chest wall tenderness Lungs CTA B/L no wheezing/rales/rhonchi Extremities trace pitting edema ASSESSMENT AND PLAN: 76yo M with PMH afib, HTN, and dyslipidemia presented to the ER with palpitations 1. Afib with RVR- HR improved. Troponin peaked at 2.08. likely demand ischemia. plan for cardiac cath as this is 2nd episode and possibility of re-infarcting. awaiting transfer to [facility]. on ti romero on hold for pending procedure. Cardio on board. cont current management
[2017-06-24 15:11] VITALS: BP 108/56; PULSE 112; TEMP 97.8
--- NOTE | 2017-06-24 20:49 | DS ---
Physical Exam: SUBJECTIVE: Patient seen and examined at bedside. Patient continues to feel palpitations on any exertion. Patient is for transfer to [place] for cardiac cath. OBJECTIVE: Vital Signs Period Temp Pulse Resp BP Sys/Berumen Pulse Ox Last 24 Hr 97.8 F-98.3 F 89-115 16-20 108-133/56-78 96-98 PHYSICAL EXAM GENERAL: The patient is awake, alert, and fully oriented, in no acute distress. HEAD: Normal with no signs of trauma. EYES: extraocular movements intact, sclera anicteric, conjunctiva clear. NECK: Trachea midline, full range of motion, supple. LUNGS: Breath sounds equal, clear to auscultation bilaterally, no wheezes, no crackles, no accessory muscle use. HEART: irregularly irregular rhythm with regular rate, S1, S2 without murmur, rub or gallop. ABDOMEN: Soft, nontender, nondistended, normoactive bowel sounds, no guarding, no rebound. EXTREMITIES: 2+ pulses, warm, well-perfused, trace edema at ankles. NEUROLOGICAL: Cranial nerves II through X grossly intact. Normal speech, gait not observed. PSYCH: Normal mood, normal affect. SKIN: Warm, dry, normal turgor, no rashes or lesions noted. LABS HOSPITAL COURSE: Date of Admission:06/22/17 The patient is a 76 yo m w/ PMH HLD, afib, diet controlled DM who comes into the ED c/o palpitations for the past 1 day. In the ED, he was found to be in afib w/ PVCs and a troponin of .6. The troponinemia increased to .95 and he was admitted for afib w/RVR and to rule out an NSTEMI. Cardiology was consulted. The patient was treated with aspirin, brillinta, cardizem, digoxin, cardura and metoprolol. His troponins were documented to peak at 2. Repeat EKG showed Afib with PVCs. An echo was WNL. The patient was transferred to [place] for elective cardiac catheterization and placement of stents. He was advised to follow up with his primary care doctor as well as his trust vault clerk upon discharge. Date of Discharge: 06/24/17 Minutes to complete discharge: 20 Discharge Summary Reason For Visit: ACUTE MYOCARDIAL INFARCTION Condition: Improved - Instructions Diet, Activity, Other Instructions: You were admitted for the treatment of your atrial fibrillation. You are being transferred to [place] for further care of this condition. Please pay close attention to the instructions you receive from this new hospital as they may change some of your medications on discharge. You should follow up with your primary care physician within one week of discharge. You should also follow up with your trust vault clerk within one week of discharge. If you begin to feel shortness of breath, palpitations, chest pain or tightness in the chest or if any of your symptoms get worse, please call your doctor or return to the ED. Referrals: Beck Mendez MD [Staff Physician] - Romario Butt MD [Staff Physician] - Disposition: TRANSFER ACUTE CARE/OTHER HOSP - Home Medications Comprehensive Discharge Medication List: Ambulatory Orders Rosuvastatin Calcium [Crestor] 5 mg PO DAILY 05/12/15 Colchicine 0.6 mg PO BID 05/06/17 Doxazosin Mesylate 8 mg PO DAILY 05/06/17 Finasteride 5 mg PO DAILY 05/06/17 Albuterol Sulfate [Proair Respiclick] 90 mcg IH QID 06/21/17 Apixaban [Eliquis] 5 mg PO BID 06/21/17 Chlorthalidone 25 mg PO DAILY 06/21/17 Fluticasone/Vilanterol [Breo Ellipta 100-25 Mcg INH] 1 each IH DAILY 06/21/17 Ipratropium/Albuterol Sulfate [Iprat-Albut 0.5-3(2.5) mg/3 ml] 3 ml IH DAILY Olmesartan Medoxomil [Benicar -] 40 mg PO DAILY 06/21/17 Clonidine Patch [Catapres Tts Patch -] 0.1 mg TD Q7D@1000 patch 06/24/17 Digoxin [Lanoxin -] 0.125 mg PO DAILY tablet 06/24/17 Diltiazem [Cardizem -] 60 mg PO TID tablet 06/24/17 Metoprolol Succinate [Toprol XL -] 100 mg PO BID tab 06/24/17 This patient is new to me today: No Emergency Visit: Yes ED Registration Date: 06/22/17 Care time: The patient presented to the Emergency Department on the above date and was hospitalized for further evaluation of their emergent condition. Critical Care patient: No - Discharge Referral Referred to [facility] No
== END 2017-06-24 16:40 | disposition short-term general hospital (02) | DRG 282 ==
LOC: JER 18:49 → JERBED 06-22 01:45 → J4S 06-22 03:02
PROVIDERS: ADMIT Internal Medicine; ATTEND Internal Medicine
DX: I21.A1 Myocardial infarction type 2 (principal); I10 Essential (primary) hypertension; E11.9 Type 2 diabetes mellitus without complications; J44.9 Chronic obstructive pulmonary disease, unspecified; E78.5 Hyperlipidemia, unspecified; G47.33 Obstructive sleep apnea (adult) (pediatric); N40.0 Benign prostatic hyperplasia without lower urinary tract symptoms; M10.9 Gout, unspecified; I25.10 Atherosclerotic heart disease of native coronary artery without angina pectoris; J42 Unspecified chronic bronchitis; I48.0 Paroxysmal atrial fibrillation; E66.9 Obesity, unspecified; Z68.36 Body mass index [BMI] 36.0-36.9, adult
CPT/HCPCS: 36415; 71010-TC; 80053; 80307; 82550; 82553; 83735; 84100; 84443; 84484; 85025; 85610; 93005; 93010; 93306-TC; 94640; 99285-25

== ENCOUNTER 2019-01-03 11:55 | Emergency (ER) | payer OTHER, MEDICARE ==
[2019-01-03 12:02] VITALS: BP 137/72; PULSE 88; TEMP 98.7; BMI 34.9
[2019-01-03] MEDS ORDERED: DEXAMETHASONE SOD PHOSPHATE 10 MG/1 ML VIAL ONE ×2 (12:14→12:31)
[2019-01-03] MEDS ORDERED: DEXAMETHASONE SOD PHOSPHATE 10 MG/1 ML VIAL IM ONE (12:20)
--- NOTE | 2019-01-03 12:25 | PDOC ---
History of Present Illness - General Chief Complaint: Pain Stated Complaint: LEG PAIN, BACK PAIN Time Seen by Provider: 01/03/19 11:59 History Source: Patient Exam Limitations: No Limitations - History of Present Illness Initial Comments: 01/03/19 12:20 78 y/o male with leg pain bilaterally for several weeks. Patient was unable to get up this morning. Notices that when he walks he needs to stop due to the pain. No weakness. Numbness due to his diabetic neuropathy. No recent fall or trauma. taking Advil. No chest pain or SOB. Feels fine at rest. Patient on blood thinners and also states he noticed no swelling. Mild back pain thinks it might be sciatica. Patient denies dysuria or hematuria. No recent procedures or incontinence. No fever or chills. 01/03/19 12:29 Timing/Duration: intermittent Severity: mild Past History - Past Medical History Allergies/Adverse Reactions: Allergies Allergy/AdvReac Type Severity Reaction Status Date / Time No Known Allergies Allergy Verified 01/03/19 11:58 Home Medications: Ambulatory Orders Rosuvastatin Calcium [Crestor] 5 mg PO DAILY 05/12/15 Colchicine 0.6 mg PO BID 05/06/17 Doxazosin Mesylate 8 mg PO DAILY 05/06/17 Finasteride 5 mg PO DAILY 05/06/17 Apixaban [Eliquis] 5 mg PO BID 06/21/17 Chlorthalidone 25 mg PO DAILY 06/21/17 Ipratropium/Albuterol Sulfate [Iprat-Albut 0.5-3(2.5) mg/3 ml] 3 ml IH DAILY Olmesartan Medoxomil [Benicar -] 40 mg PO DAILY 06/21/17 Diltiazem [Cardizem -] 60 mg PO TID tablet 06/24/17 Metoprolol Succinate [Toprol XL -] 100 mg PO BID tab 06/24/17 Clopidogrel Bisulfate [Plavix] 75 mg PO DAILY 03/04/18 Digoxin [Lanoxin -] 0.125 mg PO HS 03/04/18 Gabapentin 300 mg PO HS 03/04/18 Fluticasone/Vilanterol [Breo Ellipta 200-25 Mcg INH] 1 each IH DAILY 03/05/18 Methylprednisolone [Medrol Dose Gigi] 4 mg PO ASDIR #21 tablet 01/03/19 Anemia: No Asthma: No Cancer: No Cardiac Disorders: Yes (atrial fibrillation-ablation) CVA: No COPD: Yes CHF: (in 2017) Dementia: No Diabetes: Yes GI Disorders: No Disorders: Yes (prostatic hypertrophy) HTN: Yes Hypercholesterolemia: Yes Liver Disease: No Seizures: No Thyroid Disease: No Other medical history: herniated disk - Surgical History Cardiac Surgery: Yes (stent 2017(6mos ago?)) - Suicide/Smoking/Psychosocial Hx Smoking History: Former smoker Have you smoked in the past 12 months: No If you are a former smoker, when did you quit?: MORE THAN 15 YEARS Information on smoking cessation initiated: No Hx Alcohol Use: (social) Drug/Substance Use Hx: No Substance Use Type: Alcohol Hx Substance Use Treatment: No Review of Systems - Review of Systems Able to Perform ROS?: Yes Is the patient limited Burundian proficient: No Constitutional: No: Chills, Fever Respiratory: No: Cough, Shortness of Breath Cardiac (ROS): No: Chest Pain, Edema, Chest Tightness ABD/GI: No: Nausea, Vomiting : No: Dysuria Musculoskeletal: Yes: Back Pain All Other Systems: Reviewed and Negative *Physical Exam - Vital Signs Last Vital Signs Temp Pulse Resp BP Pulse Ox 98.7 F 88 16 137/72 98 01/03/19 11:55 01/03/19 11:55 01/03/19 11:55 01/03/19 11:55 01/03/19 11:55 - Physical Exam General Appearance: Yes: Nourished, Appropriately Dressed. No: Apparent Distress HEENT: positive: EOMI, LIZBET, Normal ENT Inspection, Normal Voice, Symmetrical Neck: positive: Trachea midline, Normal Thyroid, Supple. negative: Tender, Rigid Respiratory/Chest: positive: Lungs Clear, Normal Breath Sounds. negative: Chest Tender, Respiratory Distress Cardiovascular: positive: Regular Rhythm, Regular Rate, S1, S2. negative: Edema , JVD, Murmur Vascular Pulses: Femoral (R): 4+, Femoral (L): 4+, Carotid (R): 4+, Carotid (L) : 4+, Dorsalis-Pedis (R): 4+, Doralis-Pedis (L): 4+ Gastrointestinal/Abdominal: positive: Normal Bowel Sounds, Flat, Soft. negative : Tender, Organomegaly, Pulsatile Mass Lymphatic: negative: Adenopathy, Tenderness, Other Musculoskeletal: positive: Normal Inspection. negative: CVA Tenderness, Vertebral Tenderness (no spinous process tenderness, full ROM, no paravertebral muscle tenderness b/l) Extremity: positive: Normal Capillary Refill, Normal Inspection, Normal Range of Motion. negative: Pedal Edema, Swelling, Calf Tenderness, Erythema Integumentary: positive: Normal Color, Dry, Warm Neurologic: positive: pbx mechanic II-XII NML intact, Fully Oriented, Alert, Normal Mood/ Affect (strength 5+/5 b/l in UE and LE, no focal deficits noted), Normal Response, Motor Strength 5/5 ED Treatment Course - ADDITIONAL ORDERS Additional order review: 01/03/19 12:23 Patient appears to have stenosis or claudication with neuropathy Decadron 10 mg IM Will treat with Medrol dose pack and to monitor sugar Needs MRI as out patient Pt is in agreement with plan 01/03/19 12:27 *DC/Admit/Observation/Transfer Diagnosis at time of Disposition: Diabetic neuropathy Qualifiers: Diabetes mellitus type: type 2 Diabetes mellitus complication detail: with other neurological complication Qualified Code(s): E11.49 - Type 2 diabetes mellitus with other diabetic neurological complication - Discharge Dispostion Disposition: HOME Condition at time of disposition: Stable Decision to Admit order: No - Referrals Referrals: Beck Mendez MD [Primary Care Provider] - - Patient Instructions Printed Discharge Instructions: DI for Diabetic Neuropathy Additional Instructions: Medrol dose pack as directed Tylenol, rest MRI as out patient of lower back to r/o stenosis Monitor your sugar on the Medrol dose pack If worsen return to ER - Post Discharge Activity
== END 2019-01-03 12:50 | disposition home or self-care (01) ==
LOC: FER 11:55
PROC: 3E023GC Introduction of Other Therapeutic Substance into Muscle, Percutaneous Approach (ICD-10-PCS; principal; 2019-01-03)
DX: E11.49 Type 2 diabetes mellitus with other diabetic neurological complication (principal); I10 Essential (primary) hypertension; I50.9 Heart failure, unspecified; E78.00 Pure hypercholesterolemia, unspecified; I48.91 Unspecified atrial fibrillation; Z87.891 Personal history of nicotine dependence
CPT/HCPCS: 96372; 99283-25; J1100

== ENCOUNTER 2019-02-18 08:08 | Emergency (ER) | payer OTHER, MEDICARE | END 2019-02-18 08:44 | disposition home or self-care (01) | LOC: FER 08:08 ==

== ENCOUNTER 2019-03-07 07:24 | Emergency (ER) | payer OTHER, MEDICARE ==
[2019-03-07 07:30] VITALS: BP 128/74; PULSE 75; TEMP 98.8; BMI 34.4
[2019-03-07] MEDS ORDERED: MECLIZINE HCL 25 MG TABLET (FP) PO ONE (07:52)
[2019-03-07] MEDS ORDERED: ALBUTEROL SO4 2.5/IPRATROPIUM 0.5 INH SOL 3 ML VIAL.NEB. NEB ONE ×2 (07:54→07:58)
[2019-03-07] MEDS ORDERED: MECLIZINE HCL 25 MG TABLET (FP) ONE (07:58)
--- NOTE | 2019-03-07 08:02 | PDOC ---
History of Present Illness - General Chief Complaint: Cold Symptoms Stated Complaint: COUGH/CONGESTION Time Seen by Provider: 03/07/19 07:35 History Source: Patient Exam Limitations: No Limitations - History of Present Illness Initial Comments: 03/07/19 07:56 78 yo male h/o afib htn hld DM CAD prior smoker who comes c/o feelign like he cant breath and congestion. pt states he has been told he has seasonal allergies , and has had facal pressure and fullness with cough for several weeks. cough is now productive of yellow sputum. was on steroids previously for short course. does use inhalers from time to time. he also c/o feeling diizziness, vertigo. pt states it is worse with turning and rolling over. no imbalance, no weakness . in addition, he c/o pain in his right foot, after accidently set something on it. he is on eloquis. and has hd brusing and pain in the ankle. follows with Dr Schafer, and Dr Chairez who he has seen recntly. no f/c no leg swelling. no chest pain. Past History - Past Medical History Allergies/Adverse Reactions: Allergies Allergy/AdvReac Type Severity Reaction Status Date / Time No Known Allergies Allergy Verified 02/18/19 08:09 Home Medications: Ambulatory Orders Rosuvastatin Calcium [Crestor] 5 mg PO DAILY 05/12/15 Colchicine 0.6 mg PO ASDIR PRN 05/06/17 Doxazosin Mesylate 8 mg PO DAILY 05/06/17 Finasteride 5 mg PO DAILY 05/06/17 Apixaban [Eliquis] 5 mg PO BID 06/21/17 Chlorthalidone 25 mg PO DAILY 06/21/17 Ipratropium/Albuterol Sulfate [Iprat-Albut 0.5-3(2.5) mg/3 ml] 3 ml IH DAILY Digoxin [Lanoxin -] 0.125 mg PO HS 03/04/18 Gabapentin 300 mg PO HS 03/04/18 Fluticasone/Vilanterol [Breo Ellipta 200-25 Mcg INH] 1 each IH DAILY 03/05/18 Albuterol Sulfate [Proair Hfa] 8.5 gm IH QID 01/03/19 Diltiazem [Cardizem -] 30 mg PO TID 01/03/19 Metformin HCl [Glucophage] 250 mg PO DAILY 01/03/19 Metoprolol Succinate [Toprol XL -] 50 mg PO ASDIR 01/03/19 Nasonex 01/03/19 Olmesartan Medoxomil [Benicar] 40 mg PO DAILY 01/03/19 Tamsulosin HCl [Flomax] 0.4 mg PO DAILY 01/03/19 Indomethacin 50 mg PO Q8H PRN #21 capsule 02/18/19 Prednisone [Deltasone] 40 mg PO DAILY #8 tablet 03/07/19 levoFLOXacin [Levaquin] 750 mg PO DAILY #7 tab 03/07/19 Anemia: No Asthma: No Cancer: No Cardiac Disorders: Yes (atrial fibrillation-ablation) CVA: No COPD: Yes CHF: (in 2017) Dementia: No Diabetes: Yes GI Disorders: No Disorders: Yes (prostatic hypertrophy) HTN: Yes Hypercholesterolemia: Yes Liver Disease: No Seizures: No Thyroid Disease: No - Surgical History Cardiac Surgery: Yes (stent 2017(6mos ago?)) - Suicide/Smoking/Psychosocial Hx Smoking History: Former smoker Have you smoked in the past 12 months: No If you are a former smoker, when did you quit?: MORE THAN 15 YEARS Information on smoking cessation initiated: No Hx Alcohol Use: Yes (social) Drug/Substance Use Hx: No Substance Use Type: Alcohol Hx Substance Use Treatment: No Review of Systems - Review of Systems Constitutional: No: Chills, Diaphoresis HEENTM: No: Eye Pain, Blurred Vision Respiratory: Yes: Cough, Shortness of Breath Cardiac (ROS): Yes: Irregular Heart Rate. No: Chest Pain, Edema Musculoskeletal: No: Back Pain, Gout, Joint Pain Integumentary: Yes: Bruising (right foot). No: Change in Color Neurological: Yes: Dizziness. No: Headache, Numbness All Other Systems: Reviewed and Negative *Physical Exam - Vital Signs Last Vital Signs Temp Pulse Resp BP Pulse Ox 98.8 F 75 18 128/74 95 03/07/19 07:26 03/07/19 07:26 03/07/19 07:26 03/07/19 07:26 03/07/19 07:26 - Physical Exam Comments: 03/07/19 07:59 awake alert NAD lungs with faint wheeze crackle left . decreased aeration at bases. heart rrr no mrg abd soft nt nd ext wwp . right foot with eccymosis at toes, mild ttp over lat TF ligaments. no edema. nuero alert oriented x 3. 5/5 all four ext. finger to nose alt hand movement normal. neg romberg. positive concetta sanchez pike to left. speech clear. ED Treatment Course - LABORATORY CBC & Chemistry Diagram: 03/07/19 08:10 03/07/19 08:10 - RADIOLOGY Radiology Studies Ordered: Category Date Time Status CHEST PA & LAT [RAD] Stat Radiology 03/07/19 07:53 Ordered Medical Decision Making - Medical Decision Making 03/07/19 08:02 78 yo male h/o allergies,afib htn hld dm here with c/o dizziness, cough congestion. sxs of vertigo. normal cerebellar exam however pt on eloquis, will obtain ct head and sinuses. cxr r/o pna. duoneb. meclizine. will r/o other causes of dizziness such as electrolyte abnoramlity, anemia, dig toxicitiy . 03/07/19 10:10 pt with infiltrate on cxr. otherwise well appearing. d/w pt regarding admission vs. home, would like to go home. 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 will see dr mendez tomorrow. states levaquin is ok for him. will add steroids 40 mg aleah yustarting tomorrow and meclizine. for vertigo. pt overall feels better after nebs and meclizine. *DC/Admit/Observation/Transfer Diagnosis at time of Disposition: Pneumonia, Vertigo - Discharge Dispostion Disposition: HOME Condition at time of disposition: Improved - Prescriptions Prescriptions: levoFLOXacin [Levaquin] 750 mg PO DAILY #7 tab Prednisone [Deltasone] 40 mg PO DAILY #8 tablet - Referrals Referrals: Beck Mendez MD [Primary Care Provider] - - Patient Instructions Printed Discharge Instructions: DI for Acute Bronchitis, Pneumonia-Adult Additional Instructions: your xray today shows a pneumonia. you need to take levaquin 750 mg daily x 7 days. you should also take prednisone 40 mg daily x 4 days starting tomorrow 03/08. you need to follow up with DR Chairez tomorrow . return for worsening shortness of breath, or any concerns. use your albuterol inhaler 2 puffs every 4 hours as needed for shortness of breath or wheezing. - Post Discharge Activity
[2019-03-07 08:32] LABS: BASO % 0.4 % (0-2.0); EOS % 0.3 % (0-4.5); HEMATOCRIT 44.6 % (35.4-49); HEMOGLOBIN 14.8 GM/dl (11.7-16.9); MCHC 33.2 g/dl (32.0-35.9); MEAN CELL VOLUME 90.4 fl (80-96); MEAN PLT VOLUME 8.3 fl (7.5-11.1); MONO % 5.4 % (3.8-10.2); NEUT % 89.9 % (42.8-82.8); PLATELET COUNT 197 K/MM3 (134-434); RBC 4.93 M/mm3 (4.00-5.60); RDW 12.8 % (11.9-15.9); WHITE BLOOD COUNT 12.3 K/mm3 (4.0-10.8)
[2019-03-07 08:56] LABS: CALCIUM 9.2 mg/dl (8.5-10); CREATININE 0.8 mg/dl (0.55-1.3); POTASSIUM 3.7 mmol/L (3.5-5.1); TOT PROT 6.8 g/dl (6.4-8.2)
[2019-03-07 09:19] LABS: N-TERMINAL BNP 707.1 pg/ml (5-450)
[2019-03-07 09:59] LABS: ALBUMIN 3.7 g/dl (3.4-5.0)
[2019-03-07] MEDS ORDERED: predniSONE 20 MG TABLET (UD) PO ONE (10:12)
[2019-03-07] MEDS ORDERED: predniSONE 20 MG TABLET (UD) ONE (10:13)
[2019-03-07] MEDS ORDERED: levoFLOXacin 750 MG TABLET PO ONE (10:15)
== END 2019-03-07 10:30 | disposition home or self-care (01) ==
LOC: FER 07:24
PROC: 3E0F7GC Introduction of Other Therapeutic Substance into Respiratory Tract, Via Natural or Artificial Opening (ICD-10-PCS; principal; 2019-03-07)
DX: J18.9 Pneumonia, unspecified organism (principal); R42 Dizziness and giddiness; I48.91 Unspecified atrial fibrillation; I10 Essential (primary) hypertension; E78.5 Hyperlipidemia, unspecified; E11.9 Type 2 diabetes mellitus without complications
CPT/HCPCS: 36415; 71046-TC-FY; 80053; 80162; 83880; 84484; 85025; 99282-25

== ENCOUNTER 2019-03-23 09:02 | Emergency (ER) | payer OTHER, MEDICARE ==
[2019-03-23 09:09] VITALS: BP 124/74; TEMP 98.4; BMI 34.9
[2019-03-23] MEDS ORDERED: ACETAMINOPHEN 500 MG TABLET (FP) PO ONE (10:01)
[2019-03-23] MEDS ORDERED: DEXAMETHASONE SOD PHOSPHATE 4 MG/1 ML VIAL IM ONE (10:01)
[2019-03-23] MEDS ORDERED: DEXAMETHASONE SOD PHOSPHATE 4 MG/1 ML VIAL ONE (10:06)
[2019-03-23] MEDS ORDERED: ACETAMINOPHEN 500 MG TABLET (FP) ONE (10:06)
--- NOTE | 2019-03-23 10:23 | PDOC ---
History of Present Illness - General Chief Complaint: Pain Stated Complaint: left calf pain Time Seen by Provider: 03/23/19 09:04 - History of Present Illness Initial Comments: 03/23/19 10:47 78 years old past medical history significant for hypertension, hypercholesterolemia, A. fib on Alquist, COPD presents to the ED with three-day history of pain and swelling to left knee consistent with previous gout flares no recent fever chills redness pain is worse with ambulation alleviated somewhat by rest. Patient also had an injury to his right ankle approximately 1 month ago and has persistent swelling since then to the area Symptoms are mild to moderate persistent constant exacerbated by walking no alleviating factors. Past History - Past Medical History Allergies/Adverse Reactions: Allergies Allergy/AdvReac Type Severity Reaction Status Date / Time No Known Allergies Allergy Verified 03/23/19 09:03 Home Medications: Ambulatory Orders Rosuvastatin Calcium [Crestor] 5 mg PO DAILY 05/12/15 Colchicine 0.6 mg PO ASDIR PRN 05/06/17 Doxazosin Mesylate 8 mg PO DAILY 05/06/17 Finasteride 5 mg PO DAILY 05/06/17 Apixaban [Eliquis] 5 mg PO BID 06/21/17 Chlorthalidone 25 mg PO DAILY 06/21/17 Ipratropium/Albuterol Sulfate [Iprat-Albut 0.5-3(2.5) mg/3 ml] 3 ml IH DAILY Digoxin [Lanoxin -] 0.125 mg PO HS 03/04/18 Gabapentin 300 mg PO HS 03/04/18 Fluticasone/Vilanterol [Breo Ellipta 200-25 Mcg INH] 1 each IH DAILY 03/05/18 Albuterol Sulfate [Proair Hfa] 8.5 gm IH QID 01/03/19 Diltiazem [Cardizem -] 30 mg PO TID 01/03/19 Metformin HCl [Glucophage] 250 mg PO DAILY 01/03/19 Metoprolol Succinate [Toprol XL -] 50 mg PO ASDIR 01/03/19 Nasonex 01/03/19 Olmesartan Medoxomil [Benicar] 40 mg PO DAILY 01/03/19 Tamsulosin HCl [Flomax] 0.4 mg PO DAILY 01/03/19 Indomethacin 50 mg PO Q8H PRN #21 capsule 02/18/19 Prednisone [Deltasone] 40 mg PO DAILY #8 tablet 03/07/19 levoFLOXacin [Levaquin] 750 mg PO DAILY #7 tab 03/07/19 Prednisone [Prednisone 50 MG TABLETS] 50 mg PO DAILY 4 Days #4 tablet 03/23/19 Anemia: No Asthma: No Cancer: No Cardiac Disorders: Yes (atrial fibrillation-ablation) CVA: No COPD: Yes CHF: (in 2017) Dementia: No Diabetes: Yes GI Disorders: No Disorders: Yes (prostatic hypertrophy) HTN: Yes Hypercholesterolemia: Yes Liver Disease: No Seizures: No Thyroid Disease: No - Surgical History Cardiac Surgery: Yes (stent 2017(6mos ago?)) - Suicide/Smoking/Psychosocial Hx Smoking History: Former smoker Have you smoked in the past 12 months: No If you are a former smoker, when did you quit?: MORE THAN 15 YEARS Information on smoking cessation initiated: No Hx Alcohol Use: Yes (social) Drug/Substance Use Hx: No Substance Use Type: Alcohol Hx Substance Use Treatment: No Review of Systems - Review of Systems Comments:: 03/23/19 10:47 ROS: A complete review of 10 out of 10 review of systems is taken and is negative apart from what is previously mentioned below and in the HPI. *Physical Exam - Vital Signs Last Vital Signs Temp Pulse Resp BP Pulse Ox 98.4 F 96 H 18 124/74 96 03/23/19 09:03 03/23/19 09:03 03/23/19 09:03 03/23/19 09:03 03/23/19 09:03 - Physical Exam Comments: 03/23/19 11:52 Vitals: Triage Vital signs reviewed General Appearance: no acute distress, well nourished well developed, Head: Atraumatic, Lungs: Clear to auscultation bilateral, good air movement bilaterally, Abdomen: Soft, non distended, normal bowel sounds, non tender to palpation Extremities: Full range of motion to all extremities, slight swelling and warmth to left knee full range of motion no pain with passive range of motion effusion, neurovascularly intact distally. Skin: No rashes or lesions, no rash, no petechiae Neuro: Strength intact to all extremities, Sensation intact to all extremities Psych: normal mood, normal affect ED Treatment Course - RADIOLOGY Radiology Studies Ordered: Category Date Time Status ANKLE & FOOT-RIGHT* [RAD] Stat Radiology 03/23/19 09:54 Ordered KNEE 3 POS-LEFT [RAD] Stat Radiology 03/23/19 09:44 Ordered DUPLEX VASCUL US-1 LEG [US] Stat Ultrasound 03/23/19 09:44 Ordered - Medications Given in the ED: ED Medications Discontinued Medications Generic Name Dose Route Start Last Admin Trade Name Daphne PRN Reason Stop Dose Admin Acetaminophen 1,000 mg 03/23/19 10:01 03/23/19 10:14 Tylenol - PO 03/23/19 10:02 1,000 mg ONCE ONE Administration Dexamethasone Sodium Phosphate 4 mg 03/23/19 10:01 03/23/19 10:15 Decadron Injection - IM 03/23/19 10:02 4 mg ONCE ONE Administration Medical Decision Making - Medical Decision Making 03/23/19 11:53 Left knee swelling. For several days consistent with previous gout flares X-ray demonstrates no acute fracture dislocation but does demonstrate moderate to severe [id number] arthritis Differential diagnosis includes gouty arthritis versus reactive arthritis. No fever no chills no pain with passive range of motion low suspicion at this time for septic knee however will have patient follow up with orthopedics in 1- 2 days he was instructed to return to ED for any severe worsening symptoms or for any concerns. We'll place patient on short course of prednisone Tylenol for pain recommend rest ice elevation very strict return instructions discussed with patient. 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 Continue home medications as prescribed. Take [id number] Tylenol as directed on package for the next 5 days. Prednisone as prescribed for the next 3 days. Follow-up with Dr. Ca orthopedics within 1-2 days. Return to ED for any fever severe worsening knee pain swelling any redness or signs of infection or for any concerns. - Post Discharge Activity
[2019-03-23 12:14] VITALS: PULSE 84
== END 2019-03-23 12:14 | disposition home or self-care (01) ==
LOC: FER 09:02
PROC: 3E023GC Introduction of Other Therapeutic Substance into Muscle, Percutaneous Approach (ICD-10-PCS; principal; 2019-03-23)
DX: M10.262 Drug-induced gout, left knee (principal); I10 Essential (primary) hypertension; E11.9 Type 2 diabetes mellitus without complications; J44.9 Chronic obstructive pulmonary disease, unspecified; E78.00 Pure hypercholesterolemia, unspecified; Z87.891 Personal history of nicotine dependence
CPT/HCPCS: 73562-TC-LT-FY; 73610-TC-RT-FY; 73630-TC-RT-FY; 93971-TC; 96372; 99282-25

== ENCOUNTER 2019-08-22 11:57 | Emergency (ER) | payer OTHER, MEDICARE ==
[2019-08-22 12:20] VITALS: BP 157/80; PULSE 92; TEMP 97.6; BMI 34.9
--- NOTE | 2019-08-22 12:41 | PDOC ---
History of Present Illness - General Chief Complaint: Pain Stated Complaint: ANKLE PAIN Time Seen by Provider: 08/22/19 12:28 - History of Present Illness Initial Comments: 08/22/19 13:50 Chief complaint: Swelling left foot HPI: History of recurrent gout, complains of swelling of his left ankle for approximately 1 week. Prior attacks of gout have occurred in both ankles. The erythema and pain have subsided but there is still swelling, and he is concerned. There are also ecchymoses over the forefoot. He does not recall any trauma. Review of systems: Denies fever/chills, URI symptoms, sore throat, cough, chest pain, shortness of breath, abdominal pain, nausea, vomiting, diarrhea, visual or focal neurologic symptoms, unsteadiness of gait. Remainder of systems reviewed and negative Past medical history: Coronary artery disease with stent, atrial fibrillation, high blood pressure, diet-controlled diabetes, elevated cholesterol, BPH. Medications extensive but include baby aspirin and Eliquis. Social history: Denies tobacco or nonprescription drugs. Drinks 1 glass of wine in the evening. Active and without significant disability. Stable home situation Family history: Notable for coronary artery disease, diabetes Physical exam: Alert and oriented well-developed well-nourished no acute distress cheerful and cooperative Afebrile, vital signs stable ENT clear Neck supple without bruit or mass or nodes Chest clear CV irregularly irregular with rate of 90. No murmurs rubs or gallops. Pulses full and symmetric. No JVD Abdomen soft nontender without mass organomegaly Extremities: Diffuse swelling of the left foot and ankle, mild. No erythema or warmth. No deformities. Ecchymoses that appear to be old at the MTP joints 2 3 and 4 which suggest old injury. No point tenderness anywhere on the foot or ankle. No posterior calf swelling or tenderness. Neurological C2 to 12 intact. Strength full and symmetric. No focal sensory or motor deficits. Gait stable and unimpaired Impression: Diffuse swelling and ecchymoses suggest an injury, probably sprain, with residual swelling. No sign of acute gout. Rule out fracture. Plan: Uric acid is normal at 6.8. Blood glucose 157. X-ray of the foot negative. Symptomatic treatment with rest elevation and continued allopurinol and colchicine, his regular medications. Examination, history, and labs suggest probable sprain with residual swelling. If no improvement or additional symptoms develop, advised to see his regular doctor, Dr. Morales, or return to ER for further evaluation. Adequately ambulatory and in no significant pain or other distress at discharge to follow-up as directed. Past History - Past Medical History Allergies/Adverse Reactions: Allergies Allergy/AdvReac Type Severity Reaction Status Date / Time No Known Allergies Allergy Verified 03/23/19 09:03 Home Medications: Ambulatory Orders Rosuvastatin Calcium [Crestor] 5 mg PO DAILY 05/12/15 Colchicine 0.6 mg PO ASDIR PRN 05/06/17 Doxazosin Mesylate 8 mg PO DAILY 05/06/17 Finasteride 5 mg PO DAILY 05/06/17 Apixaban [Eliquis] 5 mg PO BID 06/21/17 Chlorthalidone 25 mg PO DAILY 06/21/17 Ipratropium/Albuterol Sulfate [Iprat-Albut 0.5-3(2.5) mg/3 ml] 3 ml IH DAILY Digoxin [Lanoxin -] 0.125 mg PO HS 03/04/18 Gabapentin 300 mg PO HS 03/04/18 Fluticasone/Vilanterol [Breo Ellipta 200-25 Mcg INH] 1 each IH DAILY 03/05/18 Albuterol Sulfate [Proair Hfa] 8.5 gm IH QID 01/03/19 Diltiazem [Cardizem -] 30 mg PO TID 01/03/19 Metformin HCl [Glucophage] 250 mg PO DAILY 01/03/19 Nasonex 01/03/19 Olmesartan Medoxomil [Benicar] 40 mg PO DAILY 01/03/19 Tamsulosin HCl [Flomax] 0.4 mg PO DAILY 01/03/19 Indomethacin 50 mg PO Q8H PRN #21 capsule 02/18/19 Aspirin [Aspirin EC] 81 mg PO DAILY 08/22/19 Metoprolol Succinate [Toprol Xl] 100 mg PO BID 08/22/19 Anemia: No Asthma: No Cancer: No Cardiac Disorders: Yes (atrial fibrillation-ablation) CVA: No COPD: Yes CHF: (in 2017) Dementia: No Diabetes: Yes GI Disorders: No Disorders: Yes (prostatic hypertrophy) HTN: Yes Hypercholesterolemia: Yes Liver Disease: No Seizures: No Thyroid Disease: No Other medical history: Gout - Surgical History Cardiac Surgery: Yes (stent 2016) - Psycho Social/Smoking Cessation Hx Smoking History: Former smoker Have you smoked in the past 12 months: No If you are a former smoker, when did you quit?: 2002 Information on smoking cessation initiated: No Hx Alcohol Use: Yes (SOCIAL) Drug/Substance Use Hx: No Substance Use Type: Alcohol Hx Substance Use Treatment: No *Physical Exam - Vital Signs Last Vital Signs Temp Pulse Resp BP Pulse Ox 97.6 F 92 H 18 157/80 97 08/22/19 11:58 08/22/19 11:58 08/22/19 11:58 08/22/19 11:58 08/22/19 11:58 Discharge - Discharge Information Problems reviewed: Yes Clinical Impression/Diagnosis: Gout Qualifiers: Gout site: foot Gout etiology: idiopathic Chronicity: chronic Laterality: left Presence of tophus: without tophus Qualified Code(s): M1A.0720 - Idiopathic chronic gout, left ankle and foot, without tophus (tophi) Condition: Stable Disposition: HOME - Admission No - Follow up/Referral Referrals: Beck Mendez MD [Primary Care Provider] - - Patient Discharge Instructions Patient Printed Discharge Instructions: Low-Purine Diet, DI for Gout - Post Discharge Activity
== END 2019-08-22 13:52 | disposition home or self-care (01) ==
LOC: FER 11:57
DX: M1A.0720 Idiopathic chronic gout, left ankle and foot, without tophus (tophi) (principal); Z87.891 Personal history of nicotine dependence; I10 Essential (primary) hypertension; E78.00 Pure hypercholesterolemia, unspecified; I48.91 Unspecified atrial fibrillation; J44.9 Chronic obstructive pulmonary disease, unspecified; N40.0 Benign prostatic hyperplasia without lower urinary tract symptoms
CPT/HCPCS: 36415; 73630-TC-LT; 82962; 84550; 99283-25

== ENCOUNTER 2019-09-27 06:36 | Emergency (ER) | payer OTHER, MEDICARE ==
[2019-09-27 07:03] VITALS: TEMP 97; BMI 35.5
--- NOTE | 2019-09-27 07:21 | PDOC ---
History of Present Illness - General Chief Complaint: Blood Pressure Problem Stated Complaint: JALEEL BLOOD PRESSURE Time Seen by Provider: 09/27/19 07:13 History Source: Patient Exam Limitations: No Limitations - History of Present Illness Initial Comments: 09/27/19 07:21 79 year old male with Past medical history of atrial fibrillation status post ablation, COPD, congestive heart failure, diabetes, hypertension, hyperlipidemia , sciatica, BPH, gout, coronary disease presents with complaint of high blood pressure. Pt states he woke up a few hours ago with a pounding in his ears, took his BP and noted his BP was elevated. he took sevearl bps since awakening this morning and it was anywhere from sbp 140s to a high of 160s/110s with a HR in the 80s-90s. He is concerned today because that ist he highest BP he has ever seen. The patient denies any associated chest pain, lightheadedness, shortness of breath, dyspnea on exertion, nausea, vomiting, diaphoresis, abdominal pain, back pain. The patient does endorse some mild leg swelling which is baseline. Patient states that he had a recent gouty flare and was taken off of his 6.5 mg of HCTZ for the past week (He was told to take half of a 12.5 mg tablet) And was told to keep an eye on his blood pressure as may be elevated. The patient also was started on prednisone about 4 to 5 days ago. The patient has a blood pressure log from the previous week reading in the high normal with SBP of approximately 140s over 80s Consistently over the past week, With a couple of readings in the 150s systolic. ROS Constitutional - no reported Fever, Chills, HEENT: no reported vision changes, sore throat Respiratory: no reported cough, sob, hemoptysis Cardiac: no reported chest pain, palpitations, light headedness, leg swelling Abd/GI: no reported abd pain, nausea, vomiting, blood per rectum, melena, diarrhea : no reported dysuria, frequency, discharge Musculskelatal - no reported back pain, joint swelling skin - no reported bruising, erythema, rash neurological: no reported headache, numbness, focal weakness, tingling, ataxia, hematologic: no reported easy bruising, easy bleeding Physical Exam GENERAL: The patient is awake, alert, and fully oriented, Nontoxic - in no acute distress. HEAD: Normocephalic, atraumatic. EYES: extraocular movements intact, sclera anicteric, conjunctiva clear. ENT: Normal voice, Moist mucous membranes. NECK: Normal range of motion, supple LUNGS: Breath sounds equal, clear to auscultation bilaterally. No wheezes, no rhonchi, no rales. HEART: Regular rate and rhythm, normal S1 and S2 without murmur, rub or gallop. ABDOMEN: Soft, nontender, No guarding, no rebound. No CVA tenderness EXTREMITIES: Normal range of motion, no edema. NEUROLOGICAL: No facial assymetry, Normal speech, PSYCH: Normal mood, normal affect. SKIN: Warm, Dry, normal turgor, A&P 79y M presents withconcern for an elevated BP reading in setting of having stopped his low dose HCTZ 1 week ago without any other complaints. will obtain an EKG to screen his HR as he endorsed some palpitations earlier bp slightly elevated here, h does note he ate out last nght to watch the game. this may be the cause of his htn today. 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 I answered all of the patient's questions. The patient was satisfied with the care received and felt comfortable with the discharge plan and treatment plan. The patient will call their primary care physician within 24 hours to arrange follow-up and will return to the Emergency Department with any new, persistent or worsening symptoms. Past History - Past Medical History Allergies/Adverse Reactions: Allergies Allergy/AdvReac Type Severity Reaction Status Date / Time No Known Allergies Allergy Verified 03/23/19 09:03 Home Medications: Ambulatory Orders Rosuvastatin Calcium [Crestor] 5 mg PO DAILY 05/12/15 Colchicine 0.6 mg PO ASDIR PRN 05/06/17 Finasteride 5 mg PO DAILY 05/06/17 Apixaban [Eliquis] 5 mg PO BID 06/21/17 Ipratropium/Albuterol Sulfate [Iprat-Albut 0.5-3(2.5) mg/3 ml] 3 ml IH DAILY Digoxin [Lanoxin -] 0.125 mg PO HS 03/04/18 Gabapentin 300 mg PO HS 03/04/18 Fluticasone/Vilanterol [Breo Ellipta 200-25 Mcg INH] 1 each IH DAILY 03/05/18 Albuterol Sulfate [Proair Hfa] 8.5 gm IH QID 01/03/19 Diltiazem [Cardizem -] 30 mg PO TID 01/03/19 Metformin HCl [Glucophage] 500 mg PO DAILY 01/03/19 Olmesartan Medoxomil [Benicar] 40 mg PO DAILY 01/03/19 Tamsulosin HCl [Flomax] 0.4 mg PO DAILY 01/03/19 Metoprolol Succinate [Toprol Xl] 100 mg PO BID 08/22/19 Allopurinol [Zyloprim -] 200 mg PO DAILY 09/27/19 Icosapent Ethyl [Vascepa] 1 gm PO DAILY 09/27/19 Magnesium 2 tab PO BID 09/27/19 Mometasone Furoate 1 spray .ROUTE DAILY 09/27/19 Anemia: No Asthma: No Cancer: No Cardiac Disorders: Yes (atrial fibrillation-ablation) CVA: No COPD: Yes CHF: (in 2016) Dementia: No Diabetes: Yes GI Disorders: No Disorders: Yes (prostatic hypertrophy) HTN: Yes Hypercholesterolemia: Yes Liver Disease: No Seizures: No Thyroid Disease: No - Surgical History Cardiac Surgery: Yes (stent 2016) - Psycho Social/Smoking Cessation Hx Smoking History: Former smoker Have you smoked in the past 12 months: No If you are a former smoker, when did you quit?: 16 Information on smoking cessation initiated: No Hx Alcohol Use: No Drug/Substance Use Hx: No Substance Use Type: Alcohol Hx Substance Use Treatment: No *Physical Exam - Vital Signs Last Vital Signs Temp Pulse Resp BP Pulse Ox 97 F L 85 18 189/105 H 98 09/27/19 06:54 09/27/19 06:54 09/27/19 06:54 09/27/19 06:54 09/27/19 06:54 Heart Score/ECG Review - ECG Impressions Comment:: 09/27/19 08:06 Twelve-lead EKG was performed and reviewed by me. irregularly irregular rate of [address] changes suggestive of ischemia Discharge - Discharge Information Problems reviewed: Yes Clinical Impression/Diagnosis: Hypertension Qualifiers: Hypertension type: essential hypertension Qualified Code(s): I10 - Essential ( primary) hypertension Condition: Stable Disposition: HOME - Admission No - Follow up/Referral Referrals: Romario Butt MD [Primary Care Provider] - - Patient Discharge Instructions Patient Printed Discharge Instructions: DI for High Blood Pressure Additional Instructions: Return to the emergency department immediately with ANY new, persistent or worsening symptoms including any chest pain, shortness of breath, worsening leg swelling, lightheadedness or any concerns. Decrease your salt intake I suspect this might be the cause of your blood pressure readings today. Continue to monitor your blood pressure and give getting a call for further Evaluation and management of your blood pressure. You MUST call and follow up with your doctor tomorrow for further evaluation of your symptoms. Results were discussed with you. Please make sure your doctor reviews the results of your emergency evaluation. Your Emergency Department visit is not complete without a follow up with your doctor. Print Language: [place] - Post Discharge Activity
[2019-09-27 08:10] VITALS: BP 173/89; PULSE 84
--- NOTE | 2019-09-27 10:06 | EKG ---
Test Reason : Blood Pressure : / mmHG Vent. Rate : 075 BPM Atrial Rate : 104 BPM P-R Int : 000 ms QRS Dur : 092 ms QT Int : 350 ms P-R-T Axes : 000 046 024 degrees QTc Int : 390 ms ATRIAL FIBRILLATION ABNORMAL ECG WHEN COMPARED WITH ECG OF 22-JUN-2017 01:48, VENT. RATE HAS DECREASED Confirmed by JOSELYN BERMEO MD ([id number]) on 09/27/2019 10:06:10 AM Referred By: AMOR LR Confirmed By:JOSELYN BERMEO MD
== END 2019-09-27 08:26 | disposition home or self-care (01) ==
LOC: FER 06:36
DX: I10 Essential (primary) hypertension (principal); I48.91 Unspecified atrial fibrillation; J44.9 Chronic obstructive pulmonary disease, unspecified; E11.9 Type 2 diabetes mellitus without complications; E78.00 Pure hypercholesterolemia, unspecified; N40.0 Benign prostatic hyperplasia without lower urinary tract symptoms
CPT/HCPCS: 93005; 99282-25

== ENCOUNTER 2019-10-08 09:40 | Inpatient (IN) | payer OTHER, MEDICARE ==
--- NOTE | 2019-10-08 09:45 | PDOC ---
History of Present Illness <Petrona Jones - Last Filed: 10/08/19 13:06> - History of Present Illness Initial Comments: HPI: 79 year old male with PMH of atrial fibrillation (on ASA and Eliquis) status post ablation, COPD, congestive heart failure, diabetes, hypertension, hyperlipidemia, sciatica, BPH, gout, coronary disease presenting with black stools and weakness. Patient states he has not been feeling like himself for the past two days. He has been feeling weak such that he feels like he needs to rest frequently. No falls or syncope. Endorsing congestion, cough, and poor appetite. Has had black stools for the last two days. Is wondering if it might be due to dayquil/nyquil he has been taking for the past two days. Has never had black stools before. Had a colonoscopy many years ago that was "normal." Shortness of breath is at baseline due to his COPD. No chest pain or fevers. Endorsing chills. PCP: Dr. Mendez ROS: Constitutional: no fever, +chills HEENT: no throat pain, +congestion Cardiovascular: no chest pain, no palpitations Respiratory: +cough, no shortness of breath Gastrointestinal: no abdominal pain, +melena Genitourinary: no dysuria, no hematuria Musculoskeletal: no myalgia, no arthralgia Skin: no rash, no itching Neurologic: no headache, +weakness PE: General: Awake, alert, and fully oriented, in no acute distress Head: No signs of trauma Eyes: EOMI, sclera anicteric ENT: Moist mucus membranes Neck: Normal ROM, supple Lungs: Lungs clear, Normal breath sounds Cardio: Irregular rhythm, S1 and S2 present Abdomen: Soft, nontender. No guarding, no rebound, no masses Extremities: Normal range of motion, Distal pulses present SKIN: Warm, Dry, normal turgor Neurologic: Cranial nerves II through XII grossly intact. Normal speech ED Course/MDM: DDX including but not limited to GI bleed upper vs lower, anemia, influenza, UTI , PNA Labs, EKG, CXR EKG: rate 132, QTc 435, Afib with RVR 10/08/19 10:55 CBC WBC 5.0 K/mm3 (4.0-10.8) 10/08/19 10:26 RBC 3.31 M/mm3 (4.00-5.60) L 10/08/19 10:26 Hgb 9.9 GM/dl (11.7-16.9) L 10/08/19 10:26 Hct 30.0 % (35.4-49) L D 10/08/19 10:26 MCV 90.7 fl (80-96) 10/08/19 10:26 MCH 29.9 pg (25.7-33.7) 10/08/19 10:26 MCHC 33.0 g/dl (32.0-35.9) 10/08/19 10:26 RDW 12.9 % (11.9-15.9) 10/08/19 10:26 Plt Count 165 K/MM3 (134-434) 10/08/19 10:26 MPV 7.8 fl (7.5-11.1) 10/08/19 10:26 Absolute Neuts (auto) 3.8 K/mm3 10/08/19 10:26 Neutrophils % 74.4 % (42.8-82.8) 10/08/19 10:26 Lymphocytes % 15.9 % (8-40) D 10/08/19 10:26 Monocytes % 8.8 % (3.8-10.2) 10/08/19 10:26 Eosinophils % 0.7 % (0-4.5) D 10/08/19 10:26 Basophils % 0.2 % (0-2.0) 10/08/19 10:26 No leukocytosis Hgb 9.9 decreased from ~14.8 in February 2019 CMP Sodium 127 mmol/L (136-145) L 10/08/19 10:26 Potassium 4.4 mmol/L (3.5-5.1) 10/08/19 10:26 Chloride 95 mmol/L (98-107) L 10/08/19 10:26 Carbon Dioxide 26 mmol/L (21-32) 10/08/19 10:26 Anion Gap 6 MMOL/L (8-16) L 10/08/19 10:26 BUN 38.0 mg/dl (7-18) H 10/08/19 10:26 Creatinine 0.9 mg/dl (0.55-1.3) 10/08/19 10:26 Est GFR (CKD-EPI)AfAm 94.48 10/08/19 10:26 Est GFR (CKD-EPI)NonAf 81.52 10/08/19 10:26 Random Glucose 193 mg/dl (74-106) H 10/08/19 10:26 Calcium 8.8 mg/dl (8.5-10) 10/08/19 10:26 Total Bilirubin 0.6 mg/dl (0.2-1) 10/08/19 10:26 AST 37 U/L (15-37) 10/08/19 10:26 ALT 35 U/L (13-61) 10/08/19 10:26 Alkaline Phosphatase 37 U/L (45-117) L 10/08/19 10:26 Creatine Kinase 45 U/L (26-308) 10/08/19 10:26 Troponin I < 0.03 ng/ml (0.00-0.05) 10/08/19 10:26 B-Natriuretic Peptide 562.9 pg/ml (5-450) H 10/08/19 10:26 Total Protein 5.6 g/dl (6.4-8.2) L 10/08/19 10:26 Albumin 3.3 g/dl (3.4-5.0) L 10/08/19 10:26 Hyponatremic BUN elevated Tpn undetectable CXR without acute pathology, my impression Patient with rate in the 130s. 15mg cardizem IV. Will reassess 10/08/19 11:[address] Butt, [phone] Rincon who is visualization developer 10/08/19 11:[address] Rincon Requested I place a consult for Dr. Treviño 10/08/19 11:[address] Stack per request of Dr. Mendez 10/08/19 11:[address] Stack who is concerned that there is no colonoscopy availability for the weekend; requested that we consider transfer for patient Updated patient's son who is amenable to our recommendations 10/08/19 12:28 Dr. Jones spoke with Dr. Mendez who requested patient be admitted under Dr. Fall/[place] Called Dr. Mao's office Told to call [phone] Speaking with coat operator 10/08/19 12:[address] Amaral, GI, , awaiting callback 10/08/19 13:[address] Amaral. He spoke with Dr. Stack. Dr. Stack will evaluate the patient at [place]. Discussed case with Tosha Colin who accepted patient to telemetry 10/08/19 13:46 Patient signed blood consent; witnessed by son 1 u prbc ordered 10/08/19 14:30 Rate in the 130s Another 15mg cardizem ordered 500cc fluid bolus 10/08/19 15:52 Dr. Stack evaluated patient. He spoke with Dr. Amaral who will take care of the patient when he is transferred to [facility] 10/08/19 16:02 <Kaylan Diallo - Last Filed: 10/08/19 16:27> - General Chief Complaint: Respiratory Stated Complaint: COUGH & COLD SX Time Seen by Provider: 10/08/19 09:44 Past History <Petrona Jones - Last Filed: 10/08/19 13:06> - Past Medical History Anemia: No Asthma: No Cancer: No Cardiac Disorders: Yes (atrial fibrillation-ablation) CVA: No COPD: Yes CHF: (in 2017) Dementia: No Diabetes: Yes GI Disorders: No Disorders: Yes (prostatic hypertrophy) HTN: Yes Hypercholesterolemia: Yes Liver Disease: No Seizures: No Thyroid Disease: No - Surgical History Cardiac Surgery: Yes (stent 2016) - Psycho Social/Smoking Cessation Hx Smoking History: Former smoker Have you smoked in the past 12 months: No If you are a former smoker, when did you quit?: 16 Hx Alcohol Use: No Drug/Substance Use Hx: No Substance Use Type: Alcohol Hx Substance Use Treatment: No <Kaylan Diallo - Last Filed: 10/08/19 16:27> - Past Medical History Allergies/Adverse Reactions: Allergies Allergy/AdvReac Type Severity Reaction Status Date / Time No Known Allergies Allergy Verified 10/08/19 09:41 Home Medications: Ambulatory Orders Colchicine 0.6 mg PO HS PRN 05/06/17 Finasteride 5 mg PO DAILY 05/06/17 Apixaban [Eliquis] 5 mg PO BID 06/21/17 Ipratropium/Albuterol Sulfate [Iprat-Albut 0.5-3(2.5) mg/3 ml] 3 ml IH DAILY Digoxin [Lanoxin -] 0.125 mg PO HS 03/04/18 Gabapentin 300 mg PO BID 03/04/18 Fluticasone/Vilanterol [Breo Ellipta 200-25 Mcg INH] 1 each IH DAILY 03/05/18 Albuterol Sulfate [Proair Hfa] 8.5 gm IH QID 01/03/19 Diltiazem [Cardizem -] 30 mg PO TID 01/03/19 Metformin HCl [Glucophage] 500 mg PO DAILY 01/03/19 Olmesartan Medoxomil [Benicar] 40 mg PO DAILY 01/03/19 Tamsulosin HCl [Flomax] 0.4 mg PO DAILY 01/03/19 Metoprolol Succinate [Toprol Xl] 100 mg PO BID 08/22/19 Allopurinol [Zyloprim -] 200 mg PO DAILY 09/27/19 Icosapent Ethyl [Vascepa] 1 gm PO DAILY 09/27/19 Aspirin [Aspirin EC] 81 mg PO DAILY 10/08/19 Hydrochlorothiazide 12.5 mg PO DAILY 10/08/19 Magnesium 2 tab PO BID 10/08/19 Mometasone Furoate [Asmanex 110Mcg -] 1 inh IH BID 10/08/19 Prednisone 20 mg PO DAILY 10/08/19 *Physical Exam - Vital Signs Last Vital Signs Temp Pulse Resp BP Pulse Ox 98.1 F 108 H 18 96/53 L 96 10/08/19 09:40 10/08/19 12:09 10/08/19 12:09 10/08/19 12:09 10/08/19 12:09 <Petrona Jones - Last Filed: 10/08/19 13:06> ED Treatment Course - LABORATORY CBC & Chemistry Diagram: 10/08/19 10:26 10/08/19 10:26 - ADDITIONAL ORDERS Additional order review: Laboratory Results 10/08/19 10/08/19 10/08/19 10:53 10:26 10:26 PT with INR INR PTT (Actin FS) Sodium Potassium Chloride Carbon Dioxide Anion Gap BUN Creatinine Est GFR (CKD-EPI)AfAm Est GFR (CKD-EPI)NonAf Random Glucose Calcium Total Bilirubin AST ALT Alkaline Phosphatase Creatine Kinase 45 Troponin I B-Natriuretic Peptide 562.9 H Total Protein Albumin Stool Occult Blood Positive 10/08/19 10/08/19 10/08/19 10:26 10:26 10:26 PT with INR 21.9 H INR 1.98 H PTT (Actin FS) Sodium 127 L Potassium 4.4 Chloride 95 L Carbon Dioxide 26 Anion Gap 6 L BUN 38.0 H Creatinine 0.9 Est GFR (CKD-EPI)AfAm 94.48 Est GFR (CKD-EPI)NonAf 81.52 Random Glucose 193 H Calcium 8.8 Total Bilirubin 0.6 AST 37 ALT 35 Alkaline Phosphatase 37 L Creatine Kinase Troponin I < 0.03 B-Natriuretic Peptide Total Protein 5.6 L Albumin 3.3 L Stool Occult Blood 10/08/19 10:26 PT with INR INR PTT (Actin FS) 34.9 Sodium Potassium Chloride Carbon Dioxide Anion Gap BUN Creatinine Est GFR (CKD-EPI)AfAm Est GFR (CKD-EPI)NonAf Random Glucose Calcium Total Bilirubin AST ALT Alkaline Phosphatase Creatine Kinase Troponin I B-Natriuretic Peptide Total Protein Albumin Stool Occult Blood 10/08/19 10:26 RBC 3.31 L MCV 90.7 MCHC 33.0 RDW 12.9 MPV 7.8 Neutrophils % 74.4 Lymphocytes % 15.9 D Monocytes % 8.8 Eosinophils % 0.7 D Basophils % 0.2 - Medications Given in the ED: ED Medications Discontinued Medications Generic Name Dose Route Start Last Admin Trade Name Freq PRN Reason Stop Dose Admin Diltiazem HCl 15 mg 10/08/19 11:05 10/08/19 11:10 Cardizem Injection - IVPUSH 10/08/19 11:06 15 mg ONCE ONE Administration <Petrona Jones - Last Filed: 10/08/19 13:06> - LABORATORY CBC & Chemistry Diagram: 10/08/19 10:26 10/08/19 10:26 <Kaylan Diallo - Last Filed: 10/08/19 16:27> Discharge - Discharge Information Problems reviewed: Yes - Admission Yes <Petrona Jones - Last Filed: 10/08/19 13:06> - Discharge Information Problems reviewed: Yes - Admission Yes <Kaylan Diallo - Last Filed: 10/08/19 16:27> - Discharge Information Clinical Impression/Diagnosis: Atrial fibrillation with rapid ventricular response, GI bleed Condition: Guarded - Follow up/Referral Referrals: Beck Mendez MD [Primary Care Provider] - - Patient Discharge Instructions - Post Discharge Activity Critical Care Total Critical Care Time (in minutes): 60 Critical Care Statement: The care of this patient involved high complexity decision making to prevent further life threatening deterioration of the patient 's condition and/or to evaluate & treat vital organ system(s) failure or risk of failure. <Kaylan Diallo - Last Filed: 10/08/19 16:27>
[2019-10-08 10:53] LABS: BASO % 0.2 % (0-2.0); EOS % 0.7 % (0-4.5); HEMOGLOBIN 9.9 GM/dl (11.7-16.9); LYMPH % 15.9 % (8-40); MCH 29.9 pg (25.7-33.7); MEAN CELL VOLUME 90.7 fl (80-96); MEAN PLT VOLUME 7.8 fl (7.5-11.1); MONO % 8.8 % (3.8-10.2); NEUT % 74.4 % (42.8-82.8); PLATELET COUNT 165 K/MM3 (134-434); RBC 3.31 M/mm3 (4.00-5.60); RDW 12.9 % (11.9-15.9)
[2019-10-08] MEDS ORDERED: dilTIAZem HCL 50 MG/10 ML - 10 ML VIAL IVPUSH ONE ×2 (11:05→15:50)
[2019-10-08 11:06] LABS: ALBUMIN 3.3 g/dl (3.4-5.0); BILIRUBIN,TOTAL 0.6 mg/dl (0.2-1); CALCIUM 8.8 mg/dl (8.5-10); CREATININE 0.9 mg/dl (0.55-1.3); POTASSIUM 4.4 mmol/L (3.5-5.1); TOT PROT 5.6 g/dl (6.4-8.2)
--- NOTE | 2019-10-08 11:06 | PDOC ---
Attending Attestation - Resident Resident Name: Kaylan Diallo - ED Attending Attestation I have performed the following: I have examined & evaluated the patient, The case was reviewed & discussed with the resident, I agree w/resident's findings & plan, Exceptions are as noted - HPI HPI: 10/08/19 11:01 79 yo male h/o CHF copd, afib on eliquis, here with c/o generalized Fatigue, not feeling well. no n/v has noted black stools for few days. pt states he had positive sick contact of children at home with flue, but he himself has not had any fever. no n/v. no diarrhea. no abd pain. does feel sob, and lightheaded. - Physicial Exam PE: 10/08/19 11:06 awake alert pallor noted. lungs clear bilat heart irreg tachycardia. ext wwp. no edema. 2 + dp/ pt pulses bilat. alert oriented x 3. - Medical Decision Making 10/08/19 11:07 79 yo male h/o chf copd, afib on blood thinner with " not feeling well" and dark stools. differential gi bleed, afib with rvr noted. chf copd pneumonia also considered in addition to flu. [place] possible.plan cbc cmp bnp trop ekg cxr flu swab. pt in afib with rvr given diltiazem 15 mg ivp, type and screen. rectal exam with dark black stool in vault. labs pending. 10/08/19 11:55 pt found to be improved following diltiazem 15 mg ivp, heart rate 105, bp 98/ 70. anemic with hgb 9.8. d/w dr lopez, will admit to telemetry. recommend admitting to hospitalist. d/w GI because no OR capability on weekends at [place]. will require transfer to [facility] for possible endoscopy after 24 hours hold eloquis and asa. d/w dr trejo covering for dr lara, will recommend transfusion one unit. 10/08/19 16:05 pt agreed to transfusion after much discussion, initially hesitant. given second round of diltiazem 15 mg ivp and 500 NS bolus. rpt cbc ordered and pending. pt evaluated by DR Stack in ED, and anesthesia felt better served at [facility] due to anemia, afib with rvr and presence of eliquis on board. Heart Score/ECG Review #1 General ECG Interpretation: Normal Intervals, No acute ischemic changes Compared to previous ECG there are: Other (afib with rVR rate 132 bpm occasional PVC. TWI III, AVF.) Critical Care Total Critical Care Time (in minutes): 60 Critical Care Statement: The care of this patient involved high complexity decision making to prevent further life threatening deterioration of the patient 's condition and/or to evaluate & treat vital organ system(s) failure or risk of failure.
[2019-10-08] MEDS ORDERED: dilTIAZem HCL 50 MG/10 ML - 10 ML VIAL ONE (11:07)
[2019-10-08 11:09] LABS: INR 1.98 (0.82-1.09); PROTHROMBIN TIME (PATIENT) 21.9 SEC (10.2-13.0)
[2019-10-08] MEDS ORDERED: PANTOPRAZOLE SODIUM 40 MG VIAL IVPUSH ONE ×2 (12:52→13:45)
[2019-10-08] MEDS ORDERED: PANTOPRAZOLE SODIUM 40 MG VIAL ONE ×2 (13:00→13:49)
[2019-10-08] MEDS: PANTOPRAZOLE SODIUM 80 MG in SODIUM CHLORIDE 100 ML IVPB SCH ×2 (14:20→23:50)
--- NOTE | 2019-10-08 15:41 | PN ---
Progress Note (short form) - Note Progress Note: Patient is a 79 yo male seen in ED with likely UGI bleed/melena. Full consult dictated. Patient with history of COPD, CHF, Afib on Eliquis and ASA (81mg). Developed black stool x 2 days with some weakness/SOB. Seen in ER with heme + black stool in rectal vault, mild hypotension (systolic BP 90-100) and tachycardia (110-140) - given Diltiazem and IV fluids (awaiting PRBC transfusion). On IV Protonix. Hct 30% Alert, denies N/V/abdominal pain or cramps. No prior hx of GI bleed/PUD Lungs clear Cardiac- tachycardic, ??irreg Abdomen soft +BS nontender Labs per EHR; BUN/creat 38/0.9 serum Na =127 INR 1.98 WBC =5.0 normal platelet count Impression: Acute UGI bleed - likely due to ASA/Eliquis Agree with IV PPI and IV fluids ?PRBC txn Will need EGD to evaluate more fully ; discussed with Anesthesia and ER Physician who feel patient needs to receive PRBCs and be transferred to [facility] for close monitoring. Waiting will also allow for anticoagulant effects of Eliquis to decrease. If stable , can have EGD in am or on Friday (if signs of further bleeding, would need emergent EGD). In interim, patient also needs stabilization of his BP/HR and followup of his hyponatremia (expect the BUN to improve s/p bleed and with hydration). Will discuss GI transfer of care to Dr Amaral at [facility].
[2019-10-08] MEDS ORDERED: SODIUM CHLORIDE 500 ML IV STA ×2 (15:51→19:21)
--- NOTE | 2019-10-08 16:39 | CON.CARD ---
Cardiology Consult (text) - Consultation Consultation Note: Chief Complaint: weak, dark stools History of Present Illness: 79 yo male presented to ER due to weakness and dark stools. Sxs for past 2 days. No cp sob palps dizzy loc pnd orthopnea le edema. Found to have anemia and afib with rvr in ER. Sees dr lara for cardio. PMH: CAD/pci HTN HPL COPD BPH afib gout DM - Alcohol/Substance Use Hx Alcohol Use: No - Smoking History Have you smoked in the past 12 months: No If you are a former smoker, when did you quit?: MORE THAN 10 YEARS Home Medications - Allergies Allergies/Adverse Reactions: Allergies Allergy/AdvReac Type Severity Reaction Status Date / Time No Known Allergies Allergy Verified 10/08/19 09:41 - Home Medications Home Medications: Ambulatory Orders Home Medications Medication Instructions Recorded Colchicine 0.6 mg PO HS PRN 05/06/17 Finasteride 5 mg PO DAILY 05/06/17 Apixaban [Eliquis] 5 mg PO BID 06/21/17 Ipratropium/Albuterol Sulfate 3 ml IH DAILY 06/21/17 [Iprat-Albut 0.5-3(2.5) mg/3 ml] Digoxin [Lanoxin -] 0.125 mg PO HS 03/04/18 Gabapentin 300 mg PO BID 03/04/18 Fluticasone/Vilanterol [Breo 1 each IH DAILY 03/05/18 Ellipta 200-25 Mcg INH] Albuterol Sulfate [Proair Hfa] 8.5 gm IH QID 01/03/19 Diltiazem [Cardizem -] 30 mg PO TID 01/03/19 Metformin HCl [Glucophage] 500 mg PO DAILY 01/03/19 Olmesartan Medoxomil [Benicar] 40 mg PO DAILY 01/03/19 Tamsulosin HCl [Flomax] 0.4 mg PO DAILY 01/03/19 Metoprolol Succinate [Toprol Xl] 100 mg PO BID 08/22/19 Allopurinol [Zyloprim -] 200 mg PO DAILY 09/27/19 Icosapent Ethyl [Vascepa] 1 gm PO DAILY 09/27/19 Aspirin [Aspirin EC] 81 mg PO DAILY 10/08/19 Hydrochlorothiazide 12.5 mg PO DAILY 10/08/19 Magnesium 2 tab PO BID 10/08/19 Mometasone Furoate [Asmanex 110Mcg 1 inh IH BID 10/08/19 -] Prednisone 20 mg PO DAILY 10/08/19 Family Disease History - Family Disease History Family History: Denies (no cmp) Review of Systems - Review of Systems Constitutional: denies: Chills, Fever Eyes: denies: Eye Pain HENT: denies: Nasal Congestion Neck: denies: Stiffness Cardiovascular: denies: Edema Respiratory: denies: Orthopnea, PND Genitourinary: denies: Burning, Hematuria Musculoskeletal: denies: Muscle Pain Integumentary: denies: Rash Neurological: denies: Seizure, Syncope Endocrine: denies: Excessive Sweating Hematology/Lymphatic: denies: Excessive Bleeding Vital Signs: Vital Signs Period Temp Pulse Resp BP Sys/Berumen Pulse Ox Last 24 Hr 98 F-98.1 F 57-128 18-20 95-126/48-82 96-98 Constitutional: Yes: Well Nourished, No Distress Eyes: No: Sclera Icterus HENT: No: Nasal Congestion Neck: No: Decreased ROM Respiratory: Yes: CTA Bilaterally. No: Accessory Muscle Use, Rales, Wheezes Gastrointestinal: Yes: Normal Bowel Sounds. No: Distention, Hepatomegaly, Palpable Mass, Tenderness Cardiovascular: Yes: Pulse Irregular JVD: No Carotid Bruit: No PMI: Non-Displaced Heart Sounds: Yes: S1, S2. No: Gallop Murmur: No: Systolic Murmur, Diastolic Murmur Musculoskeletal: Yes: Other (No kyphosis) Extremities: No: Cool, Cyanosis Edema: No Peripheral Pulses: 2+ Left Carotid, 2+ Right Carotid, 2+ Left Doralis Pedis, 2+ Right Dorsalis Pedis Integumentary: No: Jaundice Neurological: Yes: Alert, Oriented (x3) Psychiatric: No: Agitated Laboratory Last Values WBC 5.0 K/mm3 (4.0-10.8) 10/08/19 10:26 RBC 3.31 M/mm3 (4.00-5.60) L 10/08/19 10:26 Hgb 9.9 GM/dl (11.7-16.9) L 10/08/19 10:26 Hct 30.0 % (35.4-49) L D 10/08/19 10:26 MCV 90.7 fl (80-96) 10/08/19 10:26 MCH 29.9 pg (25.7-33.7) 10/08/19 10:26 MCHC 33.0 g/dl (32.0-35.9) 10/08/19 10:26 RDW 12.9 % (11.9-15.9) 10/08/19 10:26 Plt Count 165 K/MM3 (134-434) 10/08/19 10:26 MPV 7.8 fl (7.5-11.1) 10/08/19 10:26 Absolute Neuts (auto) 3.8 K/mm3 10/08/19 10:26 Neutrophils % 74.4 % (42.8-82.8) 10/08/19 10:26 Lymphocytes % 15.9 % (8-40) D 10/08/19 10:26 Monocytes % 8.8 % (3.8-10.2) 10/08/19 10:26 Eosinophils % 0.7 % (0-4.5) D 10/08/19 10:26 Basophils % 0.2 % (0-2.0) 10/08/19 10:26 PT with INR 21.9 SEC (10.2-13.0) H 10/08/19 10:26 INR 1.98 (0.82-1.09) H 10/08/19 10:26 PTT (Actin FS) 34.9 SECONDS (25.2-36.5) 10/08/19 10:26 Sodium 127 mmol/L (136-145) L 10/08/19 10:26 Potassium 4.4 mmol/L (3.5-5.1) 10/08/19 10:26 Chloride 95 mmol/L (98-107) L 10/08/19 10:26 Carbon Dioxide 26 mmol/L (21-32) 10/08/19 10:26 Anion Gap 6 MMOL/L (8-16) L 10/08/19 10:26 BUN 38.0 mg/dl (7-18) H 10/08/19 10:26 Creatinine 0.9 mg/dl (0.55-1.3) 10/08/19 10:26 Est GFR (CKD-EPI)AfAm 94.48 10/08/19 10:26 Est GFR (CKD-EPI)NonAf 81.52 10/08/19 10:26 Random Glucose 193 mg/dl (74-106) H 10/08/19 10:26 Calcium 8.8 mg/dl (8.5-10) 10/08/19 10:26 Total Bilirubin 0.6 mg/dl (0.2-1) 10/08/19 10:26 AST 37 U/L (15-37) 10/08/19 10:26 ALT 35 U/L (13-61) 10/08/19 10:26 Alkaline Phosphatase 37 U/L (45-117) L 10/08/19 10:26 Creatine Kinase 45 U/L (26-308) 10/08/19 10:26 Troponin I < 0.03 ng/ml (0.00-0.05) 10/08/19 10:26 B-Natriuretic Peptide 562.9 pg/ml (5-450) H 10/08/19 10:26 Total Protein 5.6 g/dl (6.4-8.2) L 10/08/19 10:26 Albumin 3.3 g/dl (3.4-5.0) L 10/08/19 10:26 Stool Occult Blood Positive (NEGATIVE) 10/08/19 10:53 Influenza A (Rapid) Negative (Negative) 10/08/19 10:26 Influenza B (Rapid) Negative (Negative) 10/08/19 10:26 Blood Type O POSITIVE 10/08/19 11:49 Antibody Screen Negative 10/08/19 11:49 Crossmatch See Detail 10/08/19 11:49 Crossmatch IS Only See Detail 10/08/19 11:49 MIBI 02/20 (lexiscan): no STs, no isch; nl EF; mild LVE w/o TID Echo 01/20: TDS; nl LV/EF; nl RV; nl LA; mild /AI; nl LAP (no RVSP) echo 04/2017: tds; nl lv, rv tds, mod-sev mr, mod tr, nl rvsp, mild ar, mild ao root dil echo 09/2019: nl lv/rv, lae, mild mr, mild ar, mild-mod tr, nl rvsp CXR: clear lungs ecg: afib with rvr, nl qtc, no ischemic changes a/p: anemia, gib: -agree with prbcs -plans per GI -No cardiac contraindications to Endoscopy/FOC. -holding asa, eliquis pAfib: -was on toprol 100 bid, dilt 30 tid, and dig at home. currently bp on low side likely due to anemia/GIB so would hold toprol and dilt for now. HR should improve with prbcs. Can use prn iv lopressor or dilt if needed for rate control while npo and low bp. Monitor on tele. -was on eliquis, holding for now in setting of anemia, GIB hypertension -currently bp on low side likely due to anemia/GIB so would hold htn meds for now Pure hypercholesterolemia -statin stopped as outpt due to side effects cad, remote pci: -no signs acs -can hold asa for now in setting of GIB
[2019-10-08 16:53] LABS: BASO % 0.2 % (0-2.0); EOS % 0.4 % (0-4.5); HEMATOCRIT 27.1 % (35.4-49); LYMPH % 22.9 % (8-40); MCH 30.3 pg (25.7-33.7); MCHC 33.3 g/dl (32.0-35.9); MEAN CELL VOLUME 91.1 fl (80-96); MEAN PLT VOLUME 7.8 fl (7.5-11.1); MONO % 9.7 % (3.8-10.2); NEUT % 66.8 % (42.8-82.8); PLATELET COUNT 158 K/MM3 (134-434); RBC 2.98 M/mm3 (4.00-5.60); RDW 13.3 % (11.9-15.9); WHITE BLOOD COUNT 3.9 K/mm3 (4.0-10.8)
--- NOTE | 2019-10-08 17:13 | CONS ---
DATE OF CONSULTATION: 10/08/2019 REASON FOR CONSULTATION: Asked to evaluate this 79-year-old gentleman admitted with known and likely upper GI bleed. HISTORY OF PRESENT ILLNESS: The patient is a 79-year-old gentleman with a history of cardiac disease including atrial fibrillation on Eliquis and aspirin, congestive heart failure and COPD. The patient was admitted with increasing fatigue and some shortness of breath over several days with 2 days of black stool. He states that his appetite was somewhat diminished during this time as well. He denied any associated abdominal pain, nausea, or vomiting. He has no prior history of black stool or GI bleeding. The patient was seen in the emergency room, at which time he was noted to have a mild degree of hypotension with a systolic pressure of 90 to 100, and a tachycardia up to 120 to 130 which was treated initially with diltiazem. His initial hemoglobin and hematocrit included hemoglobin 9.9, hematocrit 30%, with an MCV of 90.7, white count of 5, and platelet count of 165,000. His BUN and creatinine were 38 and 0.9. His INR was 1.98. The patient currently is awaiting a blood transfusion and is receiving some IV fluids. His heart rate has again increased to 140, and he will likely be getting a 2nd dose of diltiazem. PHYSICAL EXAMINATION: General: He is a well-developed, pale-appearing gentleman with slightly pale conjunctiva. Lungs: Grossly clear lungs. Cardiovascular: Resting tachycardia. Abdomen: Soft abdomen, normoactive bowel sounds, no tenderness. Genitourinary: He has heme-positive black stool. LABORATORY: Laboratory tests as aforementioned. IMPRESSION: Patient with likely acute upper gastrointestinal bleeding due to a combination of aspirin and Eliquis. He currently has tachycardia and mild hypotension, although no further melena since earlier today. He is relatively stable, although he still has the blood pressure and heart rate as above and will be receiving packed red blood cells. He also has a moderately low serum sodium of 127 which may be related to some diuretics. At the present time he is on intravenous Protonix and decision regarding upper endoscopy is being deferred until after he is more stable from a cardiac standpoint. The patient will be kept n.p.o., on intravenous proton pump inhibitor therapy and monitored closely. He will require transfer to [facility] for further care and management, and case discussed with Dr. Shawn Amaral, gastrointestinal, at [facility], will assume his gastrointestinal care. Will follow as needed in the interim. LARA MEMBRENO M.D. [facility]/[id number]
[2019-10-08] MEDS ORDERED: COLCHICINE 0.6 MG CAP PO PRN (19:07)
[2019-10-08] MEDS ORDERED: PATIENT'S OWN MEDICATION (NON-FORMULARY) (Hydrochlorothiazide [Hydrochlorothiazide] 12.5 M PO SCH (19:15)
--- NOTE | 2019-10-08 19:24 | PDOC ---
*Physical Exam - Vital Signs Last Vital Signs Temp Pulse Resp BP Pulse Ox 97.6 F 109 H 18 99/55 L 96 10/08/19 18:10 10/08/19 18:10 10/08/19 18:10 10/08/19 18:10 10/08/19 18:10 ED Treatment Course - LABORATORY CBC & Chemistry Diagram: 10/08/19 22:00 10/08/19 10:26 - ADDITIONAL ORDERS Additional order review: Laboratory Results 10/08/19 10/08/19 10/08/19 11:49 11:47 10:53 PT with INR INR PTT (Actin FS) Sodium Potassium Chloride Carbon Dioxide Anion Gap BUN Creatinine Est GFR (CKD-EPI)AfAm Est GFR (CKD-EPI)NonAf Random Glucose Calcium Total Bilirubin AST ALT Alkaline Phosphatase Creatine Kinase Troponin I B-Natriuretic Peptide Total Protein Albumin Stool Occult Blood Positive Blood Type O POSITIVE O POSITIVE Antibody Screen Negative Negative Crossmatch See Detail Crossmatch IS Only See Detail 10/08/19 10/08/19 10/08/19 10:26 10:26 10:26 PT with INR INR PTT (Actin FS) Sodium Potassium Chloride Carbon Dioxide Anion Gap BUN Creatinine Est GFR (CKD-EPI)AfAm Est GFR (CKD-EPI)NonAf Random Glucose Calcium Total Bilirubin AST ALT Alkaline Phosphatase Creatine Kinase 45 Troponin I < 0.03 B-Natriuretic Peptide 562.9 H Total Protein Albumin Stool Occult Blood Blood Type Antibody Screen Crossmatch Crossmatch IS Only 10/08/19 10/08/19 10/08/19 10:26 10:26 10:26 PT with INR 21.9 H INR 1.98 H PTT (Actin FS) 34.9 Sodium 127 L Potassium 4.4 Chloride 95 L Carbon Dioxide 26 Anion Gap 6 L BUN 38.0 H Creatinine 0.9 Est GFR (CKD-EPI)AfAm 94.48 Est GFR (CKD-EPI)NonAf 81.52 Random Glucose 193 H Calcium 8.8 Total Bilirubin 0.6 AST 37 ALT 35 Alkaline Phosphatase 37 L Creatine Kinase Troponin I B-Natriuretic Peptide Total Protein 5.6 L Albumin 3.3 L Stool Occult Blood Blood Type Antibody Screen Crossmatch Crossmatch IS Only 10/08/19 10/08/19 16:45 10:26 RBC 2.98 L 3.31 L MCV 91.1 90.7 MCHC 33.3 33.0 RDW 13.3 12.9 MPV 7.8 7.8 Neutrophils % 66.8 74.4 Lymphocytes % 22.9 D 15.9 D Monocytes % 9.7 8.8 Eosinophils % 0.4 0.7 D Basophils % 0.2 0.2 - Medications Given in the ED: ED Medications Discontinued Medications Generic Name Dose Route Start Last Admin Trade Name Mauriceq PRN Reason Stop Dose Admin Diltiazem HCl 15 mg 10/08/19 11:05 10/08/19 11:10 Cardizem Injection - IVPUSH 10/08/19 11:06 15 mg ONCE ONE Administration Diltiazem HCl 15 mg 10/08/19 15:50 10/08/19 16:02 Cardizem Injection - IVPUSH 10/08/19 15:51 15 mg ONCE ONE Administration Sodium Chloride 500 mls @ 500 mls/hr 10/08/19 15:51 10/08/19 15:55 Normal Saline - IV 10/08/19 16:50 500 mls/hr ASDIR STA Administration Pantoprazole Sodium 40 mg 10/08/19 12:52 10/08/19 13:07 Protonix Iv IVPUSH 10/08/19 12:53 40 mg ONCE ONE Administration Pantoprazole Sodium 40 mg 10/08/19 13:45 10/08/19 13:52 Protonix Iv IVPUSH 10/08/19 13:46 40 mg ONCE ONE Administration ED Progress Note - Progress Note Progress Note: 10/08/19 19:27 Care of this patient received from Dr. Jones. Patient is comfortable without new complaints after 1 unit of packed red blood cells transfused. Lungs clear on auscultation Systolic BP currently 93 mmHg. Awaiting transfer to [address] [place] [address].500 ml NS IV while awaiting transport Discharge - Discharge Information Problems reviewed: Yes Clinical Impression/Diagnosis: Atrial fibrillation with rapid ventricular response, GI bleed Condition: Guarded - Follow up/Referral - Patient Discharge Instructions - Post Discharge Activity
[2019-10-08] MEDS ORDERED: METOPROLOL TARTRATE 5 MG/5 ML VIAL IVPUSH ONE (20:57)
[2019-10-08] MEDS: dilTIAZem HCL 30 MG TABLET (FP) PO SCH (21:08)
[2019-10-08] MEDS: GABAPENTIN 300 MG CAPSULE PO SCH (21:08)
--- NOTE | 2019-10-08 21:16 | CONSULT ---
Consultation: REQUESTING PROVIDER: [place] CONSULT REQUEST: We have been asked to medically evaluate this patient for ICU monitoring. HISTORY OF PRESENT ILLNESS: Patient with history of COPD, CHF, Afib on Eliquis and ASA (81mg),diabetes, hypertension, HLD, sciatica, BPH, gout, coronary disease presenting from [place] with black stools and weakness for 2 days. Pt explains that he thought he had the flu like his grandson and daughter; however, he was found to be hypotensive, in afib with RVR and with low blood count. At the time pt received NS bolus, cardizem IV and 1 unit PRBC and blood pressure improved with a map >65. Pt denies any episode of dark colored/ bloody stool since yesterday morni ng, abdominal pain or chest pain, F/C/N/V. We were consulted for hypotension prior to fluid and blood transfusion. Had a colonoscopy many years ago that was "normal." REVIEW OF SYSTEMS: CONSTITUTIONAL: Absent: fever, chills, diaphoresis, generalized weakness, malaise, loss of appetite, weight change HEENT: Absent: rhinorrhea, nasal congestion, throat pain, throat swelling, difficulty swallowing, mouth swelling, ear pain, eye pain, visual changes CARDIOVASCULAR: Absent: chest pain, syncope, palpitations, irregular heart rate, lightheadedness, peripheral edema RESPIRATORY: Absent: cough, shortness of breath, dyspnea with exertion, orthopnea, wheezing, stridor, hemoptysis GASTROINTESTINAL: Absent: abdominal pain, abdominal distension, nausea, vomiting, diarrhea, constipation, melena, hematochezia GENITOURINARY: Absent: dysuria, frequency, urgency, hesitancy, hematuria, flank pain, genital pain MUSCULOSKELETAL: Absent: myalgia, arthralgia, joint swelling, back pain, neck pain SKIN: Absent: rash, itching, pallor HEMATOLOGIC/IMMUNOLOGIC: Absent: easy bleeding, easy bruising, lymphadenopathy, frequent infections ENDOCRINE: Absent: unexplained weight gain, unexplained weight loss, heat intolerance, cold intolerance NEUROLOGIC: Absent: headache, focal weakness or paresthesias, dizziness, unsteady gait, seizure, mental status changes, bladder or bowel incontinence PSYCHIATRIC: Absent: anxiety, depression, suicidal or homicidal ideation, hallucinations. PHYSICAL EXAMINATION Vital Signs - 24 hr 10/08/19 10/08/19 10/08/19 09:40 11:02 11:15 Temperature 98.1 F Pulse Rate 57 L Pulse Rate [ 128 H 100 H Left Apical] Respiratory 18 20 19 Rate Blood Pressure 126/82 Blood Pressure 108/56 L 98/55 L [Left Arm] O2 Sat by Pulse 98 97 96 Oximetry (%) 10/08/19 10/08/19 10/08/19 12:09 13:07 14:59 Temperature 98 F Pulse Rate Pulse Rate [ 108 H 104 H 122 H Left Apical] Respiratory 18 20 20 Rate Blood Pressure Blood Pressure 96/53 L 96/58 L 98/54 L [Left Arm] O2 Sat by Pulse 96 98 96 Oximetry (%) 10/08/19 10/08/19 10/08/19 16:19 17:00 17:25 Temperature 97.8 F 98.3 F Pulse Rate Pulse Rate [ 104 H 101 H 105 H Left Apical] Respiratory 18 20 18 Rate Blood Pressure Blood Pressure 95/48 L 95/54 L 91/58 L [Left Arm] O2 Sat by Pulse 98 98 98 Oximetry (%) 10/08/19 10/08/19 10/08/19 17:45 18:10 19:10 Temperature 97.6 F 98 F Pulse Rate Pulse Rate [ 113 H 109 H 112 H Left Apical] Respiratory 20 18 20 Rate Blood Pressure Blood Pressure 90/59 L 99/55 L 93/60 [Left Arm] O2 Sat by Pulse 98 96 98 Oximetry (%) 10/08/19 19:28 Temperature 97.8 F Pulse Rate 101 H Pulse Rate [ Left Apical] Respiratory 20 Rate Blood Pressure 93/60 Blood Pressure [Left Arm] O2 Sat by Pulse Oximetry (%) GENERAL: Awake, alert, and fully oriented, in no acute distress. HEAD: Normal with no signs of trauma. EYES: Pupils equal, round and reactive to light, extraocular movements intact, sclera anicteric, conjunctiva clear. No lid lag. EARS, NOSE, THROAT: oropharynx clear without exudates. Moist mucous membranes. NECK: Normal range of motion, supple without lymphadenopathy, JVD, or masses. LUNGS: Breath sounds equal, clear to auscultation bilaterally. No wheezes, and no crackles. No accessory muscle use. HEART: tachy and irregular rate and rhythm, normal S1 and S2 without murmur, rub or gallop. ABDOMEN: Soft, nontender, obese, normoactive bowel sounds, no guarding, no rebound, no masses. No hepatomegaly or splenomegaly. MUSCULOSKELETAL: Normal range of motion at all joints. No bony deformities or tenderness. No CVA tenderness. UPPER EXTREMITIES: 2+ pulses, warm, well-perfused. No cyanosis. No clubbing. Cap refill <2 seconds. No peripheral edema. LOWER EXTREMITIES: 2+ pulses, warm, well-perfused. No calf tenderness. No peripheral edema. PSYCHIATRIC: Cooperative. Good eye contact. Appropriate mood and affect. SKIN: Warm, dry, normal turgor, no rashes or lesions noted. Laboratory Results - last 24 hr 10/08/19 10/08/19 10/08/19 10:26 10:26 10:26 WBC 5.0 RBC 3.31 L Hgb 9.9 L Hct 30.0 L D MCV 90.7 MCH 29.9 MCHC 33.0 RDW 12.9 Plt Count 165 MPV 7.8 Absolute Neuts (auto) 3.8 Neutrophils % 74.4 Lymphocytes % 15.9 D Monocytes % 8.8 Eosinophils % 0.7 D Basophils % 0.2 PT with INR INR PTT (Actin FS) 34.9 Sodium 127 L Potassium 4.4 Chloride 95 L Carbon Dioxide 26 Anion Gap 6 L BUN 38.0 H Creatinine 0.9 Est GFR (CKD-EPI)AfAm 94.48 Est GFR (CKD-EPI)NonAf 81.52 Random Glucose 193 H Calcium 8.8 Total Bilirubin 0.6 AST 37 ALT 35 Alkaline Phosphatase 37 L Creatine Kinase Troponin I B-Natriuretic Peptide Total Protein 5.6 L Albumin 3.3 L Stool Occult Blood Influenza A (Rapid) Influenza B (Rapid) Blood Type Antibody Screen Crossmatch Crossmatch IS Only 10/08/19 10/08/19 10/08/19 10:26 10:26 10:26 WBC RBC Hgb Hct MCV MCH MCHC RDW Plt Count MPV Absolute Neuts (auto) Neutrophils % Lymphocytes % Monocytes % Eosinophils % Basophils % PT with INR 21.9 H INR 1.98 H PTT (Actin FS) Sodium Potassium Chloride Carbon Dioxide Anion Gap BUN Creatinine Est GFR (CKD-EPI)AfAm Est GFR (CKD-EPI)NonAf Random Glucose Calcium Total Bilirubin AST ALT Alkaline Phosphatase Creatine Kinase Troponin I < 0.03 B-Natriuretic Peptide Total Protein Albumin Stool Occult Blood Influenza A (Rapid) Negative Influenza B (Rapid) Negative Blood Type Antibody Screen Crossmatch Crossmatch IS Only 10/08/19 10/08/19 10/08/19 10:26 10:26 10:53 WBC RBC Hgb Hct MCV MCH MCHC RDW Plt Count MPV Absolute Neuts (auto) Neutrophils % Lymphocytes % Monocytes % Eosinophils % Basophils % PT with INR INR PTT (Actin FS) Sodium Potassium Chloride Carbon Dioxide Anion Gap BUN Creatinine Est GFR (CKD-EPI)AfAm Est GFR (CKD-EPI)NonAf Random Glucose Calcium Total Bilirubin AST ALT Alkaline Phosphatase Creatine Kinase 45 Troponin I B-Natriuretic Peptide 562.9 H Total Protein Albumin Stool Occult Blood Positive Influenza A (Rapid) Influenza B (Rapid) Blood Type Antibody Screen Crossmatch Crossmatch IS Only 10/08/19 10/08/19 10/08/19 11:47 11:49 16:45 WBC 3.9 L RBC 2.98 L Hgb 9.0 L Hct 27.1 L MCV 91.1 MCH 30.3 MCHC 33.3 RDW 13.3 Plt Count 158 MPV 7.8 Absolute Neuts (auto) 2.5 Neutrophils % 66.8 Lymphocytes % 22.9 D Monocytes % 9.7 Eosinophils % 0.4 Basophils % 0.2 PT with INR INR PTT (Actin FS) Sodium Potassium Chloride Carbon Dioxide Anion Gap BUN Creatinine Est GFR (CKD-EPI)AfAm Est GFR (CKD-EPI)NonAf Random Glucose Calcium Total Bilirubin AST ALT Alkaline Phosphatase Creatine Kinase Troponin I B-Natriuretic Peptide Total Protein Albumin Stool Occult Blood Influenza A (Rapid) Influenza B (Rapid) Blood Type O POSITIVE O POSITIVE Antibody Screen Negative Negative Crossmatch See Detail Crossmatch IS Only See Detail Active Medications Generic Name Dose Route Start Last Admin Trade Name Freq PRN Reason Stop Dose Admin Albuterol Sulfate puff 10/08/19 22:00 Ventolin Hfa Inhaler - IH QID JOSELUIS Albuterol/Ipratropium amp 10/09/19 10:00 Duoneb - NEB DAILY JOSELUIS Diltiazem HCl 30 mg 10/08/19 22:00 10/08/19 21:08 Cardizem - PO 30 mg TID JOSELUIS Administration Finasteride 5 mg 10/09/19 10:00 Proscar - PO DAILY JOSELUIS Gabapentin 300 mg 10/08/19 22:00 10/08/19 21:08 Neurontin - PO 300 mg BID JOSELUIS Administration Pantoprazole Sodium 80 mg/ 100 mls @ 10 mls/hr 10/08/19 13:46 10/08/19 14:20 Sodium Chloride IVPB 10/11/19 13:46 10 mls/hr Q10H JOSELUIS Administration 8 MG/HR Mometasone Furoate 1 puff 10/08/19 22:00 Asmanex 110mcg - IH BID JOSELUIS Non-Formulary Medication 1 each 10/09/19 10:00 Fluticasone/Vilanterol [Breo Ellipta 200-25 Mcg Inh] IH DAILY JOSELUIS Non-Formulary Medication 2 tab 10/08/19 22:00 Magnesium [Magnesium] PO BID [facility] Lyzak-2-Ltio Ethyl Esters 1 gm 10/09/19 10:00 Lovaza - PO DAILY JOSELUIS Prednisone 20 mg 10/09/19 10:00 Deltasone - PO DAILY JOSELUIS Valsartan 320 mg 10/09/19 10:00 Diovan - PO DAILY [facility] ASSESSMENT/PLAN: Patient with history of COPD, CHF, Afib on Eliquis and ASA (81mg),CAD s/p Stent,diabetes, hypertension, HLD, sciatica, BPH, gout presenting with black stools and weakness for 2 days. Neuro: AAOx3 no active issue GI: - black stools for 2 days, hypotensive, low Hb, BUN/Cr 38/0.9, FOBT positive - most likely UGI in the setting of the black stools for 2 days, hypotensive, BUN/Cr 38/0.9 - s/p 1 unit PRBC - holding Eliquis and ASA - GI Dr Stack : Waiting; will also allow for anticoagulant effects of Eliquis to decrease. If stable , can have EGD in am or on Friday (if signs of further bleeding, would need emergent EGD). - NPO for now except for meds - monitor CV: - Hx of CHF, AFIB, CAD, DM, HTN - BP borderline. hold BP meds - Afib pt currently in RVR with HR >130. given home dose of diltiazem 30mg PO. cont dilt - Holding Eliquis and ASA in setting of GIB - Cardio Dr Treviño recjuana appreciated - no chest pain. cardiac profile sent by primary to r/o ACS Pulm: - Hx of COPD - flu negative - home Bronchodilators on board - Pt uses CPAP at home at night. CPAP ordered Renal : - BUN/Cr 38/0.9 - hyponatremic at 127 in jero - s/p NS bolus for hypotension. Pt also asymptomatic, will repeat CMP if sodium still low will replete with D5NS at low rate to correct - currently on no standing fluids in the setting of CHF hx Endo: - Hx of DM - ISS - BGM - hold home PO DM meds Heme/Onc: - GIB, black stools for 2 days - Hb 9.9 -> 9.0 - s/p 1 unit PRBC - f/u post transfusion CBC FEN: -no standing fluid - monitor lytes - NPO Dispo:Pt Bp has remained stable s/p fluid and PRBC. Pt will be monitored on tele Visit type - Emergency Visit Emergency Visit: Yes ED Registration Date: 10/08/19 Care time: The patient presented to the Emergency Department on the above date and was hospitalized for further evaluation of their emergent condition. - New Patient This patient is new to me today: Yes Date on this admission: 10/09/19 - Critical Care Critical Care patient: No ATTENDING PHYSICIAN STATEMENT I saw and evaluated the patient. I reviewed the resident's note and discussed the case with the resident. I agree with the resident's findings and plan as documented. SUBJECTIVE: OBJECTIVE: ASSESSMENT AND PLAN:
[2019-10-08] MEDS ORDERED: ALBUTEROL SO4 HFA INHALER IH PRN (22:00)
[2019-10-08] MEDS ORDERED: MAGNESIUM PO SCH (22:00)
[2019-10-08] MEDS ORDERED: DIGOXIN 0.125 MG TABLET (FP) PO SCH (22:00)
[2019-10-08 22:28] LABS: BASO % 0.6 % (0-2.0); EOS % 0.8 % (0-4.5); HEMATOCRIT 28.5 % (35.4-49); HEMOGLOBIN 9.7 GM/dL (11.7-16.9); LYMPH % 28.2 % (8-40); MCH 30.5 pg (25.7-33.7); MCHC 33.9 g/dl (32.0-35.9); MEAN CELL VOLUME 89.8 fl (80-96); MEAN PLT VOLUME 8.3 fl (7.5-11.1); MONO % 11.4 % (3.8-10.2); PLATELET COUNT 142 K/MM3 (134-434); RBC 3.17 M/mm3 (4.00-5.60); RDW 14.4 % (11.9-15.9); WHITE BLOOD COUNT 3.6 K/mm3 (4.0-10.0)
--- NOTE | 2019-10-08 22:39 | HP ---
Admitting History and Physical - Primary Care Physician PCP: Beck Mendez - Admission Chief Complaint: Cough, Generalized Weakness, Tarry Stools History of Present Illness: This is a 79 y/o man with a PMHx of HTN, HLD, CAD (s/p PCI), Afib (on Eliquis), COPD, EYAD (uses CPAP), DM, BPH, Gout. Who presented to [place] for productive cough with white phlegm, generalized weakness, and tarry stools x several days. Patient reports not "feeling like himself". Patient reports recent sick exposure- grandchild- Flu. (Rapid Influenza neg A+B in ED). Patient denies fever, chills, HOFFMAN, CP, palpitations, AP, N/V/D, constipation, hematochezia, hematuria, dysuria. Patient was found to be in Afib with RVR 130's given Cardizem IV in ED. Stool Occult +, patient was transferred to [facility], for closer monitoring and no available GI/OR services at [facility] this weekend. History Source: Patient Limitations to Obtaining History: No Limitations - Past Medical History Cardiovascular: Yes: AFIB, CAD, HTN, Hyperlipdemia Pulmonary: Yes: COPD Renal/: Yes: BPH Rheumatology: Yes: Gout Endocrine: Yes: Diabetes Mellitus - Past Surgical History Past Surgical History: Yes: Stent - Smoking History Smoking history: Former smoker Have you smoked in the past 12 months: No If you are a former smoker, when did you quit?: 16 - Alcohol/Substance Use Hx Alcohol Use: Yes (occasional) History of Substance Use: reports: None - Social History Usual Living Arrangement: Yes: With Child ADL: Independent Occupation: Retired History of Recent Travel: No Home Medications - Allergies Allergies/Adverse Reactions: Allergies Allergy/AdvReac Type Severity Reaction Status Date / Time No Known Allergies Allergy Verified 10/08/19 09:41 - Home Medications Home Medications: Ambulatory Orders Colchicine 0.6 mg PO HS PRN 05/06/17 Finasteride 5 mg PO DAILY 05/06/17 Apixaban [Eliquis] 5 mg PO BID 06/21/17 Ipratropium/Albuterol Sulfate [Iprat-Albut 0.5-3(2.5) mg/3 ml] 3 ml IH DAILY Digoxin [Lanoxin -] 0.125 mg PO HS 03/04/18 Gabapentin 300 mg PO BID 03/04/18 Fluticasone/Vilanterol [Breo Ellipta 200-25 Mcg INH] 1 each IH DAILY 03/05/18 Albuterol Sulfate [Proair Hfa] 8.5 gm IH QID 01/03/19 Diltiazem [Cardizem -] 30 mg PO TID 01/03/19 Metformin HCl [Glucophage] 500 mg PO DAILY 01/03/19 Olmesartan Medoxomil [Benicar] 40 mg PO DAILY 01/03/19 Tamsulosin HCl [Flomax] 0.4 mg PO DAILY 01/03/19 Metoprolol Succinate [Toprol Xl] 100 mg PO BID 08/22/19 Allopurinol [Zyloprim -] 200 mg PO DAILY 09/27/19 Icosapent Ethyl [Vascepa] 1 gm PO DAILY 09/27/19 Aspirin [Aspirin EC] 81 mg PO DAILY 10/08/19 Hydrochlorothiazide 12.5 mg PO ASDIR 10/08/19 Magnesium 2 tab PO BID 10/08/19 Mometasone Furoate [Asmanex 110Mcg -] 1 inh IH BID 10/08/19 Prednisone 20 mg PO DAILY 10/08/19 Family Medical History Family Hx Cancer: Father (Bladder Ca) Family Hx Cardiac Disorders: Mother ([place]), Brother (Valvular 58) Review of Systems - Review of Systems Constitutional: reports: Malaise, Weakness Eyes: reports: No Symptoms HENT: reports: No Symptoms Neck: reports: No Symptoms Cardiovascular: reports: No Symptoms Respiratory: reports: Cough Gastrointestinal: reports: Melena Genitourinary: reports: No Symptoms Breasts: reports: No Symptoms Reported Musculoskeletal: reports: No Symptoms Integumentary: reports: No Symptoms Neurological: reports: Weakness Endocrine: reports: No Symptoms Hematology/Lymphatic: reports: No Symptoms Psychiatric: reports: No Symptoms Pain Intensity: 0 Physical Examination Vital Signs: Vital Signs Temperature 97.8 F 10/08/19 19:28 Pulse Rate 101 H 10/08/19 19:28 Respiratory Rate 10/08/19 19:28 Blood Pressure 93/60 10/08/19 19:28 O2 Sat by Pulse Oximetry (%) 98 10/08/19 19:10 Constitutional: Yes: Well Nourished, No Distress, Calm Eyes: Yes: WNL, Conjunctiva Clear, EOM Intact, PERRL HENT: Yes: WNL, Atraumatic, Normocephalic Neck: Yes: WNL, Supple, Trachea Midline Cardiovascular: Yes: Pulse Irregular, S1, S2 Respiratory: Yes: WNL, Regular, CTA Bilaterally Gastrointestinal: Yes: WNL, Normal Bowel Sounds, Soft, Abdomen, Obese Renal/: Yes: WNL Breast(s): Yes: WNL Musculoskeletal: Yes: WNL Extremities: Yes: WNL Edema: No Peripheral Pulses WNL: Yes Neurological: Yes: WNL, Alert, Oriented, Cran Nerves II-XII Intact ...Motor Strength: WNL Psychiatric: Yes: WNL, Alert, Oriented Labs: CBC, BMP 10/08/19 22:00 10/08/19 10:26 Laboratory Results - last 24 hr 10/08/19 10/08/19 10/08/19 10:26 10:26 10:26 WBC 5.0 RBC 3.31 L Hgb 9.9 L Hct 30.0 L D MCV 90.7 MCH 29.9 MCHC 33.0 RDW 12.9 Plt Count 165 MPV 7.8 Absolute Neuts (auto) 3.8 Neutrophils % 74.4 Lymphocytes % 15.9 D Monocytes % 8.8 Eosinophils % 0.7 D Basophils % 0.2 Nucleated RBC % PT with INR INR PTT (Actin FS) 34.9 Sodium 127 L Potassium 4.4 Chloride 95 L Carbon Dioxide 26 Anion Gap 6 L BUN 38.0 H Creatinine 0.9 Est GFR (CKD-EPI)AfAm 94.48 Est GFR (CKD-EPI)NonAf 81.52 POC Glucometer Random Glucose 193 H Calcium 8.8 Total Bilirubin 0.6 AST 37 ALT 35 Alkaline Phosphatase 37 L Creatine Kinase Troponin I B-Natriuretic Peptide Total Protein 5.6 L Albumin 3.3 L Stool Occult Blood Influenza A (Rapid) Influenza B (Rapid) Blood Type Antibody Screen Crossmatch Crossmatch IS Only 10/08/19 10/08/19 10/08/19 10:26 10:26 10:26 WBC RBC Hgb Hct MCV MCH MCHC RDW Plt Count MPV Absolute Neuts (auto) Neutrophils % Lymphocytes % Monocytes % Eosinophils % Basophils % Nucleated RBC % PT with INR 21.9 H INR 1.98 H PTT (Actin FS) Sodium Potassium Chloride Carbon Dioxide Anion Gap BUN Creatinine Est GFR (CKD-EPI)AfAm Est GFR (CKD-EPI)NonAf POC Glucometer Random Glucose Calcium Total Bilirubin AST ALT Alkaline Phosphatase Creatine Kinase Troponin I < 0.03 B-Natriuretic Peptide Total Protein Albumin Stool Occult Blood Influenza A (Rapid) Negative Influenza B (Rapid) Negative Blood Type Antibody Screen Crossmatch Crossmatch IS Only 10/08/19 10/08/19 10/08/19 10:26 10:26 10:53 WBC RBC Hgb Hct MCV MCH MCHC RDW Plt Count MPV Absolute Neuts (auto) Neutrophils % Lymphocytes % Monocytes % Eosinophils % Basophils % Nucleated RBC % PT with INR INR PTT (Actin FS) Sodium Potassium Chloride Carbon Dioxide Anion Gap BUN Creatinine Est GFR (CKD-EPI)AfAm Est GFR (CKD-EPI)NonAf POC Glucometer Random Glucose Calcium Total Bilirubin AST ALT Alkaline Phosphatase Creatine Kinase 45 Troponin I B-Natriuretic Peptide 562.9 H Total Protein Albumin Stool Occult Blood Positive Influenza A (Rapid) Influenza B (Rapid) Blood Type Antibody Screen Crossmatch Crossmatch IS Only 10/08/19 10/08/19 10/08/19 11:47 11:49 16:45 WBC 3.9 L RBC 2.98 L Hgb 9.0 L Hct 27.1 L MCV 91.1 MCH 30.3 MCHC 33.3 RDW 13.3 Plt Count 158 MPV 7.8 Absolute Neuts (auto) 2.5 Neutrophils % 66.8 Lymphocytes % 22.9 D Monocytes % 9.7 Eosinophils % 0.4 Basophils % 0.2 Nucleated RBC % PT with INR INR PTT (Actin FS) Sodium Potassium Chloride Carbon Dioxide Anion Gap BUN Creatinine Est GFR (CKD-EPI)AfAm Est GFR (CKD-EPI)NonAf POC Glucometer Random Glucose Calcium Total Bilirubin AST ALT Alkaline Phosphatase Creatine Kinase Troponin I B-Natriuretic Peptide Total Protein Albumin Stool Occult Blood Influenza A (Rapid) Influenza B (Rapid) Blood Type O POSITIVE O POSITIVE Antibody Screen Negative Negative Crossmatch See Detail Crossmatch IS Only See Detail 10/08/19 10/08/19 22:00 22:30 WBC 3.6 L RBC 3.17 L Hgb 9.7 L Hct 28.5 L D MCV 89.8 MCH 30.5 MCHC 33.9 RDW 14.4 Plt Count 142 MPV 8.3 Absolute Neuts (auto) 2.2 Neutrophils % 59.0 Lymphocytes % 28.2 Monocytes % 11.4 H Eosinophils % 0.8 Basophils % 0.6 Nucleated RBC % 0 PT with INR INR PTT (Actin FS) Sodium Potassium Chloride Carbon Dioxide Anion Gap BUN Creatinine Est GFR (CKD-EPI)AfAm Est GFR (CKD-EPI)NonAf POC Glucometer 143 Random Glucose Calcium Total Bilirubin AST ALT Alkaline Phosphatase Creatine Kinase Troponin I B-Natriuretic Peptide Total Protein Albumin Stool Occult Blood Influenza A (Rapid) Influenza B (Rapid) Blood Type Antibody Screen Crossmatch Crossmatch IS Only Intake & Output 10/06/19 10/07/19 10/08/19 10/09/19 23:59 23:59 23:59 23:59 Weight 104.462 kg Current Medications Generic Name Dose Route Start Last Admin Trade Name Freq PRN Reason Stop Dose Admin Albuterol Sulfate 2 puff 10/08/19 22:00 Ventolin Hfa Inhaler - IH Q6H PRN SHORTNESS OF BREATH Albuterol/Ipratropium 1 amp 10/09/19 08:00 Duoneb - NEB RQID JOSELUIS Diltiazem HCl 30 mg 10/08/19 22:00 10/08/19 21:08 Cardizem - PO 30 mg TID JOSELUIS Administration Finasteride 5 mg 10/09/19 10:00 Proscar - PO DAILY JOSELUIS Gabapentin 300 mg 10/08/19 22:00 10/08/19 21:08 Neurontin - PO 300 mg BID JOSELUIS Administration Pantoprazole Sodium 80 mg/ 100 mls @ 10 mls/hr 10/08/19 13:46 10/08/19 23:50 Sodium Chloride IVPB 10/11/19 13:46 10 mls/hr Q10H JOSELUIS Administration 8 MG/HR Insulin Aspart 1 vial 10/09/19 07:00 Novolog Vial Sliding Scale - SQ ACHS JOSELUIS Protocol Mometasone Furoate 1 puff 10/08/19 22:00 10/08/19 23:17 Asmanex 110mcg - IH 1 puff BID JOSELUIS Administration Non-Formulary Medication 2 tab 10/08/19 22:00 Magnesium [Magnesium] PO BID JOSELUIS [id number] Ethyl Esters 1 gm 10/09/19 10:00 Lovaza - PO DAILY JOSELUIS Prednisone 20 mg 10/09/19 10:00 Deltasone - PO DAILY JOSELUIS Valsartan 320 mg 10/09/19 10:00 Diovan - PO DAILY JOSELUIS Imaging - Results Chest X-ray: Report Reviewed, Image Reviewed EKG: Image Reviewed Problem List - Problems (1) Atrial fibrillation with rapid ventricular response Assessment/Plan: Continue cardiac monitoring Cardiology following [id number] 5 EKG- afib with rvr Chest xray image no infiltrate no effusion Serial enzymes Continue home meds Code(s): I48.91 - UNSPECIFIED ATRIAL FIBRILLATION (2) GI bleed Assessment/Plan: per patient- having tarry stools x 2 days denies antacid use Stool Occult + PRBC x 1 given in ED Monitor CBC closely GI following Continue Protonix Drip NPO IVF Code(s): K92.2 - GASTROINTESTINAL HEMORRHAGE, UNSPECIFIED (3) BPH (benign prostatic hyperplasia) Assessment/Plan: stable Continue Proscar Code(s): N40.0 - BENIGN PROSTATIC HYPERPLASIA WITHOUT LOWER URINRY TRACT SYMP (4) COPD (chronic obstructive pulmonary disease) Assessment/Plan: stable No acute flare Duonebs Continue home meds O2 Code(s): J44.9 - CHRONIC OBSTRUCTIVE PULMONARY DISEASE, UNSPECIFIED (5) Diabetes mellitus Assessment/Plan: stable BGMs Hold ISS, until diet resumed Code(s): E11.9 - TYPE 2 DIABETES MELLITUS WITHOUT COMPLICATIONS (6) HLD (hyperlipidemia) Assessment/Plan: stable Continue home med Code(s): E78.5 - HYPERLIPIDEMIA, UNSPECIFIED (7) EYAD (obstructive sleep apnea) Assessment/Plan: CPAP HS 07/07 Code(s): G47.33 - OBSTRUCTIVE SLEEP APNEA (ADULT) (PEDIATRIC) (8) Hypertension Assessment/Plan: stable Monitor BP Continue home med Monitor renal function Code(s): I10 - ESSENTIAL (PRIMARY) HYPERTENSION Qualifiers: Hypertension type: essential hypertension Qualified Code(s): I10 - Essential (primary) hypertension Assessment/Plan This is a 79 y/o man with a PMHx of HTN, HLD, CAD (s/p PCI), Afib (on Eliquis), COPD, EYAD (uses CPAP), DM, BPH, Gout. Admitted to ICU for Afib with RVR, GI Bleed for further evaluation of their emergent condition. Plan: See Problem List FEN D5.45%@60ml/hr Replete lytes NPO DVT ppx OOB SCDs Hold AC secondary to GI Bleed Dispo: Requires Inpatient Care Visit type - Emergency Visit Emergency Visit: Yes ED Registration Date: 10/08/19 Care time: The patient presented to the Emergency Department on the above date and was hospitalized for further evaluation of their emergent condition. - New Patient This patient is new to me today: Yes Date on this admission: 10/08/19 - Critical Care Critical Care patient: Yes Total Critical Care Time (in minutes): 35 Critical Care Statement: The care of this patient involved high complexity decision making to prevent further life threatening deterioration of the patient 's condition and/or to evaluate & treat vital organ system(s) failure or risk of failure.
[2019-10-08 22:48] VITALS: BMI 36.1
[2019-10-08] MEDS: MOMETASONE FUROATE 110 MCG/IH INHALER IH SCH (23:17)
[2019-10-09] MEDS: dilTIAZem HCL 30 MG TABLET (FP) PO SCH ×2 (05:21→21:19)
[2019-10-09] MEDS: INSULIN SLIDING SCALE (NOVOLOG) 1 VIAL SQ SCH ×4 (06:47→21:23)
[2019-10-09] MEDS: DEXTROSE 5%-0.45% SALINE 1,000 ML IV SCH (06:47)
[2019-10-09] MEDS ORDERED: metFORMIN HCL 500 MG TABLET (FP) PO SCH (07:00)
[2019-10-09 07:10] LABS: BASO % 0.6 % (0-2.0); EOS % 1.7 % (0-4.5); HEMATOCRIT 29.1 % (35.4-49); HEMOGLOBIN 10.1 GM/dL (11.7-16.9); LYMPH % 28.3 % (8-40); MCHC 34.6 g/dl (32.0-35.9); MEAN CELL VOLUME 89.6 fl (80-96); MEAN PLT VOLUME 8.5 fl (7.5-11.1); MONO % 9.9 % (3.8-10.2); NEUT % 59.5 % (42.8-82.8); PLATELET COUNT 157 K/MM3 (134-434); RBC 3.25 M/mm3 (4.00-5.60); RDW 14.4 % (11.9-15.9); WHITE BLOOD COUNT 5.6 K/mm3 (4.0-10.0)
[2019-10-09 08:13] LABS: ALBUMIN 3.2 g/dl (3.4-5.0); ANION GAP 8 MMOL/L (8-16); BILIRUBIN,TOTAL 0.5 mg/dL (0.2-1); CALCIUM 8.8 mg/dL (8.5-10.1); CHLORIDE 101 mmol/L (98-107); CO2 28 mmol/L (21-32); GLUCOSE,RANDOM 154 mg/dL (74-106); MAGNESIUM 2.2 mg/dL (1.8-2.4); PHOSPHOROUS 3.8 mg/dL (2.5-4.9); POTASSIUM 4.1 mmol/L (3.5-5.1); SGOT/AST 51 U/L (15-37); SGPT/ALT 48 U/L (13-61); SODIUM 137 mmol/L (136-145); TOT PROT 5.9 g/dl (6.4-8.2)
[2019-10-09 08:39] LABS: ALK PHOS 44 U/L (45-117)
[2019-10-09] MEDS: ALBUTEROL SO4 2.5/IPRATROPIUM 0.5 INH SOL 3 ML VIAL.NEB. NEB SCH ×4 (08:40→21:40)
--- NOTE | 2019-10-09 08:49 | PN ---
Progress Note, Physician Chief Complaint: dark stools History of Present Illness: denies melena--stools at home were formed/hard and black. not taking iron at home. started Vascepa few weeks ago little cough, wheeze, sob --better than usual baseline on cp, palp, swelling ex cigs - Current Medication List Current Medications: Active Medications Albuterol Sulfate (Ventolin Hfa Inhaler -) 2 puff IH Q6H PRN PRN Reason: SHORTNESS OF BREATH Albuterol/Ipratropium (Duoneb -) 1 amp NEB RQID [facility] Diltiazem HCl (Cardizem -) 30 mg PO TID [facility] Last Admin: 10/09/19 05:21 Dose: 30 mg Finasteride (Proscar -) 5 mg PO DAILY [facility] Gabapentin (Neurontin -) 300 mg PO BID [facility] Last Admin: 10/08/19 21:08 Dose: 300 mg Pantoprazole Sodium 80 mg/ (Sodium Chloride) 100 mls @ 10 mls/hr IVPB Q10H [facility] Stop: 10/11/19 13:46 Last Admin: 10/08/19 23:50 Dose: 10 mls/hr Dextrose/Sodium Chloride (D5-1/2ns -) 1,000 mls @ 60 mls/hr IV ASDIR [facility] Last Admin: 10/09/19 06:47 Dose: 60 mls/hr Insulin Aspart (Novolog Vial Sliding Scale -) 1 vial SQ ACHS [facility]; Protocol Last Admin: 10/09/19 06:47 Dose: 2 units Mometasone Furoate (Asmanex 110mcg -) 1 puff IH BID [facility] Last Admin: 10/08/19 23:17 Dose: 1 puff Non-Formulary Medication (Magnesium [Magnesium]) 2 tab PO BID [facility] Chrty-8-Onyv Ethyl Esters (Lovaza -) 1 gm PO DAILY [facility] Prednisone (Deltasone -) 20 mg PO DAILY [facility] Valsartan (Diovan -) 320 mg PO DAILY [facility] - Objective Vital Signs: Vital Signs Temperature 97.3 F L 10/09/19 08:00 Pulse Rate 95 H 10/09/19 08:00 Respiratory Rate 18 10/09/19 08:00 Blood Pressure 136/97 10/09/19 08:00 O2 Sat by Pulse Oximetry (%) 100 10/09/19 08:00 Constitutional: Yes: No Distress, Calm Eyes: No: Sclera Icterus HENT: No: Nasal Congestion Cardiovascular: Yes: Pulse Irregular, S1, S2, Other (PMI non diplaced). No: Gallop, Murmur Respiratory: Yes: CTA Bilaterally. No: Accessory Muscle Use, Rales, Wheezes Gastrointestinal: Yes: Normal Bowel Sounds, Soft. No: Tenderness Musculoskeletal: Yes: Other (No kyphosis) Extremities: No: Cool, Cyanosis Edema: No Integumentary: No: Jaundice Neurological: Yes: Alert, Oriented (x3) Psychiatric: No: Agitated Labs: CBC, BMP 10/09/19 06:07 10/09/19 06:07 INR, PTT INR 1.98 (0.82-1.09) H 10/08/19 10:26 Assessment/Plan echo 09/2019: nl lv/rv, lae, mild mr, mild ar, mild-mod tr, nl rvsp CXR: clear lungs ecg: afib with rvr, nl qtc, no ischemic changes tele: a/p: anemia, gib: -presented with formed black stools, hgb 9s vs 14 in 02/24. + stool occult blood -s/p prbcs, hgb stable -monitor counts, plan per GI -no cardiac contraindications to Endoscopy/FOC--he is at acceptable CV risk as his AF and CAD are controlled and no signs of active dz process. -holding asa, eliquis pAfib: -was on toprol 100 bid, dilt 30 tid, and dig at home (chronic bronchitis/copd no worse on this bb regimen than prior baseline, intolerable pedal edema on higher dose CCB). -soft bp's here initially, holding bb/ccb--HR stable. monitor tele -holding eliquis until cleared by GI hypertension -currently bp on low side likely due to anemia/GIB so would hold htn meds for now cad, remote pci: -no signs acs -on rosuvastatin at home--resume upon discharge -can hold asa for now in setting of GIB copd/chronic bronchitis: -per primary viral URI: -sx's stable, reportedly flu swab neg recently
[2019-10-09] MEDS ORDERED: PT OWN MED DRAWER 7, Y5N ONE ×2 (09:25→20:35)
[2019-10-09] MEDS: MOMETASONE FUROATE 110 MCG/IH INHALER IH SCH ×2 (09:37→21:20)
[2019-10-09] MEDS: GABAPENTIN 300 MG CAPSULE PO SCH ×2 (09:39→21:19)
[2019-10-09] MEDS: FINASTERIDE 5 MG TABLET (FP) PO SCH (09:39)
[2019-10-09] MEDS: OMEGA-3 ACID ETHYL ESTERS (FATTY-ACIDS) 1 GM CAPSULE (FP) PO SCH (09:39)
[2019-10-09] MEDS ORDERED: PATIENT'S OWN MEDICATION (NON-FORMULARY) (Fluticasone/Vilanterol [Breo Ellipta 200-25 Mcg IH SCH (10:00)
[2019-10-09] MEDS ORDERED: VALSARTAN 160 MG TABLET (UD) PO SCH (10:00)
[2019-10-09] MEDS ORDERED: ALLOPURINOL 100 MG TABLET (FP) PO SCH (10:00)
[2019-10-09] MEDS ORDERED: predniSONE 20 MG TABLET (UD) PO SCH (10:00)
[2019-10-09] MEDS: PANTOPRAZOLE SODIUM 80 MG in SODIUM CHLORIDE 100 ML IVPB SCH ×3 (10:48→22:00)
--- NOTE | 2019-10-09 11:53 | PN.GI ---
GI Progress Note Subjective: Patent evaluated by Dr. Kurt Stack yesterday at [facility]. Patient actually is a patient of Dr. Stack who has performed Mr. Elmore's prior colonoscopies. Last melenic BM was 2 days ago. No BM today. No abdominal pain. Last took eliquis yesterday morning. - Objective Vital Signs: Vital Signs Temperature 97.1 F L 10/09/19 10:55 Pulse Rate 102 H 10/09/19 10:55 Respiratory Rate 18 10/09/19 10:55 Blood Pressure 94/76 10/09/19 10:55 O2 Sat by Pulse Oximetry (%) 100 10/09/19 09:56 Constitutional: Calm Eyes: No: Sclera Icterus Cardiovascular: Yes: Pulse Irregular Respiratory: Yes: CTA Bilaterally Gastrointestinal Inspection: No: Distention ...Auscultate: Yes: Normoactive Bowel Sounds ...Palpate: Yes: Soft. No: Hepatomegaly, Splenomegaly, Tenderness Edema: No (No LE edema) Labs: CBC, BMP 10/09/19 06:07 10/09/19 06:07 INR, PTT INR 1.98 (0.82-1.09) H 10/08/19 10:26 Problem List - Problems (1) Melena Assessment/Plan: No further episodes of melena, S/P 1 U PRBC, stable H/H Continue to monitor. NPO except meds, if no further bleeding, Clears for dinner Continue PPI drip @ 8mg/hr A. fib better rate controlled at tis point Plan for EGD friday, sooner if clinical condition warrants it. Discussed with patient and his son. Discussed potential risks of the procedure like but not limited to bleeding, perforation requiring surgery to repair, infection, sedation medication effects all of which could be potentially life threatening. He has agreed to the procedure. Code(s): K92.1 - MELENA
--- NOTE | 2019-10-09 15:32 | PN ---
Progress Note, Physician Chief Complaint: Melena Afib GI Bleed History of Present Illness: Previous notes and events reviewed awake and alert NAD sts having one small dark colored BM Hg 10.1 complain of feeling weak and dizzy at times tachycardic - Current Medication List Current Medications: Active Medications Albuterol Sulfate (Ventolin Hfa Inhaler -) 2 puff IH Q6H PRN PRN Reason: SHORTNESS OF BREATH Albuterol/Ipratropium (Duoneb -) 1 amp NEB RQID [facility] Last Admin: 10/09/19 13:00 Dose: 1 amp Diltiazem HCl (Cardizem -) 30 mg PO TID [facility] Last Admin: 10/09/19 05:21 Dose: 30 mg Finasteride (Proscar -) 5 mg PO DAILY [facility] Last Admin: 10/09/19 09:39 Dose: 5 mg Gabapentin (Neurontin -) 300 mg PO BID [facility] Last Admin: 10/09/19 09:39 Dose: 300 mg Pantoprazole Sodium 80 mg/ (Sodium Chloride) 100 mls @ 10 mls/hr IVPB Q10H [facility] Stop: 10/11/19 13:46 Last Admin: 10/09/19 10:48 Dose: 10 mls/hr Dextrose/Sodium Chloride (D5-1/2ns -) 1,000 mls @ 60 mls/hr IV ASDIR [facility] Last Admin: 10/09/19 06:47 Dose: 60 mls/hr Insulin Aspart (Novolog Vial Sliding Scale -) 1 vial SQ ACHS [facility]; Protocol Last Admin: 10/09/19 11:16 Dose: Not Given Mometasone Furoate (Asmanex 110mcg -) 1 puff IH BID [facility] Last Admin: 10/09/19 09:37 Dose: 1 puff Non-Formulary Medication (Magnesium [Magnesium]) 2 tab PO BID [facility] Nergs-5-Qmza Ethyl Esters (Lovaza -) 1 gm PO DAILY [facility] Last Admin: 10/09/19 09:39 Dose: 1 gm Prednisone (Deltasone -) 20 mg PO DAILY [facility] Last Admin: 10/09/19 09:38 Dose: 20 mg Valsartan (Diovan -) 320 mg PO DAILY [facility] Last Admin: 10/09/19 10:49 Dose: 320 mg - Objective Vital Signs: Vital Signs Temperature 97.4 F L 10/09/19 14:13 Pulse Rate 102 H 10/09/19 14:13 Respiratory Rate 17 10/09/19 14:13 Blood Pressure 96/37 L 10/09/19 14:13 O2 Sat by Pulse Oximetry (%) 100 10/09/19 09:56 Constitutional: Yes: No Distress, Calm Eyes: Yes: Conjunctiva Clear HENT: Yes: Atraumatic Cardiovascular: Yes: Tachycardia, Pulse Irregular Respiratory: Yes: Regular, CTA Bilaterally Gastrointestinal: Yes: Normal Bowel Sounds, Soft Musculoskeletal: Yes: Muscle Weakness Extremities: Yes: WNL Edema: No Neurological: Yes: Alert, Oriented Psychiatric: Yes: Alert, Oriented Labs: CBC, BMP 10/09/19 06:07 10/09/19 06:07 INR, PTT INR 1.98 (0.82-1.09) H 10/08/19 10:26 Problem List - Problems (1) Atrial fibrillation with rapid ventricular response Assessment/Plan: -Cardiology on board -Eliquis on hold due to melena -Cardizem for rate control -tele monitoring Code(s): I48.91 - UNSPECIFIED ATRIAL FIBRILLATION (2) GI bleed Code(s): K92.2 - GASTROINTESTINAL HEMORRHAGE, UNSPECIFIED (3) Melena Assessment/Plan: -Hg 10.1 -s/p 1U PRBC transfusion -Stool OB positive -GI on board -transfuse for Hg <8.0 -Pantoprazole drip -scheduled for EGD on friday -IV hydration -clear liquid diet -monitor Hg daily Code(s): K92.1 - MELENA (4) BPH (benign prostatic hyperplasia) Assessment/Plan: -Finasteride Code(s): N40.0 - BENIGN PROSTATIC HYPERPLASIA WITHOUT LOWER URINRY TRACT SYMP (5) COPD (chronic obstructive pulmonary disease) Assessment/Plan: -Bronchodilators -Asmanex -Prednisone daily -keep SpO2 >90% -O2 via NC prn for SOB -CXR shows mild hyperaeration with some linear scarring or atelectasis at the left base, normal heart, sclerotic knob, and normal eulogio, left base infiltrate as resolved Code(s): J44.9 - CHRONIC OBSTRUCTIVE PULMONARY DISEASE, UNSPECIFIED (6) Diabetes mellitus Assessment/Plan: -BGM ACHS -ISS -HgA1c Code(s): E11.9 - TYPE 2 DIABETES MELLITUS WITHOUT COMPLICATIONS (7) HLD (hyperlipidemia) Assessment/Plan: -Lovaza -lipid panel Code(s): E78.5 - HYPERLIPIDEMIA, UNSPECIFIED (8) Hypertension Assessment/Plan: -Diovan -monitor BP -hold if SBP <100 and/or DBP <60 Code(s): I10 - ESSENTIAL (PRIMARY) HYPERTENSION Qualifiers: Hypertension type: essential hypertension Qualified Code(s): I10 - Essential (primary) hypertension Assessment/Plan see problem list
--- NOTE | 2019-10-09 16:24 | EKG ---
Test Reason : Blood Pressure : / mmHG Vent. Rate : 132 BPM Atrial Rate : 129 BPM P-R Int : 000 ms QRS Dur : 084 ms QT Int : 294 ms P-R-T Axes : 000 036 221 degrees QTc Int : 435 ms ATRIAL FIBRILLATION WITH RAPID VENTRICULAR RESPONSE WITH PREMATURE VENTRICULAR OR ABERRANTLY CONDUCTED COMPLEXES CANNOT RULE OUT INFERIOR INFARCT , AGE UNDETERMINED NONSPECIFIC ST ABNORMALITY ABNORMAL ECG Confirmed by MD STAPLETON MOYSES ([id number]) on 10/09/2019 4:24:35 PM Referred By: KATELIN SAINI Confirmed By:NICHELLE STAPLETON MD
[2019-10-09] MEDS ORDERED: ALBUTEROL SO4 2.5/IPRATROPIUM 0.5 INH SOL 3 ML VIAL.NEB. NEB ONE (19:05)
[2019-10-10] MEDS: dilTIAZem HCL 30 MG TABLET (FP) PO SCH (05:02)
[2019-10-10] MEDS: PANTOPRAZOLE SODIUM 80 MG in SODIUM CHLORIDE 100 ML IVPB SCH ×4 (06:04→20:30)
[2019-10-10] MEDS: DEXTROSE 5%-0.45% SALINE 1,000 ML IV SCH ×2 (06:47→17:30)
[2019-10-10] MEDS: INSULIN SLIDING SCALE (NOVOLOG) 1 VIAL SQ SCH ×4 (07:11→21:19)
[2019-10-10] MEDS: ALBUTEROL SO4 2.5/IPRATROPIUM 0.5 INH SOL 3 ML VIAL.NEB. NEB SCH (07:12)
[2019-10-10 07:19] LABS: HEMATOCRIT 25.7 % (35.4-49); HEMOGLOBIN 8.8 GM/dL (11.7-16.9); MCH 30.8 pg (25.7-33.7); MCHC 34.3 g/dl (32.0-35.9); MEAN CELL VOLUME 89.6 fl (80-96); MEAN PLT VOLUME 8.2 fl (7.5-11.1); PLATELET COUNT 145 K/MM3 (134-434); RBC 2.87 M/mm3 (4.00-5.60); RDW 14.2 % (11.9-15.9); WHITE BLOOD COUNT 4.5 K/mm3 (4.0-10.0)
[2019-10-10 08:28] LABS: BILIRUBIN,TOTAL 0.3 mg/dL (0.2-1); BLOOD UREA NITROGEN 30.2 mg/dL (7-18); CALCIUM 8.8 mg/dL (8.5-10.1); CREATININE 0.8 mg/dL (0.55-1.3); TOT PROT 5.7 g/dl (6.4-8.2)
--- NOTE | 2019-10-10 08:32 | PN ---
Progress Note, Physician Chief Complaint: dark stool History of Present Illness: nervous that his HR is often rapid on the monitor nervous that he is being rx'd insulin here, not on this at home no sob/wheezing no palp no swelling no cp ex cigs - Current Medication List Current Medications: Active Medications Albuterol Sulfate (Ventolin Hfa Inhaler -) 2 puff IH Q6H PRN PRN Reason: SHORTNESS OF BREATH Albuterol/Ipratropium (Duoneb -) 1 amp NEB RQID [facility] Last Admin: 10/10/19 07:12 Dose: 1 amp Diltiazem HCl (Cardizem -) 30 mg PO TID [facility] Last Admin: 10/10/19 05:02 Dose: 30 mg Finasteride (Proscar -) 5 mg PO DAILY [facility] Last Admin: 10/09/19 09:39 Dose: 5 mg Gabapentin (Neurontin -) 300 mg PO BID [facility] Last Admin: 10/09/19 21:19 Dose: 300 mg Pantoprazole Sodium 80 mg/ (Sodium Chloride) 100 mls @ 10 mls/hr IVPB Q10H [facility] Stop: 10/11/19 13:46 Last Admin: 10/10/19 06:04 Dose: Not Given Dextrose/Sodium Chloride (D5-1/2ns -) 1,000 mls @ 60 mls/hr IV ASDIR [facility] Last Admin: 10/10/19 06:47 Dose: Not Given Insulin Aspart (Novolog Vial Sliding Scale -) 1 vial SQ ACHS [facility]; Protocol Last Admin: 10/10/19 07:11 Dose: 2 units Mometasone Furoate (Asmanex 110mcg -) 1 puff IH BID [facility] Last Admin: 10/09/19 21:20 Dose: 1 puff Non-Formulary Medication (Magnesium [Magnesium]) 2 tab PO BID [facility] Eyxua-4-Trif Ethyl Esters (Lovaza -) 1 gm PO DAILY [facility] Last Admin: 10/09/19 09:39 Dose: 1 gm Prednisone (Deltasone -) 20 mg PO DAILY [facility] Last Admin: 10/09/19 09:38 Dose: 20 mg Valsartan (Diovan -) 320 mg PO DAILY [facility] Last Admin: 10/09/19 10:49 Dose: 320 mg - Objective Vital Signs: Vital Signs Temperature 98.1 F 10/10/19 06:00 Pulse Rate 98 H 10/10/19 06:00 Respiratory Rate 17 10/10/19 06:00 Blood Pressure 113/52 L 10/10/19 06:00 O2 Sat by Pulse Oximetry (%) 99 10/10/19 07:52 Constitutional: Yes: No Distress, Calm Eyes: No: Sclera Icterus HENT: No: Nasal Congestion Cardiovascular: Yes: Pulse Irregular, Murmur (2/6 NOBLE rusb), S1, S2, Other (PMI non diplaced). No: Gallop Respiratory: Yes: CTA Bilaterally. No: Accessory Muscle Use, Rales, Wheezes Gastrointestinal: Yes: Normal Bowel Sounds, Soft. No: Tenderness Musculoskeletal: Yes: Other (No kyphosis) Extremities: No: Cyanosis Edema: No Integumentary: No: Jaundice Neurological: Yes: Alert, Oriented (x3) Psychiatric: No: Agitated Labs: CBC, BMP 10/10/19 06:34 10/10/19 06:34 INR, PTT INR 1.98 (0.82-1.09) H 10/08/19 10:26 Assessment/Plan echo 09/2019: nl lv/rv, lae, mild mr, mild ar, mild-mod tr, nl rvsp CXR: clear lungs ecg: afib with rvr, nl qtc, no ischemic changes tele: AF 100s-120s, rarely 130s-140s a/p: anemia, gib: -presented with formed black stools, hgb 9s vs 14 in 02/24. + stool occult blood -s/p prbcs, hgb 10-->8.8, suggests active bleeding -holding asa, eliquis -monitor counts, plan per GI -no cardiac contraindications to Endoscopy/FOC--he is at acceptable CV risk as his AF and CAD are controlled and no signs of active dz process. pAfib: -was on toprol 100 bid, dilt 30 tid, and dig at home (chronic bronchitis/copd no worse on this bb regimen than prior baseline, intolerable pedal edema on higher dose CCB). -soft bp's here initially, holding metoprolol, dilt...digoxin lapsed. HR rapid, will prevent completion of endoscopy tomorrow. resume metoprolol (change to tartrate for short acting) with PRN IV as needed. resume digoxin (at 0.25 for now). -hold diltiazem for now as his tachy responds better to BB than CCB, and BP remains well below outpt baseline, likely sec to active GI bleeding. (hold valsartan to allow bp to come up--did not receive yet today) -close monitoring of BP -holding eliquis until cleared by GI hypertension -currently bp on low side likely due to anemia/GIB -meds as above cad, remote pci: -no signs acs -on rosuvastatin at home--resume upon discharge -can hold asa for now in setting of GIB copd/chronic bronchitis: -per primary viral URI: -sx's stable, reportedly flu swab neg recently
--- NOTE | 2019-10-10 08:43 | PN ---
Progress Note, Physician Chief Complaint: AWAKE ALERT EVENTS AND NOTES REVIEWED PATIENT ANXIOUS - Current Medication List Current Medications: Active Medications Albuterol Sulfate (Ventolin Hfa Inhaler -) 2 puff IH Q6H PRN PRN Reason: SHORTNESS OF BREATH Albuterol/Ipratropium (Duoneb -) 1 amp NEB RQID [facility] Last Admin: 10/10/19 07:12 Dose: 1 amp Digoxin (Lanoxin -) 0.125 mg PO DAILY [facility] Diltiazem HCl (Cardizem -) 30 mg PO TID [facility] Last Admin: 10/10/19 05:02 Dose: 30 mg Finasteride (Proscar -) 5 mg PO DAILY [facility] Last Admin: 10/09/19 09:39 Dose: 5 mg Gabapentin (Neurontin -) 300 mg PO BID [facility] Last Admin: 10/09/19 21:19 Dose: 300 mg Pantoprazole Sodium 80 mg/ (Sodium Chloride) 100 mls @ 10 mls/hr IVPB Q10H [facility] Stop: 10/11/19 13:46 Last Admin: 10/10/19 06:04 Dose: Not Given Dextrose/Sodium Chloride (D5-1/2ns -) 1,000 mls @ 60 mls/hr IV ASDIR [facility] Last Admin: 10/10/19 06:47 Dose: Not Given Insulin Aspart (Novolog Vial Sliding Scale -) 1 vial SQ ACHS [facility]; Protocol Last Admin: 10/10/19 07:11 Dose: 2 units Mometasone Furoate (Asmanex 110mcg -) 1 puff IH BID [facility] Last Admin: 10/09/19 21:20 Dose: 1 puff Non-Formulary Medication (Magnesium [Magnesium]) 2 tab PO BID [facility] Ggpmk-7-Pjjh Ethyl Esters (Lovaza -) 1 gm PO DAILY [facility] Last Admin: 10/09/19 09:39 Dose: 1 gm Valsartan (Diovan -) 320 mg PO DAILY [facility] Last Admin: 10/09/19 10:49 Dose: 320 mg - Objective Vital Signs: Vital Signs Temperature 98.1 F 10/10/19 06:00 Pulse Rate 98 H 10/10/19 06:00 Respiratory Rate 17 10/10/19 06:00 Blood Pressure 113/52 L 10/10/19 06:00 O2 Sat by Pulse Oximetry (%) 99 10/10/19 07:52 Constitutional: Yes: Mild Distress Cardiovascular: Yes: Tachycardia, Pulse Irregular Respiratory: Yes: Cough, Diminished, Rhonchi Gastrointestinal: Yes: Soft, Abdomen, Obese Genitourinary: Yes: WNL Musculoskeletal: Yes: WNL Edema: No Wound/Incision: Yes: Clean/Dry Neurological: Yes: Other Psychiatric: Yes: Other Labs: CBC, BMP 10/10/19 06:34 10/10/19 06:34 INR, PTT INR 1.98 (0.82-1.09) H 10/08/19 10:26 Problem List - Problems (1) Anxiety Code(s): F41.9 - ANXIETY DISORDER, UNSPECIFIED (2) Atrial fibrillation with rapid ventricular response Code(s): I48.91 - UNSPECIFIED ATRIAL FIBRILLATION (3) GI bleed Code(s): K92.2 - GASTROINTESTINAL HEMORRHAGE, UNSPECIFIED (4) Melena Code(s): K92.1 - MELENA (5) Atrial fibrillation Code(s): I48.91 - UNSPECIFIED ATRIAL FIBRILLATION Qualifiers: Atrial fibrillation type: unspecified Qualified Code(s): I48.91 - Unspecified atrial fibrillation (6) BPH (benign prostatic hyperplasia) Code(s): N40.0 - BENIGN PROSTATIC HYPERPLASIA WITHOUT LOWER URINRY TRACT SYMP (7) COPD (chronic obstructive pulmonary disease) Code(s): J44.9 - CHRONIC OBSTRUCTIVE PULMONARY DISEASE, UNSPECIFIED (8) Gout attack Code(s): M10.9 - GOUT, UNSPECIFIED Qualifiers: Gout site: knee Gout etiology: drug-induced Laterality: left Qualified Code(s): 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 KLONOPIN STARTED FOR ANXIETY CARDIOLOGY F/U PATIENT IS MEDICALLY CLEAR FOR EGD BENEFIT OUTWEIGHS THE RISK STOP AC
[2019-10-10] MEDS ORDERED: PT OWN MED DRAWER 7, Y5N ONE ×2 (09:00→19:58)
[2019-10-10] MEDS: OMEGA-3 ACID ETHYL ESTERS (FATTY-ACIDS) 1 GM CAPSULE (FP) PO SCH (09:34)
[2019-10-10] MEDS: FINASTERIDE 5 MG TABLET (FP) PO SCH (09:34)
[2019-10-10] MEDS: GABAPENTIN 300 MG CAPSULE PO SCH ×2 (09:35→21:08)
[2019-10-10] MEDS: clonazePAM 0.5 MG TABLET PO PRN (09:39)
[2019-10-10] MEDS ORDERED: DIGOXIN 0.125 MG TABLET (FP) PO SCH ×2 (10:00)
[2019-10-10] MEDS ORDERED: DIGOXIN 0.125 MG TABLET (FP) PO ONE (10:15)
[2019-10-10] MEDS: MOMETASONE FUROATE 110 MCG/IH INHALER IH SCH ×2 (11:21→22:00)
[2019-10-10] MEDS: METOPROLOL TARTRATE 5 MG/5 ML VIAL IVPUSH PRN (11:58)
--- NOTE | 2019-10-10 13:27 | PN.GI ---
GI Progress Note Subjective: No acute events Scant formed dark BM yesterday, No BM today Rate control being attempted by cardiology - Objective Vital Signs: Vital Signs Temperature 98.1 F 10/10/19 06:00 Pulse Rate 118 H 10/10/19 11:58 Respiratory Rate 17 10/10/19 06:00 Blood Pressure 103/48 L 10/10/19 11:58 O2 Sat by Pulse Oximetry (%) 97 10/10/19 11:20 Constitutional: Calm Eyes: No: Sclera Icterus Cardiovascular: Yes: Pulse Irregular Respiratory: Yes: CTA Bilaterally Gastrointestinal Inspection: No: Distention ...Auscultate: Yes: Normoactive Bowel Sounds ...Palpate: Yes: Soft. No: Hepatomegaly, Splenomegaly, Tenderness ...Percussion: No: Tympanitic Neurological: Yes: Alert Labs: CBC, BMP 10/10/19 06:34 10/10/19 06:34 INR, PTT INR 1.98 (0.82-1.09) H 10/08/19 10:26 Problem List - Problems (1) Melena Assessment/Plan: No overt bleeding reported through the weekend with small BM reported earlier yesterday: Repeat CBC ordered for today PPI drip Clear liquids, NPO after midnight except meds for EGD 2/3 Consent obtained Code(s): K92.1 - MELENA
[2019-10-10] MEDS ORDERED: METOPROLOL TARTRATE 50 MG TABLET (FP) PO SCH (14:00)
--- NOTE | 2019-10-10 14:41 | EKG ---
Test Reason : Blood Pressure : / mmHG Vent. Rate : 117 BPM Atrial Rate : 133 BPM P-R Int : 000 ms QRS Dur : 100 ms QT Int : 320 ms P-R-T Axes : 000 018 253 degrees QTc Int : 446 ms ATRIAL FIBRILLATION WITH RAPID VENTRICULAR RESPONSE WITH PREMATURE VENTRICULAR OR ABERRANTLY CONDUCTED COMPLEXES CANNOT RULE OUT INFERIOR INFARCT (CITED ON OR BEFORE 08-OCT-2019) ABNORMAL ECG WHEN COMPARED WITH ECG OF 08-OCT-2019 10:43, NO SIGNIFICANT CHANGE WAS FOUND Confirmed by MD PIETER, NICHELLE ([id number]) on 10/10/2019 2:41:24 PM Referred By: JERZY CAMPBELL Confirmed By:NICHELLE STAPLETON MD
[2019-10-10 16:06] LABS: HEMATOCRIT 23.6 % (35.4-49); MCH 30.4 pg (25.7-33.7); MCHC 33.9 g/dl (32.0-35.9); MEAN CELL VOLUME 89.6 fl (80-96); MEAN PLT VOLUME 8.4 fl (7.5-11.1); PLATELET COUNT 154 K/MM3 (134-434); RBC 2.63 M/mm3 (4.00-5.60); RDW 14.3 % (11.9-15.9); WHITE BLOOD COUNT 4.8 K/mm3 (4.0-10.0)
[2019-10-10] MEDS: METOPROLOL TARTRATE 50 MG TABLET (FP) PO SCH ×3 (17:58→21:21)
[2019-10-10] MEDS ORDERED: INSULIN (NOVOLOG) ASPART 100 UNITS/ML 10ML VIAL ONE (19:59)
[2019-10-10 22:02] LABS: HEMATOCRIT 24.4 % (35.4-49); HEMOGLOBIN 8.2 GM/dL (11.7-16.9); MCH 30.3 pg (25.7-33.7); MCHC 33.5 g/dl (32.0-35.9); MEAN CELL VOLUME 90.6 fl (80-96); MEAN PLT VOLUME 8.2 fl (7.5-11.1); PLATELET COUNT 172 K/MM3 (134-434); RBC 2.69 M/mm3 (4.00-5.60); RDW 14.2 % (11.9-15.9); WHITE BLOOD COUNT 5.6 K/mm3 (4.0-10.0)
[2019-10-11] MEDS: PANTOPRAZOLE SODIUM 80 MG in SODIUM CHLORIDE 100 ML IVPB SCH ×2 (02:00→11:59)
[2019-10-11] MEDS: METOPROLOL TARTRATE 50 MG TABLET (FP) PO SCH ×3 (05:34→21:55)
[2019-10-11] MEDS: INSULIN SLIDING SCALE (NOVOLOG) 1 VIAL SQ SCH ×4 (06:03→22:03)
[2019-10-11 06:38] LABS: BASO % 0.4 % (0-2.0); EOS % 2.5 % (0-4.5); HEMATOCRIT 22.9 % (35.4-49); HEMOGLOBIN 7.8 GM/dL (11.7-16.9); LYMPH % 26.6 % (8-40); MCH 30.7 pg (25.7-33.7); MCHC 34.2 g/dl (32.0-35.9); MEAN CELL VOLUME 89.7 fl (80-96); MEAN PLT VOLUME 8.5 fl (7.5-11.1); MONO % 10.2 % (3.8-10.2); NEUT % 60.3 % (42.8-82.8); PLATELET COUNT 139 K/MM3 (134-434); RBC 2.55 M/mm3 (4.00-5.60); RDW 14.1 % (11.9-15.9); WHITE BLOOD COUNT 4.6 K/mm3 (4.0-10.0)
[2019-10-11 06:54] LABS: BLOOD UREA NITROGEN 22.7 mg/dL (7-18); CALCIUM 8.6 mg/dL (8.5-10.1); CREATININE 0.7 mg/dL (0.55-1.3); POTASSIUM 4.6 mmol/L (3.5-5.1)
--- NOTE | 2019-10-11 08:21 | PN ---
Progress Note, Physician Chief Complaint: PATIENT IN ICU AWAKE ALERT ANXIOUS - Current Medication List Current Medications: Active Medications Clonazepam (Klonopin -) 0.5 mg PO BID PRN PRN Reason: ANXIETY Last Admin: 10/10/19 09:39 Dose: 0.5 mg Digoxin (Lanoxin -) 0.25 mg PO DAILY [facility] Finasteride (Proscar -) 5 mg PO DAILY [facility] Last Admin: 10/10/19 09:34 Dose: 5 mg Gabapentin (Neurontin -) 300 mg PO BID [facility] Last Admin: 10/10/19 21:08 Dose: 300 mg Pantoprazole Sodium 80 mg/ (Sodium Chloride) 100 mls @ 10 mls/hr IVPB Q10H [facility] Stop: 10/11/19 13:46 Last Admin: 10/11/19 02:00 Dose: Not Given Dextrose/Sodium Chloride (D5-1/2ns -) 1,000 mls @ 60 mls/hr IV ASDIR [facility] Last Admin: 10/10/19 17:30 Dose: 60 mls/hr Insulin Aspart (Novolog Vial Sliding Scale -) 1 vial SQ ACHS [facility]; Protocol Last Admin: 10/11/19 06:03 Dose: Not Given Levalbuterol HCl (Xopenex) 0.63 mg IH Q8H PRN PRN Reason: ASTHMA Metoprolol Tartrate (Lopressor Injection -) 5 mg IVPUSH Q1H PRN PRN Reason: TACHYCARDIA Last Admin: 10/10/19 11:58 Dose: 5 mg Metoprolol Tartrate (Lopressor -) 50 mg PO TID [facility] Last Admin: 10/11/19 05:34 Dose: 50 mg Mometasone Furoate (Asmanex 110mcg -) 1 puff IH BID [facility] Last Admin: 10/10/19 22:00 Dose: 1 puff Non-Formulary Medication (Magnesium [Magnesium]) 2 tab PO BID [facility] Goyyc-3-Azcx Ethyl Esters (Lovaza -) 1 gm PO DAILY [facility] Last Admin: 10/10/19 09:34 Dose: 1 gm - Objective Vital Signs: Vital Signs Temperature 98 F 10/11/19 05:00 Pulse Rate 120 H 10/11/19 05:00 Respiratory Rate 22 H 10/11/19 05:00 Blood Pressure 112/52 L 10/11/19 05:00 O2 Sat by Pulse Oximetry (%) 98 10/11/19 08:13 Cardiovascular: Yes: Pulse Irregular Respiratory: Yes: Cough, Diminished Gastrointestinal: Yes: Soft Genitourinary: Yes: WNL Musculoskeletal: Yes: WNL Edema: Yes Edema: LLE: 1+ Integumentary: Yes: WNL Wound/Incision: Yes: Clean/Dry Neurological: Yes: WNL ...Motor Strength: WNL Psychiatric: Yes: Other Labs: CBC, BMP 10/11/19 06:00 10/11/19 05:20 INR, PTT INR 1.98 (0.82-1.09) H 10/08/19 10:26 Problem List - Problems (1) Anxiety Code(s): F41.9 - ANXIETY DISORDER, UNSPECIFIED (2) Atrial fibrillation with rapid ventricular response Code(s): I48.91 - UNSPECIFIED ATRIAL FIBRILLATION (3) GI bleed Code(s): K92.2 - GASTROINTESTINAL HEMORRHAGE, UNSPECIFIED (4) Melena Code(s): K92.1 - MELENA (5) Atrial fibrillation Code(s): I48.91 - UNSPECIFIED ATRIAL FIBRILLATION Qualifiers: Atrial fibrillation type: unspecified Qualified Code(s): I48.91 - Unspecified atrial fibrillation (6) BPH (benign prostatic hyperplasia) Code(s): N40.0 - BENIGN PROSTATIC HYPERPLASIA WITHOUT LOWER URINRY TRACT SYMP (7) COPD (chronic obstructive pulmonary disease) Code(s): J44.9 - CHRONIC OBSTRUCTIVE PULMONARY DISEASE, UNSPECIFIED (8) Gout attack Code(s): M10.9 - GOUT, UNSPECIFIED Qualifiers: Gout site: knee Gout etiology: drug-induced Laterality: left Qualified Code(s): 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
[2019-10-11] MEDS ORDERED: SODIUM CHLORIDE 500 ML IV STA (09:43)
[2019-10-11] MEDS: METOPROLOL TARTRATE 5 MG/5 ML VIAL IVPUSH PRN ×3 (09:58→18:37)
--- NOTE | 2019-10-11 10:02 | PN ---
Progress Note, Physician Chief Complaint: dark stool History of Present Illness: yest throughout the day HR controlled mainly 90s-110s with good response to prn lopressor 5mg dose. bp mostly 100s-110s, rare 90s. this am HR 120, sbp 90s. pt very anxious--rx'd anxiolytic. given fluid bolus to bring up bp and then lopressor 5mg IVP x 1 ordered hgb down further to 7.8 today he is about to be taken to endoscopy. denies cp, palp, sob, swelling ex cigs - Current Medication List Current Medications: Active Medications Clonazepam (Klonopin -) 0.5 mg PO BID PRN PRN Reason: ANXIETY Last Admin: 10/10/19 09:39 Dose: 0.5 mg Digoxin (Lanoxin -) 0.25 mg PO DAILY [facility] Finasteride (Proscar -) 5 mg PO DAILY [facility] Last Admin: 10/10/19 09:34 Dose: 5 mg Gabapentin (Neurontin -) 300 mg PO BID [facility] Last Admin: 10/10/19 21:08 Dose: 300 mg Pantoprazole Sodium 80 mg/ (Sodium Chloride) 100 mls @ 10 mls/hr IVPB Q10H [facility] Stop: 10/11/19 13:46 Last Admin: 10/11/19 02:00 Dose: Not Given Sodium Chloride (Normal Saline -) 500 mls @ 500 mls/hr IV ASDIR ST[facility] Stop: 10/11/19 10:42 Sodium Chloride (Normal Saline -) 1,000 mls @ 125 mls/hr IV ASDIR [facility] Insulin Aspart (Novolog Vial Sliding Scale -) 1 vial SQ ACHS [facility]; Protocol Last Admin: 10/11/19 06:03 Dose: Not Given Levalbuterol HCl (Xopenex) 0.63 mg IH Q8H PRN PRN Reason: ASTHMA Metoprolol Tartrate (Lopressor Injection -) 5 mg IVPUSH Q1H PRN PRN Reason: TACHYCARDIA Last Admin: 10/10/19 11:58 Dose: 5 mg Metoprolol Tartrate (Lopressor -) 50 mg PO TID [facility] Last Admin: 10/11/19 05:34 Dose: 50 mg Mometasone Furoate (Asmanex 110mcg -) 1 puff IH BID [facility] Last Admin: 10/10/19 22:00 Dose: 1 puff Non-Formulary Medication (Magnesium [Magnesium]) 2 tab PO BID [facility] [id number] Ethyl Esters (Lovaza -) 1 gm PO DAILY [facility] Last Admin: 10/10/19 09:34 Dose: 1 gm - Objective Vital Signs: Vital Signs Temperature 98 F 10/11/19 09:00 Pulse Rate 120 H 10/11/19 09:00 Respiratory Rate 23 H 10/11/19 09:00 Blood Pressure 99/61 10/11/19 09:00 O2 Sat by Pulse Oximetry (%) 96 10/11/19 09:00 Constitutional: Yes: No Distress, Calm Eyes: No: Sclera Icterus HENT: No: Nasal Congestion Cardiovascular: Yes: Pulse Irregular, S1, S2, Other (PMI non diplaced). No: Gallop, Murmur Respiratory: Yes: CTA Bilaterally. No: Accessory Muscle Use, Rales, Wheezes Gastrointestinal: Yes: Normal Bowel Sounds, Soft. No: Tenderness Musculoskeletal: Yes: Other (No kyphosis) Extremities: No: Cold, Cyanosis Edema: No Integumentary: No: Jaundice Neurological: Yes: Alert, Oriented (x3) Psychiatric: No: Agitated Labs: CBC, BMP 10/11/19 06:00 10/11/19 05:20 INR, PTT INR 1.98 (0.82-1.09) H 10/08/19 10:26 Assessment/Plan echo 09/2019: nl lv/rv, lae, mild mr, mild ar, mild-mod tr, nl rvsp CXR: clear lungs ecg: afib with rvr, nl qtc, no ischemic changes tele: AF 100s-120s, rarely 130s-140s a/p: anemia, gib: -presented with formed black stools, hgb 9s vs 14 in 02/24. + stool occult blood -s/p prbcs, hgb 10-->8.8-->7.8 suggests active bleeding -PRBCs per GI, crit care -fluids IV resuscitation started this AM -holding asa, eliquis -for GI scopes today: no cardiac contraindications to Endoscopy/FOC. once BP is optimized with fluids today, pt is at acceptable CV risk as his AF and CAD are controlled and no signs of active dz process--rec prn IV lopressor 2.5-5mg as BP allows pAfib: -was on toprol 100 bid, dilt 30 tid, and dig at home (chronic bronchitis/copd no worse on this bb regimen than prior baseline, intolerable pedal edema on higher dose CCB). -soft bp's here initially, holding metoprolol, dilt...digoxin lapsed. HR rapid, will prevent completion of endoscopy tomorrow. resume metoprolol (change to tartrate for short acting) with PRN IV as needed. resume digoxin (at 0.25 for now). -hold diltiazem for now as his tachy responds better to BB than CCB, and BP remains well below outpt baseline, likely sec to active GI bleeding. (hold valsartan to allow bp to come up--did not receive yet today) -close monitoring of BP -holding eliquis until cleared by GI hypertension -currently bp on low side likely due to anemia/GIB -meds as above cad, remote pci: -no signs acs -on rosuvastatin at home--resume upon discharge -can hold asa for now in setting of GIB copd/chronic bronchitis: -per primary viral URI: -sx's stable, reportedly flu swab neg recently
[2019-10-11] MEDS: SODIUM CHLORIDE 1,000 ML IV SCH (10:09)
[2019-10-11] MEDS: MOMETASONE FUROATE 110 MCG/IH INHALER IH SCH ×2 (10:12→21:55)
[2019-10-11] MEDS ORDERED: MIDAZOLAM HCL 2 MG/2 ML SINGLE DOSE VIAL ONE (10:45)
[2019-10-11] MEDS: FINASTERIDE 5 MG TABLET (FP) PO SCH (11:17)
[2019-10-11] MEDS: OMEGA-3 ACID ETHYL ESTERS (FATTY-ACIDS) 1 GM CAPSULE (FP) PO SCH (11:17)
[2019-10-11] MEDS: DIGOXIN 0.125 MG TABLET (FP) PO SCH (11:17)
[2019-10-11] MEDS: GABAPENTIN 300 MG CAPSULE PO SCH ×2 (11:17→21:55)
[2019-10-11] MEDS: DEXTROSE 5%-0.45% SALINE 1,000 ML IV SCH (12:18)
[2019-10-11 16:31] LABS: HEMATOCRIT 22.7 % (35.4-49); HEMOGLOBIN 7.7 GM/dL (11.7-16.9); MCH 30.7 pg (25.7-33.7); MCHC 33.8 g/dl (32.0-35.9); MEAN CELL VOLUME 90.9 fl (80-96); MEAN PLT VOLUME 8.6 fl (7.5-11.1); PLATELET COUNT 164 K/MM3 (134-434); RDW 14.3 % (11.9-15.9); WHITE BLOOD COUNT 4.4 K/mm3 (4.0-10.0)
[2019-10-11] MEDS ORDERED: guaiFENesin 200 MG/10 ML 10 ML UNIT-DOSE CUPS PO PRN (19:36)
[2019-10-11] MEDS: LEVALBUTEROL HCL 0.63 MG/3 ML VIAL.NEB. IH PRN (20:15)
[2019-10-11] MEDS: clonazePAM 0.5 MG TABLET PO PRN (21:55)
[2019-10-12] MEDS: MELATONIN 5 MG TABLETS PO PRN ×2 (01:31→21:39)
[2019-10-12] MEDS: SODIUM CHLORIDE 1,000 ML IV SCH (02:00)
[2019-10-12] MEDS: LEVALBUTEROL HCL 0.63 MG/3 ML VIAL.NEB. IH PRN ×2 (04:33→18:20)
[2019-10-12] MEDS: METOPROLOL TARTRATE 50 MG TABLET (FP) PO SCH ×3 (06:19→21:39)
[2019-10-12] MEDS: INSULIN SLIDING SCALE (NOVOLOG) 1 VIAL SQ SCH ×4 (06:27→21:40)
[2019-10-12 07:05] LABS: HEMATOCRIT 21.1 % (35.4-49); HEMOGLOBIN 7.1 GM/dL (11.7-16.9); MCH 30.8 pg (25.7-33.7); MCHC 33.7 g/dl (32.0-35.9); MEAN CELL VOLUME 91.3 fl (80-96); MEAN PLT VOLUME 9.1 fl (7.5-11.1); PLATELET COUNT 140 K/MM3 (134-434); RBC 2.31 M/mm3 (4.00-5.60); RDW 14.4 % (11.9-15.9); WHITE BLOOD COUNT 3.9 K/mm3 (4.0-10.0)
[2019-10-12 07:25] LABS: BLOOD UREA NITROGEN 17.3 mg/dL (7-18); CALCIUM 8.3 mg/dL (8.5-10.1); CREATININE 0.7 mg/dL (0.55-1.3); POTASSIUM 4.1 mmol/L (3.5-5.1)
--- NOTE | 2019-10-12 08:26 | PN ---
Progress Note, Physician Chief Complaint: AWAKE ALERT EVENTS REVIEWED FEELS GOOD WANTS TO GO HOME - Current Medication List Current Medications: Active Medications Clonazepam (Klonopin -) 0.5 mg PO BID PRN PRN Reason: ANXIETY Last Admin: 10/11/19 21:55 Dose: 0.5 mg Digoxin (Lanoxin -) 0.25 mg PO DAILY [facility] Last Admin: 10/11/19 11:17 Dose: Not Given Finasteride (Proscar -) 5 mg PO DAILY [facility] Last Admin: 10/11/19 11:17 Dose: Not Given Gabapentin (Neurontin -) 300 mg PO BID [facility] Last Admin: 10/11/19 21:55 Dose: 300 mg Guaifenesin (Robitussin -) 10 ml PO Q6H PRN PRN Reason: COUGH Last Admin: 10/11/19 20:05 Dose: 10 ml Sodium Chloride (Normal Saline -) 1,000 mls @ 125 mls/hr IV ASDIR [facility] Last Admin: 10/12/19 02:00 Dose: 125 mls/hr Insulin Aspart (Novolog Vial Sliding Scale -) 1 vial SQ ACHS [facility]; Protocol Last Admin: 10/12/19 06:27 Dose: Not Given Levalbuterol HCl (Xopenex) 0.63 mg IH Q8H PRN PRN Reason: ASTHMA Last Admin: 10/12/19 04:33 Dose: 0.63 mg Melatonin (Melatonin) 5 mg PO HS PRN PRN Reason: INSOMNIA Last Admin: 10/12/19 01:31 Dose: 5 mg Metoprolol Tartrate (Lopressor Injection -) 5 mg IVPUSH Q1H PRN PRN Reason: TACHYCARDIA Last Admin: 10/11/19 18:37 Dose: 5 mg Metoprolol Tartrate (Lopressor -) 50 mg PO TID [facility] Last Admin: 10/12/19 06:19 Dose: 50 mg Mometasone Furoate (Asmanex 110mcg -) 1 puff IH BID [facility] Last Admin: 10/11/19 21:55 Dose: 1 puff Non-Formulary Medication (Magnesium [Magnesium]) 2 tab PO BID [facility] [id number] Ethyl Esters (Lovaza -) 1 gm PO DAILY [facility] Last Admin: 10/11/19 11:17 Dose: Not Given Pantoprazole Sodium (Protonix -) 40 mg PO DAILY [facility] - Objective Vital Signs: Vital Signs Temperature 97.2 F L 10/12/19 05:00 Pulse Rate 100 H 10/12/19 05:00 Respiratory Rate 20 10/12/19 05:00 Blood Pressure 113/57 L 10/12/19 05:00 O2 Sat by Pulse Oximetry (%) 95 10/11/19 20:55 Constitutional: Yes: No Distress Cardiovascular: Yes: Pulse Irregular Respiratory: Yes: Diminished Gastrointestinal: Yes: Soft Genitourinary: Yes: WNL Musculoskeletal: Yes: WNL Extremities: Yes: WNL Edema: Yes Edema: LLE: Trace, RLE: Trace Peripheral Pulses WNL: Yes Integumentary: Yes: WNL Wound/Incision: Yes: Clean/Dry Neurological: Yes: WNL Psychiatric: Yes: Other Labs: CBC, BMP 10/12/19 05:30 10/12/19 05:30 INR, PTT INR 1.98 (0.82-1.09) H 10/08/19 10:26 Problem List - Problems (1) Anxiety Code(s): F41.9 - ANXIETY DISORDER, UNSPECIFIED (2) Atrial fibrillation with rapid ventricular response Code(s): I48.91 - UNSPECIFIED ATRIAL FIBRILLATION (3) GI bleed Code(s): K92.2 - GASTROINTESTINAL HEMORRHAGE, UNSPECIFIED (4) Melena Code(s): K92.1 - MELENA (5) Atrial fibrillation Code(s): I48.91 - UNSPECIFIED ATRIAL FIBRILLATION Qualifiers: Atrial fibrillation type: unspecified Qualified Code(s): I48.91 - Unspecified atrial fibrillation (6) BPH (benign prostatic hyperplasia) Code(s): N40.0 - BENIGN PROSTATIC HYPERPLASIA WITHOUT LOWER URINRY TRACT SYMP (7) COPD (chronic obstructive pulmonary disease) Code(s): J44.9 - CHRONIC OBSTRUCTIVE PULMONARY DISEASE, UNSPECIFIED (8) Gout attack Code(s): M10.9 - GOUT, UNSPECIFIED Qualifiers: Gout site: knee Gout etiology: drug-induced Laterality: left Qualified Code(s): 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
[2019-10-12] MEDS: FINASTERIDE 5 MG TABLET (FP) PO SCH (09:48)
[2019-10-12] MEDS: PANTOPRAZOLE 40 MG TABLET PO SCH (09:48)
[2019-10-12] MEDS: OMEGA-3 ACID ETHYL ESTERS (FATTY-ACIDS) 1 GM CAPSULE (FP) PO SCH (09:48)
[2019-10-12] MEDS: GABAPENTIN 300 MG CAPSULE PO SCH ×2 (09:48→21:39)
[2019-10-12] MEDS: DIGOXIN 0.125 MG TABLET (FP) PO SCH (09:49)
[2019-10-12] MEDS: MOMETASONE FUROATE 110 MCG/IH INHALER IH SCH ×2 (09:50→21:45)
--- NOTE | 2019-10-12 11:40 | PN ---
Progress Note (short form) - Note Progress Note: s: no chest pain, palps, dizziness, dyspnea Current Medications Clonazepam (Klonopin -) 0.5 mg PO BID PRN PRN Reason: ANXIETY Last Admin: 10/11/19 21:55 Dose: 0.5 mg Digoxin (Lanoxin -) 0.25 mg PO DAILY [facility] Last Admin: 10/12/19 09:49 Dose: 0.25 mg Finasteride (Proscar -) 5 mg PO DAILY [facility] Last Admin: 10/12/19 09:48 Dose: 5 mg Gabapentin (Neurontin -) 300 mg PO BID [facility] Last Admin: 10/12/19 09:48 Dose: 300 mg Guaifenesin (Robitussin -) 10 ml PO Q6H PRN PRN Reason: COUGH Last Admin: 10/11/19 20:05 Dose: 10 ml Insulin Aspart (Novolog Vial Sliding Scale -) 1 vial SQ ACHS [facility]; Protocol Last Admin: 10/12/19 06:27 Dose: Not Given Levalbuterol HCl (Xopenex) 0.63 mg IH Q8H PRN PRN Reason: ASTHMA Last Admin: 10/12/19 04:33 Dose: 0.63 mg Melatonin (Melatonin) 5 mg PO HS PRN PRN Reason: INSOMNIA Last Admin: 10/12/19 01:31 Dose: 5 mg Metoprolol Tartrate (Lopressor Injection -) 5 mg IVPUSH Q1H PRN PRN Reason: TACHYCARDIA Last Admin: 10/11/19 18:37 Dose: 5 mg Metoprolol Tartrate (Lopressor -) 50 mg PO TID [facility] Last Admin: 10/12/19 06:19 Dose: 50 mg Mometasone Furoate (Asmanex 110mcg -) 1 puff IH BID [facility] Last Admin: 10/12/19 09:50 Dose: 1 puff Non-Formulary Medication (Magnesium [Magnesium]) 2 tab PO BID [facility] [id number] Ethyl Esters (Lovaza -) 1 gm PO DAILY [facility] Last Admin: 10/12/19 09:48 Dose: 1 gm Pantoprazole Sodium (Protonix -) 40 mg PO DAILY [facility] Last Admin: 10/12/19 09:48 Dose: 40 mg Vital Signs Period Temp Pulse Resp BP Sys/Berumen Pulse Ox Last 24 Hr 97.2 F-98.4 F 100-145 18-22 100-137/46-70 95-97 Constitutional: Yes: No Distress, Calm Eyes: No: Sclera Icterus HENT: No: Nasal Congestion Cardiovascular: Yes: Pulse Irregular, S1, S2, Other (PMI non diplaced). No: Gallop, Murmur Respiratory: Yes: CTA Bilaterally. No: Accessory Muscle Use, Rales, Wheezes Gastrointestinal: Yes: Normal Bowel Sounds, Soft. No: Tenderness Musculoskeletal: Yes: Other (No kyphosis) Extremities: No: Cold, Cyanosis Edema: No Integumentary: No: Jaundice Neurological: Yes: Alert, Oriented (x3) Psychiatric: No: Agitated Assessment/Plan echo 09/2019: nl lv/rv, lae, mild mr, mild ar, mild-mod tr, nl rvsp CXR: clear lungs ecg: afib with rvr, nl qtc, no ischemic changes tele: AF 100s-120s, episodes 130s-140s a/p: anemia, gib: -presented with formed black stools, hgb 9s vs 14 in 02/24. + stool occult blood -s/p prbcs, hgb 10-->8.8-->7.8-->7.1 suggests active bleeding-s/p EGD - angioectasia of stomach -PRBCs per GI, primary -holding asa, eliquis pAfib: -was on toprol 100 bid, dilt 30 tid, and dig at home (chronic bronchitis/copd no worse on this bb regimen than prior baseline, intolerable pedal edema on higher dose CCB). -soft bp's here initially, holding metoprolol, dilt- digoxin lapsed - HR rapid, resumed metoprolol (change to tartrate for short acting) with PRN IV as needed. resumed digoxin (at 0.25 for now). -hold diltiazem for now as his tachy responds better to BB than CCB, and BP remains well below outpt baseline, likely sec to active GI bleeding -close monitoring of BP -holding eliquis until cleared by GI hypertension -currently bp on low side likely due to anemia/GIB -meds as above - holding valsartan cad, remote pci: -no signs acs -on rosuvastatin at home--resume upon discharge -can hold asa for now in setting of GIB copd/chronic bronchitis: -per primary viral URI: -sx's stable, reportedly flu swab neg recently
--- NOTE | 2019-10-12 16:32 | PN ---
Progress Note (short form) - Note Progress Note: No BM today, Hgb, however, is 7.1. BUN has now normalized. S/P EGD yesterday with APC therapy of actively bleeding ectasia. ? equilibration / dilutional as opposed to rebleeding. for 2 U PRBC today. If inappropriate response or overt bleeding, possible repeat EGD 10/13. Discussed with patient. Problem List - Problems (1) Melena Code(s): K92.1 - MELENA
[2019-10-12] MEDS: clonazePAM 0.5 MG TABLET PO PRN (21:39)
[2019-10-13] MEDS: METOPROLOL TARTRATE 50 MG TABLET (FP) PO SCH ×2 (06:12→13:42)
[2019-10-13] MEDS: INSULIN SLIDING SCALE (NOVOLOG) 1 VIAL SQ SCH ×2 (06:13→11:54)
[2019-10-13 06:29] LABS: HEMATOCRIT 26.5 % (35.4-49); HEMOGLOBIN 9.3 GM/dL (11.7-16.9); MCH 30.9 pg (25.7-33.7); MCHC 35.2 g/dl (32.0-35.9); MEAN CELL VOLUME 87.6 fl (80-96); MEAN PLT VOLUME 8.3 fl (7.5-11.1); PLATELET COUNT 169 K/MM3 (134-434); RBC 3.03 M/mm3 (4.00-5.60); RDW 14.8 % (11.9-15.9); WHITE BLOOD COUNT 5.1 K/mm3 (4.0-10.0)
[2019-10-13 06:55] LABS: CALCIUM 8.5 mg/dL (8.5-10.1); CREATININE 0.7 mg/dL (0.55-1.3); POTASSIUM 4.1 mmol/L (3.5-5.1)
[2019-10-13] MEDS ORDERED: PT OWN MED DRAWER 7, Y5N ONE ×2 (10:09→10:48)
[2019-10-13] MEDS: DIGOXIN 0.125 MG TABLET (FP) PO SCH (10:14)
[2019-10-13] MEDS: PANTOPRAZOLE 40 MG TABLET PO SCH (10:16)
[2019-10-13] MEDS: FINASTERIDE 5 MG TABLET (FP) PO SCH (10:17)
[2019-10-13] MEDS: OMEGA-3 ACID ETHYL ESTERS (FATTY-ACIDS) 1 GM CAPSULE (FP) PO SCH (10:17)
[2019-10-13] MEDS: GABAPENTIN 300 MG CAPSULE PO SCH (10:18)
[2019-10-13] MEDS: MOMETASONE FUROATE 110 MCG/IH INHALER IH SCH (10:21)
--- NOTE | 2019-10-13 11:08 | PN.GI ---
GI Progress Note Subjective: Pt seen/examined at bedside, sitting in chair, son also present at bedside, feeling well, reports formed black bm this am (seen in toilet appears as formed dark brown stool). Denies abdominal pain, n/v. Asking to eat. - Objective Vital Signs: Vital Signs Temperature 98.2 F 10/13/19 06:00 Pulse Rate 114 H 10/13/19 10:14 Respiratory Rate 20 10/13/19 10:00 Blood Pressure 102/59 L 10/13/19 10:00 O2 Sat by Pulse Oximetry (%) 100 10/13/19 09:05 Constitutional: Well Nourished, No Distress, Calm Cardiovascular: Yes: Pulse Irregular Respiratory: Yes: WNL, Regular, CTA Bilaterally ...Palpate: Yes: Other (Abd soft, nt, nd Stool seen in bathroom, formed dark brown, no blood) Labs: CBC, BMP 10/13/19 05:30 10/13/19 05:30 INR, PTT INR 1.98 (0.82-1.09) H 10/08/19 10:26 Problem List - Problems (1) Melena Assessment/Plan: 79yo male presenting with melena s/p EGD on 10/11 revealing actively bleeding gastric ectasia s/p APC. Hb now with appropriate response to PRBC, no overt bleeding (formed dark brown bm seen this am). -No urgency for repeat EGD at this time with stable Hb and absence of further overt bleeding -Continue to monitor Hb and for further bleeding -Repeat cbc at 6pm to ensure stable -Can start clear liquid diet -PPI daily -May expect some passage of old blood, however if decline in Hb and overt bleeding may consider repeat EGD with therapeutic intent at that time Discussed in detail with pt and pts son Code(s): K92.1 - MELENA
[2019-10-13 13:16] LABS: MCH 30.5 pg (25.7-33.7); MCHC 34.6 g/dl (32.0-35.9); MEAN CELL VOLUME 88.2 fl (80-96); MEAN PLT VOLUME 8.6 fl (7.5-11.1); PLATELET COUNT 207 K/MM3 (134-434); RBC 3.29 M/mm3 (4.00-5.60); WHITE BLOOD COUNT 6.5 K/mm3 (4.0-10.0)
--- NOTE | 2019-10-13 14:43 | PN ---
Progress Note (short form) - Note Progress Note: s: no chest pain, palps, dizziness, dyspnea Current Medications Generic Name Dose Route Start Last Admin Trade Name Freq PRN Reason Stop Dose Admin Clonazepam 0.5 mg 10/10/19 08:41 10/12/19 21:39 Klonopin - PO 0.5 mg BID PRN Administration ANXIETY Digoxin 0.25 mg 10/11/19 10:00 10/13/19 10:14 Lanoxin - PO 0.25 mg DAILY [facility] Administration Finasteride 5 mg 10/09/19 10:00 10/13/19 10:17 Proscar - PO 5 mg DAILY [facility] Administration Gabapentin 300 mg 10/08/19 22:00 10/13/19 10:18 Neurontin - PO 300 mg BID [facility] Administration Guaifenesin 10 ml 10/11/19 19:36 10/11/19 20:05 Robitussin - PO 10 ml Q6H PRN Administration COUGH Insulin Aspart 1 vial 10/09/19 07:00 10/13/19 11:54 Novolog Vial Sliding Scale - SQ Not Given ACHS [facility] Protocol Levalbuterol HCl 0.63 mg 10/10/19 08:43 10/12/19 18:20 Xopenex IH 0.63 mg Q8H PRN Administration ASTHMA Melatonin 5 mg 10/12/19 01:17 10/12/19 21:39 Melatonin PO 5 mg HS PRN Administration INSOMNIA Metoprolol Tartrate 5 mg 10/10/19 09:57 10/11/19 18:37 Lopressor Injection - IVPUSH 5 mg Q1H PRN Administration TACHYCARDIA Metoprolol Tartrate 50 mg 10/10/19 16:00 10/13/19 13:42 Lopressor - PO 50 mg TID [facility] Administration Mometasone Furoate 1 puff 10/08/19 22:00 10/13/19 10:21 Asmanex 110mcg - IH 1 puff BID [facility] Administration [id number]-[id number] Ethyl Esters 1 gm 10/09/19 10:00 10/13/19 10:17 Lovaza - PO 1 gm DAILY [facility] Administration Pantoprazole Sodium 40 mg 10/12/19 10:00 10/13/19 10:16 Protonix - PO 40 mg DAILY [facility] Administration Vital Signs Period Temp Pulse Resp BP Sys/Berumen Pulse Ox Last 24 Hr 97.3 F-98.2 F 98-115 20-22 102-130/36-72 95-100 Constitutional: Yes: No Distress, Calm Eyes: No: Sclera Icterus HENT: No: Nasal Congestion Cardiovascular: Yes: Pulse Irregular, S1, S2, Other (PMI non diplaced). No: Gallop, Murmur Respiratory: Yes: CTA Bilaterally. No: Accessory Muscle Use, Rales, Wheezes Gastrointestinal: Yes: Normal Bowel Sounds, Soft. No: Tenderness Extremities: No: Cold, Cyanosis Edema: No Integumentary: No: Jaundice Neurological: Yes: Alert, Oriented (x3) Psychiatric: No: Agitated CBC, BMP 10/13/19 12:36 10/13/19 05:30 Assessment/Plan echo 09/2019: nl lv/rv, lae, mild mr, mild ar, mild-mod tr, nl rvsp CXR: clear lungs ecg: afib with rvr, nl qtc, no ischemic changes tele: AF, rate ok a/p: anemia, gib: -presented with formed black stools, hgb 9s vs 14 in 02/24. + stool occult blood -s/p prbcs, hgb 10-->8.8-->7.8-->7.1 suggests active bleeding-s/p EGD - angioectasia of stomach -PRBCs per GI, primary -holding asa, eliquis pAfib: -was on toprol 100 bid, dilt 30 tid, and dig at home (chronic bronchitis/copd no worse on this bb regimen than prior baseline, intolerable pedal edema on higher dose CCB). -bp improved, can resume home rate meds upon dc -holding eliquis/asa until cleared by GI hypertension -bp improved, can resume home bp meds upon dc cad, remote pci: -no signs acs -on rosuvastatin at home--resume upon discharge -can hold asa for now in setting of GIB copd/chronic bronchitis: -per primary
--- NOTE | 2019-10-13 15:12 | DS ---
Physical Examination Vital Signs: Vital Signs Temperature 98.2 F 10/13/19 06:00 Pulse Rate 114 H 10/13/19 13:45 Respiratory Rate 20 10/13/19 13:45 Blood Pressure 116/72 10/13/19 13:45 O2 Sat by Pulse Oximetry (%) 100 10/13/19 09:05 Constitutional: Yes: No Distress Eyes: Yes: WNL HENT: Yes: WNL Neck: Yes: WNL Cardiovascular: Yes: Pulse Irregular Respiratory: Yes: WNL, Regular, Wheezes Gastrointestinal: Yes: WNL Musculoskeletal: Yes: WNL Extremities: Yes: WNL Edema: Yes Neurological: Yes: Other Psychiatric: Yes: Other Labs: CBC, BMP 10/13/19 12:36 10/13/19 05:30 Discharge Summary Problems reviewed: Yes Reason For Visit: A-FIB, GI BLEED Current Active Problems Anxiety (Acute) Atrial fibrillation with rapid ventricular response (Acute) GI bleed (Acute) Melena (Acute) Procedures: Principal: EGD Hospital Course: GI BLEED ADMITTED HAD EGD DONE AND TRANSFUSED PRBC SEE YOUR PMD IN 2 DAYS Condition: Improved - Instructions Diet, Activity, Other Instructions: SEE DR NOLAND IN 2-3 DAYS RESTART ELIQUIS TOMORROW SEE DR HATCH IN 1 WEEK VERY IMPORTANT TO HAVE YOUR LABS CHECKED IN 2-3 DAYS Referrals: Beck Noland MD [Primary Care Provider] - Disposition: HOME - Home Medications Comprehensive Discharge Medication List: Ambulatory Orders Colchicine 0.6 mg PO HS PRN 05/06/17 Finasteride 5 mg PO DAILY 05/06/17 Apixaban [Eliquis] 5 mg PO BID 06/21/17 Ipratropium/Albuterol Sulfate [Iprat-Albut 0.5-3(2.5) mg/3 ml] 3 ml IH DAILY Digoxin [Lanoxin -] 0.125 mg PO HS 03/04/18 Gabapentin 300 mg PO BID 03/04/18 Albuterol Sulfate [Proair Hfa] 8.5 gm IH QID 01/03/19 Metformin HCl [Glucophage] 500 mg PO DAILY 01/03/19 Tamsulosin HCl [Flomax] 0.4 mg PO DAILY 01/03/19 Allopurinol [Zyloprim -] 200 mg PO DAILY 09/27/19 Icosapent Ethyl [Vascepa] 1 gm PO DAILY 09/27/19 Magnesium 2 tab PO BID 10/08/19 Mometasone Furoate [Asmanex 110Mcg -] 1 inh IH BID 10/08/19 Melatonin 5 mg PO HS PRN tab 10/13/19 Metoprolol Tartrate [Lopressor -] 50 mg PO TID #90 tablet 10/13/19 Pantoprazole Sodium [Protonix -] 40 mg PO DAILY #30 tablet.ec 10/13/19
[2019-10-13 15:48] VITALS: BP 131/60; PULSE 96; TEMP 97.7
== END 2019-10-13 16:00 | disposition home or self-care (01) | DRG 378 ==
LOC: FER 09:40 → J2W 20:00
PROVIDERS: ADMIT Family Medicine; ATTEND Family Medicine
PROC: 30233N1 Transfusion of Nonautologous Red Blood Cells into Peripheral Vein, Percutaneous Approach (ICD-10-PCS; 2019-10-08)
PROC: 0W3P8ZZ Control Bleeding in Gastrointestinal Tract, Via Natural or Artificial Opening Endoscopic (ICD-10-PCS; principal; 2019-10-11 10:00)
DX: K31.811 Angiodysplasia of stomach and duodenum with bleeding (principal); E87.1 Hypo-osmolality and hyponatremia; Z79.01 Long term (current) use of anticoagulants; J44.9 Chronic obstructive pulmonary disease, unspecified; I11.0 Hypertensive heart disease with heart failure; I50.9 Heart failure, unspecified; E11.9 Type 2 diabetes mellitus without complications; M54.30 Sciatica, unspecified side; E78.5 Hyperlipidemia, unspecified; N40.0 Benign prostatic hyperplasia without lower urinary tract symptoms; I25.10 Atherosclerotic heart disease of native coronary artery without angina pectoris; Z79.84 Long term (current) use of oral hypoglycemic drugs; R00.0 Tachycardia, unspecified; I95.9 Hypotension, unspecified; D64.9 Anemia, unspecified; E78.00 Pure hypercholesterolemia, unspecified; G47.33 Obstructive sleep apnea (adult) (pediatric); I48.0 Paroxysmal atrial fibrillation; J06.9 Acute upper respiratory infection, unspecified; F41.9 Anxiety disorder, unspecified
CPT/HCPCS: 36415; 36430; 36511; 71046-TC-FY; 80048; 80053; 80061; 82272; 82550; 82962; 83036; 83721; 83735; 83880; 84100; 84443; 84484; 85025; 85027; 85610; 85730; 86850; 86900; 86901; 86922; 87804; 93005; 93010; 93308; 94640; 94660; 99285-25; J7030; P9038; P9058

== ENCOUNTER 2019-10-15 09:24 | Emergency (ER) | payer OTHER, MEDICARE ==
[2019-10-15 09:45] VITALS: TEMP 98; BMI 34.9
--- NOTE | 2019-10-15 10:18 | PDOC ---
History of Present Illness - General Chief Complaint: Edema Stated Complaint: SWOLLEN LEGS Time Seen by Provider: 10/15/19 10:04 History Source: Patient Exam Limitations: No Limitations - History of Present Illness Initial Comments: 10/15/19 10:17 79 yo male pmh COPD, CHF, Afib (not currently on diuretics, AC or ASA due to recent GI bleed) presents to the ED for R leg swelling and pain. Pt DC from [facility] 2 days ago after a GI bleed likely related to Eliquis, AC and ASA stopped. Pt reports RLE swelling and pain to his medial thigh. Pt has no hx of blood clots, denies CP, SOB, back pain, abdominal pain, changes in bowel or bladder habits Past History - Past Medical History Allergies/Adverse Reactions: Allergies Allergy/AdvReac Type Severity Reaction Status Date / Time No Known Allergies Allergy Verified 10/15/19 09:38 Home Medications: Ambulatory Orders Colchicine 0.6 mg PO HS PRN 05/06/17 Finasteride 5 mg PO DAILY 05/06/17 Ipratropium/Albuterol Sulfate [Iprat-Albut 0.5-3(2.5) mg/3 ml] 3 ml IH DAILY Digoxin [Lanoxin -] 0.125 mg PO HS 03/04/18 Gabapentin 300 mg PO BID 03/04/18 Albuterol Sulfate [Proair Hfa] 8.5 gm IH QID 01/03/19 Metformin HCl [Glucophage] 500 mg PO DAILY 01/03/19 Tamsulosin HCl [Flomax] 0.4 mg PO BID 01/03/19 Allopurinol [Zyloprim -] 200 mg PO DAILY 09/27/19 Magnesium 2 tab PO BID 10/08/19 Mometasone Furoate [Asmanex 110Mcg -] 1 inh IH BID 10/08/19 Melatonin 5 mg PO HS PRN tab 10/13/19 Metoprolol Tartrate [Lopressor -] 50 mg PO TID #90 tablet 10/13/19 Pantoprazole Sodium [Protonix -] 40 mg PO DAILY #30 tablet.ec 10/13/19 Hydrochlorothiazide [Hctz -] 12.5 mg PO DAILY #7 cap 10/15/19 Anemia: No Asthma: No Cancer: No Cardiac Disorders: Yes (atrial fibrillation-ablation) CVA: No COPD: Yes CHF: (in 2017) Dementia: No Diabetes: Yes GI Disorders: No Disorders: Yes (prostatic hypertrophy) HTN: Yes Hypercholesterolemia: Yes Liver Disease: No Seizures: No Thyroid Disease: No Other medical history: GI bleed - Surgical History Cardiac Surgery: Yes (stent 2017) - Psycho Social/Smoking Cessation Hx Smoking History: Never smoked Have you smoked in the past 12 months: No If you are a former smoker, when did you quit?: 16 'Breaking Loose' booklet given: 10/08/19 Hx Alcohol Use: No Drug/Substance Use Hx: No Substance Use Type: Alcohol Hx Substance Use Treatment: No Review of Systems - Review of Systems Constitutional: No: Chills, Fever Respiratory: No: Shortness of Breath Cardiac (ROS): No: Chest Pain, Edema ABD/GI: No: Constipated, Diarrhea, Nausea, Vomiting : No: Burning, Dysuria, Flank Pain, Hematuria Musculoskeletal: No: Back Pain Integumentary: Yes: Other (RLE swelling). No: Bruising, Change in Color Neurological: No: Headache, Weakness *Physical Exam - Vital Signs Last Vital Signs Temp Pulse Resp BP Pulse Ox 98.0 F 100 H 18 168/81 98 10/15/19 09:38 10/15/19 09:38 10/15/19 09:38 10/15/19 09:38 10/15/19 09:38 - Physical Exam General Appearance: Yes: Nourished, Appropriately Dressed. No: Apparent Distress HEENT: positive: EOMI Neck: positive: Supple. negative: Carotid bruit Respiratory/Chest: positive: Lungs Clear, Normal Breath Sounds. negative: Respiratory Distress, Accessory Muscle Use, Crackles, Rales, Rhonchi, Stridor, Wheezing Cardiovascular: positive: Regular Rhythm, S1, S2, Tachycardia. negative: Edema , JVD, Murmur Vascular Pulses: Dorsalis-Pedis (R): 3+, Doralis-Pedis (L): 3+ Gastrointestinal/Abdominal: positive: Flat, Soft. negative: Pulsatile Mass, Distended, Guarding, Rebound, Tenderness Musculoskeletal: negative: CVA Tenderness Extremity: positive: Normal Capillary Refill, Pedal Edema, Calf Tenderness, Other (4+ pitting) Integumentary: positive: Normal Color, Dry, Warm Neurologic: positive: financial management consultant II-XII NML intact, Fully Oriented, Alert, Normal Mood/ Affect, Normal Response, Motor Strength 01/10 ED Treatment Course - LABORATORY CBC & Chemistry Diagram: 10/15/19 10:22 10/15/19 10:22 Medical Decision Making - Medical Decision Making 10/15/19 12:48 79 yo male pmh COPD, CHF, Afib (not currently on diuretics, AC or ASA due to recent GI bleed) presents to the ED for R leg swelling and pain. Pt DC from [facility] 2 days ago after a GI bleed likely related to Eliquis, AC and ASA stopped. Pt reports RLE swelling and pain to his medial thigh. Pt has no hx of blood clots, denies CP, SOB, back pain, abdominal pain, changes in bowel or bladder habits Vitals show HR 100 otherwise wnl, will reassess after pain control Likely DVT, Duplex pending Denies symptoms of PE labs show no change in h/h, stable and no dark stools 10/15/19 15:42 Pt had some improvement after toradol and able to transfer. Pt requesting DC home Duplex neg for DVT Dr. Treviño in the ED, covers for Dr. Butt, states pt can be restarted on HCTZ and has a f/u appointment 10/21/2019 Pt will continue taking OTC tylenol for pain control, elevate and ice his leg along with HCTZ Pt safe for DC home Discharge - Discharge Information Problems reviewed: Yes Clinical Impression/Diagnosis: Leg swelling Condition: Stable Disposition: HOME - Admission No - Follow up/Referral Referrals: Beck Mendez MD [Primary Care Provider] - - Patient Discharge Instructions Patient Printed Discharge Instructions: DI for Peripheral Edema, Unilateral Additional Instructions: Please make it to all of your appointments and discuss blood thinners and water pills with your primary doctors. Please elevate your leg, use over the counter tylenol and use ice to reduce pain and swelling. Do not use NSAID medications including Ibuprofen. Return to the ER for new or concerning symptoms including but not limited to: shortness of breath, chest pain. Thank you - Post Discharge Activity
--- NOTE | 2019-10-15 10:37 | PDOC ---
Documentation entered by Ezra Ferrera SCRIBE, acting as scribe for Todd Perez MD. Todd Perez MD: This documentation has been prepared by the Maisha bell Nirvannie, SCRIBE, under my direction and personally reviewed by me in its entirety. I confirm that the documentation accurately reflects all work, treatment, procedures, and medical decision making performed by me. Attending Attestation - Resident Resident Name: Dioni Luevano - ED Attending Attestation I have performed the following: I have examined & evaluated the patient, The case was reviewed & discussed with the resident, I agree w/resident's findings & plan, Exceptions are as noted - HPI HPI: 10/15/19 10:26 79y M hx of afib (formerly on eliquis, dc after last hospitalization for GIB), COPD, CHF, DM, HTN, HL, gout, CAD Presents with complaint of right leg swelling And proximal leg pain. The patient was recently admitted for evaluation of GI bleed including received endoscopy with multiple med chnages (dc eliquis, dc lasix) - States that during towards the end of his hospitalization he notes increased swelling of his leg also had some cramping type pain in the upper right leg. Then the patient notes that the pain is gotten worse and the swelling is gotten worse. The patient denies any other associated symptoms including Chest pain, hemoptysis, new dyspnea on exertion (at baseline), Calf pain back pain, palpitations, lightheadedness, dizziness. The patient denies any History of dark or red stool. Pt also notes he was suppose to have a repeat CBC PCP: Dr. Mendez - Physicial Exam PE: 10/15/19 10:36 Exam: GENERAL: The patient is awake, alert, and fully oriented, Nontoxic - in no acute distress. HEAD: Normocephalic, atraumatic. EYES: extraocular movements intact, sclera anicteric, conjunctiva clear. ENT: Normal voice, Moist mucous membranes. NECK: Normal range of motion, supple LUNGS: Breath sounds equal, clear to auscultation bilaterally. No wheezes, no rhonchi, no rales. HEART: Irregularly irregular, no murmers ABDOMEN: Soft, nontender, No guarding, no rebound. No CVA tenderness EXTREMITIES: Normal range of motion, b/l LE pitting edema R>L no calf tenderness, neg homans NEUROLOGICAL: No facial assymetry, Normal speech, PSYCH: Normal mood, normal affect. SKIN: Warm, Dry, normal turgor, - Medical Decision Making 10/15/19 10:36 Differential for the patient's symptoms includes DVT, fluid retention secondary to dc Lasix. No clinical signs to suggest infection as there is no erythema, warmth, induration No clinical signs or symptoms suggestive of of PE. will also check his labs to screen for anemia 10/15/19 12:22 US negative for dvt. likely fluid retention labs reviewed- hbg is baseline from discharge. no elevated bun to suggest GIB will give pt lasix will dc the pt withoutpatient management and pmd fu return precautiosn were discussed
[2019-10-15 10:57] LABS: BASO % 0.5 % (0-2.0); EOS % 0.7 % (0-4.5); HEMATOCRIT 28.3 % (35.4-49); HEMOGLOBIN 9.6 GM/dL (11.7-16.9); LYMPH % 14.8 % (8-40); MCH 30.1 pg (25.7-33.7); MCHC 33.8 g/dl (32.0-35.9); MEAN CELL VOLUME 88.9 fl (80-96); MEAN PLT VOLUME 8.5 fl (7.5-11.1); MONO % 11.1 % (3.8-10.2); NEUT % 72.9 % (42.8-82.8); PLATELET COUNT 256 K/MM3 (134-434); RBC 3.18 M/mm3 (4.00-5.60); RDW 14.8 % (11.9-15.9); WHITE BLOOD COUNT 6.9 K/mm3 (4.0-10.0)
[2019-10-15 11:10] LABS: INR 1.47 (0.83-1.09); PROTHROMBIN TIME (PATIENT) 17.4 SEC (9.7-13.0)
[2019-10-15 11:12] LABS: ACTIVATED PTT 30.5 SECONDS (25.2-36.5)
[2019-10-15 11:32] LABS: BILIRUBIN,TOTAL 0.8 mg/dL (0.2-1); BLOOD UREA NITROGEN 10.5 mg/dL (7-18); CALCIUM 8.5 mg/dL (8.5-10.1); CREATININE 0.8 mg/dL (0.55-1.3); POTASSIUM 4.1 mmol/L (3.5-5.1); TOT PROT 6.1 g/dl (6.4-8.2)
[2019-10-15] MEDS ORDERED: ACETAMINOPHEN 1000 MG/100 ML VIAL (NON FORMULARY) IVPB ONE (12:48)
--- NOTE | 2019-10-15 12:49 | HP ---
Admitting History and Physical - Admission History Source: Patient Limitations to Obtaining History: No Limitations - Past Medical History Cardiovascular: Yes: AFIB, CAD, HTN, Hyperlipdemia Pulmonary: Yes: COPD Renal/: Yes: BPH Rheumatology: Yes: Gout Endocrine: Yes: Diabetes Mellitus - Past Surgical History Past Surgical History: Yes: Stent - Smoking History Smoking history: Never smoked Have you smoked in the past 12 months: No If you are a former smoker, when did you quit?: 16 - Alcohol/Substance Use Hx Alcohol Use: No History of Substance Use: reports: None - Social History ADL: Independent Occupation: Retired History of Recent Travel: No Home Medications - Allergies Allergies/Adverse Reactions: Allergies Allergy/AdvReac Type Severity Reaction Status Date / Time No Known Allergies Allergy Verified 10/15/19 09:38 - Home Medications Home Medications: Ambulatory Orders Colchicine 0.6 mg PO HS PRN 05/06/17 Finasteride 5 mg PO DAILY 05/06/17 Ipratropium/Albuterol Sulfate [Iprat-Albut 0.5-3(2.5) mg/3 ml] 3 ml IH DAILY Digoxin [Lanoxin -] 0.125 mg PO HS 03/04/18 Gabapentin 300 mg PO BID 03/04/18 Albuterol Sulfate [Proair Hfa] 8.5 gm IH QID 01/03/19 Metformin HCl [Glucophage] 500 mg PO DAILY 01/03/19 Tamsulosin HCl [Flomax] 0.4 mg PO BID 01/03/19 Allopurinol [Zyloprim -] 200 mg PO DAILY 09/27/19 Magnesium 2 tab PO BID 10/08/19 Mometasone Furoate [Asmanex 110Mcg -] 1 inh IH BID 10/08/19 Melatonin 5 mg PO HS PRN tab 10/13/19 Metoprolol Tartrate [Lopressor -] 50 mg PO TID #90 tablet 10/13/19 Pantoprazole Sodium [Protonix -] 40 mg PO DAILY #30 tablet.ec 10/13/19 Review of Systems - Review of Systems Constitutional: reports: No Symptoms Eyes: reports: No Symptoms HENT: reports: No Symptoms Neck: reports: No Symptoms Cardiovascular: reports: Palpitations, Shortness of Breath Respiratory: reports: SOB, SOB on Exertion Gastrointestinal: reports: No Symptoms Genitourinary: reports: No Symptoms Breasts: reports: No Symptoms Reported Musculoskeletal: reports: Extremity Pain (rle), Muscle Weakness Integumentary: reports: No Symptoms Neurological: reports: No Symptoms Endocrine: reports: No Symptoms Hematology/Lymphatic: reports: No Symptoms Psychiatric: reports: No Symptoms Physical Examination Vital Signs: Vital Signs Temperature 98.0 F 10/15/19 09:38 Pulse Rate 100 H 10/15/19 09:38 Respiratory Rate 18 10/15/19 09:38 Blood Pressure 168/81 10/15/19 09:38 O2 Sat by Pulse Oximetry (%) 98 10/15/19 09:38 Constitutional: Yes: No Distress, Calm Eyes: Yes: Conjunctiva Clear HENT: Yes: Atraumatic Neck: Yes: Supple Cardiovascular: Yes: Pulse Irregular Respiratory: Yes: Regular, Diminished Gastrointestinal: Yes: Normal Bowel Sounds, Soft Extremities: Yes: Calf Tenderness (rle), Erythema, Other (rle ttp and warm) Edema: Yes Edema: RLE: 4+ Neurological: Yes: Alert, Oriented Psychiatric: Yes: Alert, Oriented Labs: CBC, BMP 10/15/19 10:22 10/15/19 10:22 Problem List - Problems (1) Edema of right lower extremity Code(s): R60.0 - LOCALIZED EDEMA (2) Atrial fibrillation Code(s): I48.91 - UNSPECIFIED ATRIAL FIBRILLATION (3) COPD (chronic obstructive pulmonary disease) Code(s): J44.9 - CHRONIC OBSTRUCTIVE PULMONARY DISEASE, UNSPECIFIED (4) Diabetes mellitus Code(s): E11.9 - TYPE 2 DIABETES MELLITUS WITHOUT COMPLICATIONS (5) GI bleed Code(s): K92.2 - GASTROINTESTINAL HEMORRHAGE, UNSPECIFIED (6) HLD (hyperlipidemia) Code(s): E78.5 - HYPERLIPIDEMIA, UNSPECIFIED (7) Hypertension Code(s): I10 - ESSENTIAL (PRIMARY) HYPERTENSION Qualifiers:
[2019-10-15] MEDS ORDERED: COLCHICINE 0.6 MG CAP PO PRN (12:51)
[2019-10-15] MEDS ORDERED: MELATONIN 5 MG TABLETS PO PRN (12:51)
[2019-10-15] MEDS ORDERED: ACETAMINOPHEN INJECTION 100 ML IVPB ONE (13:16)
[2019-10-15] MEDS ORDERED: METOPROLOL TARTRATE 50 MG TABLET (FP) PO SCH (14:00)
[2019-10-15] MEDS ORDERED: ALBUTEROL SO4 8 GM HFA INHALER IH SCH (14:00)
[2019-10-15] MEDS ORDERED: traMADol HCL 50 MG TABLET ONE (14:28)
[2019-10-15] MEDS ORDERED: traMADol HCL 50 MG TABLET PO ONE (14:28)
--- NOTE | 2019-10-15 15:31 | CON.CARD ---
Cardiology Consult (text) - Consultation Consultation Note: Chief Complaint: rle edema History of Present Illness: 79 yo male presented to ER due to RLE edema. Recent admit for gib. Has been home a few days and noticed increased swelling in rle. No cp sob palps dizzy loc pnd orthopnea le edema. Sees dr lara for cardio. PMH: CAD/pci HTN HPL COPD BPH afib gout DM - Alcohol/Substance Use Hx Alcohol Use: No - Smoking History Have you smoked in the past 12 months: No If you are a former smoker, when did you quit?: MORE THAN 10 YEARS Home Medications - Allergies Allergies/Adverse Reactions: Allergies Allergy/AdvReac Type Severity Reaction Status Date / Time No Known Allergies Allergy Verified 10/15/19 09:38 Home Medications Medication Instructions Recorded Colchicine 0.6 mg PO HS PRN 05/06/17 Finasteride 5 mg PO DAILY 05/06/17 Ipratropium/Albuterol Sulfate 3 ml IH DAILY 06/21/17 [Iprat-Albut 0.5-3(2.5) mg/3 ml] Digoxin [Lanoxin -] 0.125 mg PO HS 03/04/18 Gabapentin 300 mg PO BID 03/04/18 Albuterol Sulfate [Proair Hfa] 8.5 gm IH QID 01/03/19 Metformin HCl [Glucophage] 500 mg PO DAILY 01/03/19 Tamsulosin HCl [Flomax] 0.4 mg PO BID 01/03/19 Allopurinol [Zyloprim -] 200 mg PO DAILY 09/27/19 Magnesium 2 tab PO BID 10/08/19 Mometasone Furoate [Asmanex 110Mcg 1 inh IH BID 10/08/19 -] Melatonin 5 mg PO HS PRN tab 10/13/19 Metoprolol Tartrate [Lopressor -] 50 mg PO TID #90 tablet 10/13/19 Pantoprazole Sodium [Protonix -] 40 mg PO DAILY #30 tablet.ec 10/13/19 Family Disease History - Family Disease History Family History: Denies (no cmp) Review of Systems - Review of Systems Constitutional: denies: Chills, Fever Eyes: denies: Eye Pain HENT: denies: Nasal Congestion Neck: denies: Stiffness Respiratory: denies: Orthopnea, PND Genitourinary: denies: Burning, Hematuria Musculoskeletal: denies: Muscle Pain Integumentary: denies: Rash Neurological: denies: Seizure, Syncope Endocrine: denies: Excessive Sweating Hematology/Lymphatic: denies: Excessive Bleeding Vital Signs: Vital Signs Period Temp Pulse Resp BP Sys/Berumen Pulse Ox Last 24 Hr 98.0 F-98.0 F 100-107 18-18 133-168/73-81 96-98 Constitutional: Yes: Well Nourished, No Distress Eyes: No: Sclera Icterus HENT: No: Nasal Congestion Neck: No: Decreased ROM Respiratory: Yes: CTA Bilaterally. No: Accessory Muscle Use, Rales, Wheezes Gastrointestinal: Yes: Normal Bowel Sounds. No: Distention, Hepatomegaly, Palpable Mass, Tenderness Cardiovascular: Yes: Pulse Irregular JVD: No Carotid Bruit: No PMI: Non-Displaced Heart Sounds: Yes: S1, S2. No: Gallop Murmur: No: Systolic Murmur, Diastolic Murmur Musculoskeletal: Yes: Other (No kyphosis) Extremities: No: Cool, Cyanosis Edema: 1+ rle edema Peripheral Pulses: 2+ Left Carotid, 2+ Right Carotid, 2+ Left Doralis Pedis, 2+ Right Dorsalis Pedis Integumentary: No: Jaundice Neurological: Yes: Alert, Oriented (x3) Psychiatric: No: Agitated Laboratory Last Values WBC 6.9 K/mm3 (4.0-10.0) 10/15/19 10:22 RBC 3.18 M/mm3 (4.00-5.60) L 10/15/19 10:22 Hgb 9.6 GM/dL (11.7-16.9) L 10/15/19 10:22 Hct 28.3 % (35.4-49) L 10/15/19 10:22 MCV 88.9 fl (80-96) 10/15/19 10:22 MCH 30.1 pg (25.7-33.7) 10/15/19 10:22 MCHC 33.8 g/dl (32.0-35.9) 10/15/19 10:22 RDW 14.8 % (11.9-15.9) 10/15/19 10:22 Plt Count 256 K/MM3 (134-434) D 10/15/19 10:22 MPV 8.5 fl (7.5-11.1) 10/15/19 10:22 Absolute Neuts (auto) 5.0 K/mm3 (1.5-8.0) 10/15/19 10:22 Neutrophils % 72.9 % (42.8-82.8) D 10/15/19 10:22 Lymphocytes % 14.8 % (8-40) D 10/15/19 10:22 Monocytes % 11.1 % (3.8-10.2) H 10/15/19 10:22 Eosinophils % 0.7 % (0-4.5) 10/15/19 10:22 Basophils % 0.5 % (0-2.0) 10/15/19 10:22 Nucleated RBC % 0 % (0-0) 10/15/19 10:22 PT with INR 17.40 SEC (9.7-13.0) H 10/15/19 10:22 INR 1.47 (0.83-1.09) H 10/15/19 10:22 PTT (Actin FS) 30.5 SECONDS (25.2-36.5) 10/15/19 10:22 Sodium 136 mmol/L (136-145) 10/15/19 10:22 Potassium 4.1 mmol/L (3.5-5.1) 10/15/19 10:22 Chloride 100 mmol/L (98-107) 10/15/19 10:22 Carbon Dioxide 29 mmol/L (21-32) 10/15/19 10:22 Anion Gap 7 MMOL/L (8-16) L 10/15/19 10:22 BUN 10.5 mg/dL (7-18) 10/15/19 10:22 Creatinine 0.8 mg/dL (0.55-1.3) 10/15/19 10:22 Est GFR (CKD-EPI)AfAm 99.17 10/15/19 10:22 Est GFR (CKD-EPI)NonAf 85.56 10/15/19 10:22 Random Glucose 135 mg/dL (74-106) H 10/15/19 10:22 Calcium 8.5 mg/dL (8.5-10.1) 10/15/19 10:22 Total Bilirubin 0.8 mg/dL (0.2-1) 10/15/19 10:22 AST 20 U/L (15-37) 10/15/19 10:22 ALT 31 U/L (13-61) 10/15/19 10:22 Alkaline Phosphatase 61 U/L (45-117) 10/15/19 10:22 Total Protein 6.1 g/dl (6.4-8.2) L 10/15/19 10:22 Albumin 3.0 g/dl (3.4-5.0) L 10/15/19 10:22 MIBI 02/20 (lexiscan): no STs, no isch; nl EF; mild LVE w/o TID Echo 01/20: TDS; nl LV/EF; nl RV; nl LA; mild /AI; nl LAP (no RVSP) echo 04/2017: tds; nl lv, rv tds, mod-sev mr, mod tr, nl rvsp, mild ar, mild ao root dil echo 09/2019: nl lv/rv, lae, mild mr, mild ar, mild-mod tr, nl rvsp a/p: le edema: -pt with RLE edema. duplex neg for dvt here. Likely venous insuff, can resume his prior lasix 40 qd. -no signs chf, acs. recent echo unremarkable. 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
[2019-10-15 16:30] VITALS: BP 126/70; PULSE 98
[2019-10-15] MEDS ORDERED: GABAPENTIN 300 MG CAPSULE PO SCH (22:00)
[2019-10-15] MEDS ORDERED: MOMETASONE FUROATE 110 MCG/IH INHALER IH SCH (22:00)
[2019-10-15] MEDS ORDERED: TAMSULOSIN HCL 0.4 MG CAP PO SCH (22:00)
[2019-10-15] MEDS ORDERED: DIGOXIN 0.125 MG TABLET (FP) PO SCH (22:00)
[2019-10-16] MEDS ORDERED: metFORMIN HCL 500 MG TABLET (FP) PO SCH (07:00)
[2019-10-16] MEDS ORDERED: FINASTERIDE 5 MG TABLET (FP) PO SCH (10:00)
[2019-10-16] MEDS ORDERED: PANTOPRAZOLE 40 MG TABLET PO SCH (10:00)
[2019-10-16] MEDS ORDERED: ALLOPURINOL 100 MG TABLET (FP) PO SCH (10:00)
== END 2019-10-15 16:30 | disposition home or self-care (01) ==
LOC: JER 09:24
DX: M79.89 Other specified soft tissue disorders (principal); I48.91 Unspecified atrial fibrillation; J44.9 Chronic obstructive pulmonary disease, unspecified; I50.9 Heart failure, unspecified; Z87.891 Personal history of nicotine dependence; I10 Essential (primary) hypertension; E78.00 Pure hypercholesterolemia, unspecified; Z95.5 Presence of coronary angioplasty implant and graft; E11.9 Type 2 diabetes mellitus without complications
CPT/HCPCS: 36415; 80053; 85025; 85610; 85730; 93971-TC; 99282-25

== ENCOUNTER 2019-11-15 09:47 | Emergency (ER) | payer OTHER, MEDICARE ==
--- NOTE | 2019-11-15 10:13 | PDOC ---
History of Present Illness - General Chief Complaint: Redness To Affected Area Stated Complaint: GOUT Time Seen by Provider: 11/15/19 09:49 - History of Present Illness Initial Comments: Beck Elmore is a 79 y/o male with reported PMH significant for COPD, DM, a- fib on eliquis, gout, presenting today with right foot redness, pain, and swelling that started 2 days ago. Pt reports that he thinks he is having a gout flare up. No trauma injury to the foot. Denies pain radiation. Denies fever/chills. Denies chest pain/shortness of breath. Denies abd pain. Denies dysuria/diarrhea. Denies lower extremity swelling except for right foot. Denies headache. Reports that the pain is constant. Reports mild chest congestion. Past History - Past Medical History Allergies/Adverse Reactions: Allergies Allergy/AdvReac Type Severity Reaction Status Date / Time No Known Allergies Allergy Verified 11/15/19 10:09 Home Medications: Ambulatory Orders Colchicine 0.6 mg PO HS PRN 05/06/17 Finasteride 5 mg PO DAILY 05/06/17 Ipratropium/Albuterol Sulfate [Iprat-Albut 0.5-3(2.5) mg/3 ml] 3 ml IH DAILY 06/21/17 Digoxin [Lanoxin -] 0.125 mg PO HS 03/04/18 Gabapentin 300 mg PO BID 03/04/18 Albuterol Sulfate [Proair Hfa] 8.5 gm IH QID 01/03/19 Metformin HCl [Glucophage] 500 mg PO DAILY 01/03/19 Tamsulosin HCl [Flomax] 0.4 mg PO BID 01/03/19 Allopurinol [Zyloprim -] 200 mg PO DAILY 09/27/19 Magnesium 2 tab PO BID 10/08/19 Melatonin 5 mg PO HS PRN tab 10/13/19 Pantoprazole Sodium [Protonix -] 40 mg PO DAILY #30 tablet.ec 10/13/19 Apixaban [Eliquis] 1 tab PO BID 11/05/19 Colchicine 0.6 mg PO BID 4 Days #8 capsule 11/15/19 Fluticasone/Vilanterol [Breo Ellipta 100-25 Mcg INH] 1 each IH DAILY 11/15/19 Metoprolol Succinate [Toprol Xl] 100 mg PO BID 11/15/19 Mometasone Furoate 1 spray NS BID 11/15/19 Olmesartan Medoxomil [Benicar (Nf)] 40 mg PO HS 11/15/19 predniSONE [Deltasone -] 40 mg PO DAILY 4 Days #4 tablet 11/15/19 Anemia: No Asthma: No Cancer: No Cardiac Disorders: Yes (atrial fibrillation-ablation) CVA: No COPD: Yes CHF: (in 2017) Dementia: No Diabetes: Yes GI Disorders: No Disorders: Yes (prostatic hypertrophy) HTN: Yes Hypercholesterolemia: Yes Liver Disease: No Seizures: No Thyroid Disease: No - Surgical History Cardiac Surgery: Yes (stent 2017) - Psycho Social/Smoking Cessation Hx Smoking History: Former smoker Have you smoked in the past 12 months: No If you are a former smoker, when did you quit?: 16 'Breaking Loose' booklet given: 10/08/19 Hx Alcohol Use: No Drug/Substance Use Hx: No Substance Use Type: Alcohol Hx Substance Use Treatment: No Review of Systems - Review of Systems Comments:: ROS GENERAL/CONSTITUTIONAL: No fever or chills. No weakness._ HEAD, EYES, EARS, NOSE AND THROAT: No change in vision. No change in hearing. No sore throat._ CARDIOVASCULAR: No chest pain or shortness of breath_ RESPIRATORY: Denies cough, hemoptysis_ GASTROINTESTINAL: No nausea, vomiting, diarrhea or constipation._ GENITOURINARY: No dysuria, frequency, or change in urination._ MUSCULOSKELETAL: Reports right foot redness and pain. No neck or back pain._ SKIN: No rash_ NEUROLOGIC: No headache, vertigo, loss of consciousness, or change in strength/sensation._ ENDOCRINE: No increased thirst. No abnormal weight change_ HEMATOLOGIC/LYMPHATIC: No anemia, easy bleeding, or history of blood clots._ ALLERGIC/IMMUNOLOGIC: No hives or skin allergy._ *Physical Exam - Physical Exam GENERAL: Awake, alert, and oriented to person/place/time, in no acute distress_ HEAD: No signs of trauma, normocephalic, atraumatic _ EYES: PERRLA, EOMI, sclera anicteric, conjunctiva clear_ ENT: Hearing grossly normal, nares patent, oropharynx clear without exudates. No uvular deviation. Moist mucosa_ NECK: Normal ROM, supple, no lymphadenopathy, JVD, or masses_ LUNGS: No distress, speaks in full sentences, clear to auscultation bilaterally _ HEART: Regular rate and rhythm, normal S1 and S2, no murmurs appreciated, periph eral pulses normal and equal bilaterally._ ABDOMEN: Soft, nontender, normoactive bowel sounds. No guarding, no rebound. No masses_ EXTREMITIES: Right foot swelling and redness compared to the left foot. Redness and swelling do not extend past the ankle. No calf swelling or tenderness bilaterally. Minimal warmth to touch. Neurovascularly intact. Cap refill < 2 sec. NEUROLOGICAL: Cranial nerves II through XII grossly intact. Normal speech, normal gait, no focal sensorimotor deficits _ SKIN: Warm, Dry, normal turgor, no rashes or lesions noted_ ED Treatment Course - LABORATORY CBC & Chemistry Diagram: 11/15/19 11:00 11/15/19 11:00 Medical Decision Making - Medical Decision Making 11/15/19 10:19 79M presenting today with right foot redness, pain, and swelling. DDx includes gout flare vs cellulitis. -cbc, cmp -cxr -decadron, colchicine 11/15/19 11:22 CXR negative for acute pathology. 11/15/19 11:42 Labs reviewed. Laboratory Last Values WBC 7.9 K/mm3 (4.0-10.8) 11/15/19 11:00 RBC 4.66 M/mm3 (4.00-5.60) 11/15/19 11:00 Hgb 12.1 GM/dl (11.7-16.9) 11/15/19 11:00 Hct 38.3 % (35.4-49) D 11/15/19 11:00 MCV 82.3 fl (80-96) 11/15/19 11:00 MCH 26.0 pg (25.7-33.7) D 11/15/19 11:00 MCHC 31.6 g/dl (32.0-35.9) L 11/15/19 11:00 RDW 14.4 % (11.9-15.9) 11/15/19 11:00 Plt Count 273 K/MM3 (134-434) D 11/15/19 11:00 MPV 8.1 fl (7.5-11.1) 11/15/19 11:00 Absolute Neuts (auto) 5.5 K/mm3 11/15/19 11:00 Neutrophils % 68.7 % (42.8-82.8) 11/15/19 11:00 Lymphocytes % 20.5 % (8-40) 11/15/19 11:00 Monocytes % 8.6 % (3.8-10.2) 11/15/19 11:00 Eosinophils % 1.8 % (0-4.5) D 11/15/19 11:00 Basophils % 0.4 % (0-2.0) 11/15/19 11:00 Sodium 134 mmol/L (136-145) L 11/15/19 11:00 Potassium 4.8 mmol/L (3.5-5.1) 11/15/19 11:00 Chloride 99 mmol/L (98-107) 11/15/19 11:00 Carbon Dioxide 28 mmol/L (21-32) 11/15/19 11:00 Anion Gap 7 MMOL/L (8-16) L 11/15/19 11:00 BUN 20.0 mg/dl (7-18) H 11/15/19 11:00 Creatinine 0.8 mg/dl (0.55-1.3) 11/15/19 11:00 Est GFR (CKD-EPI)AfAm 99.17 11/15/19 11:00 Est GFR (CKD-EPI)NonAf 85.56 11/15/19 11:00 Random Glucose 152 mg/dl (74-106) H 11/15/19 11:00 Uric Acid 7.4 mg/dl (2.6-7.2) H 11/15/19 11:00 Calcium 9.7 mg/dl (8.5-10) 11/15/19 11:00 Total Bilirubin 0.7 mg/dl (0.2-1) 11/15/19 11:00 AST 30 U/L (15-37) 11/15/19 11:00 ALT 19 U/L (13-61) 11/15/19 11:00 Alkaline Phosphatase 58 U/L (45-117) 11/15/19 11:00 Total Protein 7.0 g/dl (6.4-8.2) 11/15/19 11:00 Albumin 3.7 g/dl (3.4-5.0) 11/15/19 11:00 Pt reassessed. Reports mild improvement of pain. Plan to d/c home with prednisone and colchicine for gout flare up. PCP f/u. All questions answered. Return precautions given. Pt verbalized understanding and agreement with plan. Discharge - Discharge Information Problems reviewed: Yes Clinical Impression/Diagnosis: Gout Condition: Stable Disposition: HOME - Admission No - Additional Discharge Information Prescriptions: Colchicine 0.6 mg PO BID 4 Days #8 capsule predniSONE [Deltasone -] 40 mg PO DAILY 4 Days #4 tablet - Follow up/Referral Referrals: Beck Mendez MD [Primary Care Provider] - - Patient Discharge Instructions Additional Instructions: Please take Prednisone 40 mg once a day for four days and Colchicine 0.6 mg twice per day for four days. Please follow up with Dr. Mendez this week. If you experience any new, worsening, or concerning symptoms, including increase in leg swelling or change in foot temperature, difficulty walking, or any other concerns, please return to the emergency department. - Post Discharge Activity
[2019-11-15 10:17] VITALS: BP 123/80; PULSE 80; TEMP 98.1; BMI 36.8
[2019-11-15] MEDS ORDERED: DEXAMETHASONE SOD PHOSPHATE 10 MG/1 ML VIAL IVPUSH ONE (10:32)
[2019-11-15] MEDS ORDERED: COLCHICINE 0.6 MG CAP PO ONE (10:32)
[2019-11-15] MEDS ORDERED: COLCHICINE 0.6 MG CAP ONE (10:40)
[2019-11-15] MEDS ORDERED: DEXAMETHASONE SOD PHOSPHATE 10 MG/1 ML VIAL ONE (10:40)
[2019-11-15] MEDS ORDERED: ALBUTEROL SO4 2.5/IPRATROPIUM 0.5 INH SOL 3 ML VIAL.NEB. NEB ONE ×2 (10:41→11:08)
[2019-11-15 11:26] LABS: BASO % 0.4 % (0-2.0); EOS % 1.8 % (0-4.5); HEMATOCRIT 38.3 % (35.4-49); HEMOGLOBIN 12.1 GM/dl (11.7-16.9); LYMPH % 20.5 % (8-40); MCHC 31.6 g/dl (32.0-35.9); MEAN CELL VOLUME 82.3 fl (80-96); MEAN PLT VOLUME 8.1 fl (7.5-11.1); MONO % 8.6 % (3.8-10.2); NEUT % 68.7 % (42.8-82.8); PLATELET COUNT 273 K/MM3 (134-434); RBC 4.66 M/mm3 (4.00-5.60); RDW 14.4 % (11.9-15.9); WHITE BLOOD COUNT 7.9 K/mm3 (4.0-10.8)
[2019-11-15 11:32] LABS: ALBUMIN 3.7 g/dl (3.4-5.0); BILIRUBIN,TOTAL 0.7 mg/dl (0.2-1); CALCIUM 9.7 mg/dl (8.5-10); CREATININE 0.8 mg/dl (0.55-1.3); POTASSIUM 4.8 mmol/L (3.5-5.1)
== END 2019-11-15 12:03 | disposition home or self-care (01) ==
LOC: SUPCPDRO 09:47 → FER 09:47
PROC: 3E0F7GC Introduction of Other Therapeutic Substance into Respiratory Tract, Via Natural or Artificial Opening (ICD-10-PCS; principal; 2019-11-15)
PROC: 3E0F7GC Introduction of Other Therapeutic Substance into Respiratory Tract, Via Natural or Artificial Opening (ICD-10-PCS; 2019-11-15)
DX: M10.9 Gout, unspecified (principal); E11.9 Type 2 diabetes mellitus without complications; I48.91 Unspecified atrial fibrillation; Z79.01 Long term (current) use of anticoagulants; J44.9 Chronic obstructive pulmonary disease, unspecified; Z87.891 Personal history of nicotine dependence; I50.9 Heart failure, unspecified; N40.0 Benign prostatic hyperplasia without lower urinary tract symptoms; Z95.5 Presence of coronary angioplasty implant and graft; E78.00 Pure hypercholesterolemia, unspecified
CPT/HCPCS: 36415; 71046-TC-FY; 80053; 84550; 85025; 99284-25; J1100

== ENCOUNTER 2021-01-15 12:52 | Observation (INO) | payer OTHER, MEDICARE ==
[2021-01-15] MEDS: LABETALOL HCL 200 MG TABLET (FP) PO SCH ×2 (15:03→22:05)
[2021-01-15] MEDS: EPLERENONE 25 MG TABLET PO SCH (15:03)
[2021-01-15 15:18] LABS: BASO % 0.3 % (0-2.0); EOS % 1.2 % (0-4.5); HEMATOCRIT 47.2 % (35.4-49); HEMOGLOBIN 16.1 GM/dL (11.7-16.9); LYMPH % 19.3 % (8-40); MCH 29.6 pg (25.7-33.7); MCHC 34.1 g/dl (32.0-35.9); MEAN CELL VOLUME 86.7 fl (80-96); MEAN PLT VOLUME 7.9 fl (7.5-11.1); MONO % 6.3 % (3.8-10.2); NEUT % 72.9 % (42.8-82.8); PLATELET COUNT 135 K/MM3 (134-434); RBC 5.44 M/mm3 (4.00-5.60); RDW 17.3 % (11.9-15.9); WHITE BLOOD COUNT 6.4 K/mm3 (4.0-10.0)
[2021-01-15 15:26] LABS: INR 1.44 (0.83-1.09); PROTHROMBIN TIME (PATIENT) 17.5 SEC (9.7-13.0)
[2021-01-15 15:28] LABS: ACTIVATED PTT 33.2 SECONDS (25.2-36.5)
[2021-01-15 15:33] LABS: CHLORIDE 104 mmol/L (98-107); SODIUM 140 mmol/L (136-145)
[2021-01-15 15:36] LABS: ALBUMIN 3.5 g/dl (3.4-5.0); ANION GAP 5 MMOL/L (8-16); BLOOD UREA NITROGEN 14.1 mg/dL (7-18); CALCIUM 9.2 mg/dL (8.5-10.1); CO2 31 mmol/L (21-32); GLUCOSE,RANDOM 148 mg/dL (74-106)
[2021-01-15 15:39] LABS: CREATININE 0.7 mg/dL (0.55-1.3); SGOT/AST 30 U/L (15-37); SGPT/ALT 35 U/L (13-61)
[2021-01-15 15:41] LABS: BILIRUBIN,TOTAL 0.8 mg/dL (0.2-1); TOT PROT 6.6 g/dl (6.4-8.2)
[2021-01-15 15:42] LABS: ALK PHOS 52 U/L (45-117)
[2021-01-15 15:45] LABS: N-TERMINAL BNP 1953.3 pg/ml (5-450)
[2021-01-15] MEDS ORDERED: MELATONIN 5 MG TABLETS PO PRN (17:00)
[2021-01-15 21:12] VITALS: BMI 36.9
[2021-01-15] MEDS ORDERED: LOSARTAN POTASSIUM 50 MG TABLET PO SCH (22:00)
[2021-01-15] MEDS: APIXABAN 5 MG TABLET PO SCH (22:05)
[2021-01-15] MEDS: INSULIN SLIDING SCALE (NOVOLOG) 1 VIAL SQ SCH (22:16)
[2021-01-15] MEDS: BUDESONIDE/FORMETEROL FUMARATE 80/4.5 mcg INHALER IH SCH ×2 (22:19→22:27)
[2021-01-15] MEDS ORDERED: ALBUTEROL SO4 HFA INHALER IH PRN (23:17)
[2021-01-16] MEDS: LABETALOL HCL 200 MG TABLET (FP) PO SCH ×2 (05:46→15:08)
[2021-01-16] MEDS: INSULIN SLIDING SCALE (NOVOLOG) 1 VIAL SQ SCH ×3 (06:00→18:06)
[2021-01-16 08:19] LABS: BLOOD UREA NITROGEN 16.8 mg/dL (7-18); CALCIUM 8.9 mg/dL (8.5-10.1); MAGNESIUM 1.5 mg/dL (1.8-2.4)
[2021-01-16 08:22] LABS: CREATININE 0.7 mg/dL (0.55-1.3)
[2021-01-16] MEDS ORDERED: PT OWN MED DRAWER 7, Y5N ONE (09:12)
[2021-01-16] MEDS: BUDESONIDE/FORMETEROL FUMARATE 80/4.5 mcg INHALER IH SCH (09:22)
[2021-01-16] MEDS: APIXABAN 5 MG TABLET PO SCH (09:22)
[2021-01-16] MEDS: EPLERENONE 25 MG TABLET PO SCH (09:22)
[2021-01-16 09:51] LABS: BASO % 0.7 % (0-2.0); EOS % 1.5 % (0-4.5); HEMATOCRIT 45.2 % (35.4-49); HEMOGLOBIN 15.5 GM/dL (11.7-16.9); MCH 29.8 pg (25.7-33.7); MCHC 34.2 g/dl (32.0-35.9); MEAN CELL VOLUME 87.1 fl (80-96); MONO % 7.7 % (3.8-10.2); NEUT % 59.1 % (42.8-82.8); PLATELET COUNT 126 K/MM3 (134-434); RBC 5.18 M/mm3 (4.00-5.60); WHITE BLOOD COUNT 4.9 K/mm3 (4.0-10.0)
[2021-01-16] MEDS ORDERED: TAMSULOSIN HCL 0.4 MG CAP PO SCH (10:00)
[2021-01-16] MEDS ORDERED: GABAPENTIN 300 MG CAPSULE PO SCH (10:00)
[2021-01-16] MEDS ORDERED: ALLOPURINOL 100 MG TABLET (FP) PO SCH (10:00)
[2021-01-16] MEDS ORDERED: MAGNESIUM SULF 50% (8.12 MEQ/2 ML-1 GM VIAL) IVPB ONE (14:10)
[2021-01-16 15:24] VITALS: BP 132/53; PULSE 90; TEMP 97.5
[2021-01-16] MEDS ORDERED: ROSUVASTATIN CA 5 MG TABLET (FP) PO SCH (22:00)
== END 2021-01-16 18:23 | disposition home or self-care (01) ==
LOC: JER 12:52 → JERBED 16:01 → J4W 20:43
PROVIDERS: ADMIT Internal Medicine
PROC: 3E033GC Introduction of Other Therapeutic Substance into Peripheral Vein, Percutaneous Approach (ICD-10-PCS; principal; 2021-01-15)
DX: I11.0 Hypertensive heart disease with heart failure (principal); I48.91 Unspecified atrial fibrillation; M10.9 Gout, unspecified; J44.9 Chronic obstructive pulmonary disease, unspecified; G47.00 Insomnia, unspecified; I16.0 Hypertensive urgency; Z95.5 Presence of coronary angioplasty implant and graft; I25.10 Atherosclerotic heart disease of native coronary artery without angina pectoris; E11.9 Type 2 diabetes mellitus without complications; I50.9 Heart failure, unspecified
CPT/HCPCS: 36415; 71045-TC-FY; 80048; 80053; 82550; 82962; 83036; 83735; 83880; 84439; 84443; 84484; 85025; 85610; 85730; 87804; 93005; 93010; 93306-TC; 94660; 96374; 99285-25; C9803; G0378; U0003; U0005